=== PATIENT | female | born 1985 | race Caucasian/White ===

== ENCOUNTER 2016-11-12 16:42 | Inpatient (IN) | payer OTHER ==
[~2016-11-12] VITALS: Ht 165.1 cm; Wt 75.0 kg
[2016-11-12 16:45] VITALS: Ht 165.1 cm; Wt 75.0 kg
--- NOTE | 2016-11-12 17:59 | ERA ---
ER Documentation Chief Complaint Date/Time DATE: 11/12/16 TIME: 17:58 Chief Complaint SENT BY PMD FOR LOW HGB 4.0,WEAKNESS HPI 31-year-old female history of chronic anemia with a hemoglobin of 4 since June. The patient has tried B12 shots, last on the seventh of this month. Her e tailer, oncologist sent her to the emergency room. 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 The patient states that she feels her usual self which consists of generalized weakness, dyspnea on exertion. She denies any hematemesis, no melena, no other sources of bleeding. ROS All systems reviewed and are negative except as per history of present illness. Medications Home Meds Reported Medications Ferrous Sulfate (Iron) Unknown Strength Capsule.er, 1 TAB PO DAILY, CAP 11/12/16 Ascorbic Acid* (Vitamin C*) 500 Mg Capsule.sa, 500 MG PO DAILY, CAP 11/12/16 Folic Acid* (Folic Acid*) 1 Mg Tablet, 1 MG PO DAILY, TAB 11/12/16 Prednisone* (Prednisone*) 10 Mg Tab, 10 MG PO DAILY, TAB 11/12/16 Albuterol Sulfate* (Ventolin HFA*) 18 Gm Hfa.aer.ad, 2 PUFF INHALATION Q4H, #1 INHALER 11/12/16 Azithromycin* (Zithromax* Tri-Frank) 500 Mg Tablet, 250 MG PO DAILY for 3 Days, TAB 11/12/16 Allergies Allergies: Coded Allergies: No Known Allergy (Unverified , 11/12/16) PMhx/Soc Medical and Surgical Hx: pt denies Surgical Hx Hx Miscellaneous Medical Probl: Yes (Anemia) Hx Alcohol Use: No Hx Substance Use: No Hx Tobacco Use: No Smoking Status: Never smoker FmHx Family History: No diabetes Physical Exam Vitals Vital Signs Date Time Temp Pulse Resp B/P Pulse Ox O2 Delivery O2 Flow Rate FiO2 11/12/16 21:03 98.7 107 18 115/56 100 Room Air 11/12/16 20:36 98.6 111 16 108/51 98 Room Air 11/12/16 16:45 98.0 125 18 118/68 98 Physical Exam General: Well developed, well nourished, no acute distress, pallor Head: Normocephalic, atraumatic. Eyes: Pupils equally reactive, EOM intact ENT: Moist mucous membranes Neck: Supple, no lymphadenopathy Respiratory: Lungs clear bilaterally, no distress Cardiovascular: Tachycardia, no murmurs, rubs, or gallops Abdominal: Soft, non-tender, non-distended, no peritoneal signs : Deferred MSK: No edema, no unilateral swelling, 5/5 strength Neurologic: Alert and oriented, moving all extremities, normal speech, no focal weakness, no cerebellar signs Skin: No rash, pallor Psych: Normal mood Result Diagram: 11/12/16 1821 11/12/16 182 Results 24 hrs Laboratory Tests Test 11/12/16 18:21 White Blood Count 17.710^3/ul Red Blood Count 1.1610^6/ul Hemoglobin 4.7g/dl Hematocrit 15.2% Mean Corpuscular Volume 131.0fl Mean Corpuscular Hemoglobin 40.5pg Mean Corpuscular Hemoglobin Concent 30.9g/dl Red Cell Distribution Width 28.4% Platelet Count 40495^3/UL Mean Platelet Volume 10.5fl Neutrophils % 60.0% Band Neutrophils % 4.0% Lymphocytes % 7.0% Monocytes % 14.0% Eosinophils % 1.0% Basophils % % Metamyelocytes % 2.0% Myelocytes % 4.0% Promyelocytes % 7.0% Blast Cells % 1.0% Nucleated Red Blood Cells % 354.0/100WBC Neutrophils # 49.310^3/ul Lymphocytes # 5.710^3/ul Monocytes # 11.310^3/ul Eosinophils # 0.810^3/ul Basophils # 10^3/ul Metamyelocytes # 1.6 Myelocytes # 3.2 Promyelocytes # 5.7 Platelet Estimate PLT APPEAR ADEQUATE Large Platelets FEW Dimorphic Red Blood Cells MODERATE Polychromasia MANY Poikilocytosis FEW Basophilic Stippling FEW Anisocytosis MANY Spherocytes FEW Tear Drop Cells FEW Rouleau MODERATE Schistocytes FEW Absolute Reticulocyte Count 0.230X10^6 Percent Reticulocyte Count 19.8% Prothrombin Time 15.0Sec Prothrombin Time Ratio 1.2 INR International Normalized Ratio 1.17 Activated Partial Thromboplast Time 28.4Sec Sodium Level 140mmol/L Potassium Level 4.3mmol/L Chloride Level 107mmol/L Carbon Dioxide Level 24mmol/L Anion Gap 13 Blood Urea Nitrogen 16mg/dl Creatinine 0.90mg/dl Glucose Level 119mg/dl Uric Acid 6.5mg/dl Calcium Level 8.6mg/dl Total Bilirubin 2.0mg/dl Direct Bilirubin 0.00mg/dl Indirect Bilirubin 2.0mg/dl Aspartate Amino Transf (AST/SGOT) 83IU/L Alanine Aminotransferase (ALT/SGPT) 30IU/L Alkaline Phosphatase 86IU/L Lactate Dehydrogenase 4735IU/L Total Protein 9.0g/dl Albumin 4.7g/dl Globulin 4.30g/dl Albumin/Globulin Ratio 1.09 Vitamin B12 Level 863pg/ml Folate 18.0ng/ml Serum HCG, Qualitative NEGATIVE Current Medications Medications (Trade) Dose Ordered Sig/Corey Route PRN Reason Start Time Stop Time Status Last Admin Dose Admin Ondansetron HCl (Zofran Inj) 4 mg BRIDGE ORDER PRN IV NAUSEA AND/OR VOMITING 11/12/16 20:30 4 20:29 Acetaminophen (Tylenol Tab) 650 mg ER BRIDGE PRN PO MILD PAIN/FEVER 11/12/16 20:30 11/13/16 20:29 Procedures/MDM LAB INTERPRETATION: Leukocytosis with immature cells, elevated LDH MEDICAL DECISION MAKING: The patient presents with a stable hemoglobin and significant anemia for since June. The patient's e tailer oncologist would like to admit the patient for bone marrow biopsy. She is concerned for underlying leukemia. ER COURSE: The patient's laboratory testing is suggestive of early leukemia. Initial recommendations for IV iron and Epogen were held based on this information. The patient will be arranged for bone marrow biopsy in the morning. The patient was informed of potential diagnosis. Dr. Pak was notified. The patient does not wish to have a blood transfusion despite her significant anemia. The patient verbalizes understanding, risks, benefits, alternatives were discussed. The patient states remote history of Sabianist and extreme concern for transfusion. I kept the patient and/or family informed of laboratory and diagnostic imaging results throughout the emergency room course. DISPOSITION PLAN: Medical surgical admission given the fact that the patient does not wish to have transfusion CONSULTATION: Accepting care team and consultations: I discussed the current laboratory data, diagnostic imaging and emergency care provided. Admitting team: Dr. Will Admitting team indication: Insurance directed Consulting services: Dr. Pak, hematology oncology Departure Diagnosis: Primary Impression: Symptomatic anemia Additional Impression: Pancytopenia Condition: Stable JULIOCESAR HICKEY MD Nov 12, 2016 17:59
[2016-11-12] MEDS ORDERED: AZIT500T2 PO (18:28)
[2016-11-12] MEDS ORDERED: ALBU18HF INHALATION (18:30)
[2016-11-12] MEDS ORDERED: FOLI-49 PO (18:31)
[2016-11-12] MEDS ORDERED: PRED10TA PO (18:31)
[2016-11-12 18:32] LABS: ADD SCAN DIFF NO
[2016-11-12] MEDS ORDERED: ASCO500C7 PO (18:32)
[2016-11-12] MEDS ORDERED: FERR325C PO (18:34)
[2016-11-12 18:35] LABS: ABNORMAL IP MESSAGE 1; HEMATOCRIT 15.2 % (37.0-47.0); MEAN CORPUSCULAR HEMOGLOBIN 40.5 pg (29.0-33.0); MEAN CORPUSCULAR HGB CONC 30.9 g/dl (32.0-37.0); MEAN PLATELET VOLUME 10.5 fl (7.4-10.4); PLATELET COUNT 132 10^3/UL (140-415); RED BLOOD COUNT 1.16 10^6/ul (4.20-5.40); RED CELL DISTRIBUTION WIDTH 28.4 % (11.5-14.5); RETICULOCYTE COUNT % 19.8 % (0.5-1.5)
[2016-11-12 18:46] LABS: INR 1.17; PARTIAL THROMBOPLASTIN TIME 28.4 Sec (25.0-35.0); PT RATIO 1.2
[2016-11-12 18:47] LABS: ALBUMIN 4.7 g/dl (3.3-4.9); ALBUMIN/GLOBULIN RATIO 1.09; CALCIUM 8.6 mg/dl (8.4-10.2); CREATININE 0.9 mg/dl (0.44-1.00); POTASSIUM 4.3 mmol/L (3.5-5.1); URIC ACID 6.5 mg/dl (3.1-7.9)
[2016-11-12] MEDS ORDERED: ONDANSETRON 4 MG INJ IV PRN (20:30)
[2016-11-12] MEDS ORDERED: ACETAMINOPHEN 325 MG TAB PO PRN ×2 (20:30→23:30)
[2016-11-12 20:32] LABS: EOSINOPHILS # 0.8 10^3/ul (0.0-0.5); LYMPHOCYTES # 5.7 10^3/ul (0.8-2.9); MONOCYTE # 11.3 10^3/ul (0.3-0.9); MYELOCYTES # 3.2; NEUTROPHIL # 49.3 10^3/ul (1.6-7.5)
[2016-11-12 20:33] LABS: ANISOCYTOSIS MANY; POIKILOCYTOSIS FEW
[2016-11-12 20:34] LABS: SPHEROCYTES FEW; TEAR DROP CELLS FEW
[2016-11-12 20:35] LABS: SCHISTOCYTES FEW
[2016-11-12 20:36] LABS: POLYCHROMASIA MANY
[2016-11-12 20:40] LABS: PLATELET ESTIMATE PLT APPEAR ADEQUATE
[2016-11-12 21:03] VITALS: TEMP 98.7
[2016-11-12 21:09] VITALS: BP 111/55; RESP 18
[2016-11-12] MEDS ORDERED: AZITHROMYCIN 500MG/NS (PMX) 250 ML IVPB SCH ×2 (23:30→23:45)
[2016-11-12] MEDS ORDERED: ZOLPIDEM 5 MG TAB PO PRN (23:30)
[2016-11-12] MEDS: DEXTROSE 5%-0.45% NACL 1,000 ML IV SCH (23:32)
[2016-11-13] VITALS (9 sets, daily range): BP systolic 98–114; BP diastolic 54–73; PULSE 100–108; RESP 16–22
[2016-11-13] MEDS ORDERED: ALBUTEROL 18 GM INHALER INH SCH (01:00)
[2016-11-13] MEDS ORDERED: ALBUTEROL 18 GM INHALER INH PRN (01:30)
[2016-11-13] MEDS: FOLIC ACID 1 MG TAB PO SCH (09:00)
[2016-11-13] MEDS ORDERED: FERROUS SULFATE (EC) 325 MG TAB PO SCH (09:00)
[2016-11-13] MEDS: ASCORBIC ACID 500 MG TAB PO SCH (09:00)
[2016-11-13] MEDS ORDERED: SOD FERRIC GLUC COMPLX 125 MG in SOD CHLORIDE 0.9% 100 ML IVPB SCH (09:30)
[2016-11-13] MEDS ORDERED: EPOETIN 10000 UNITS/ML VIAL (ONCOLOGY) SC ONE (09:30)
[2016-11-13] MEDS: predniSOLONE 5 MG TAB PO SCH (09:35)
[2016-11-13] MEDS: AZITHROMYCIN 500MG/NS (PMX) 250 ML IVPB SCH (09:35)
[2016-11-13] MEDS ORDERED: LIDOCAINE 1% (MDV) 20 ML INJ ONE (11:00)
[2016-11-13] MEDS ORDERED: SOD CHLORIDE 0.9% 0 ML ONE (11:10)
[2016-11-13] MEDS ORDERED: MIDAZOLAM 1 MG/ML 2 ML INJ ONE (11:11)
[2016-11-13] MEDS ORDERED: FENTAnyl 50 MCG/ML VIAL ONE (11:11)
[2016-11-13] MEDS ORDERED: SOD CHLORIDE 0.9% 500 ML ONE (11:12)
[2016-11-13 11:25] LABS: HEMOGLOBIN 4.7 g/dl (12.0-16.0)
[2016-11-13 11:26] LABS: WHITE BLOOD COUNT 17.7 10^3/ul (4.8-10.8)
--- NOTE | 2016-11-13 13:00 | RADRPT ---
PROCEDURE: CT guided bone marrow aspiration and left iliac bone biopsy. CLINICAL INDICATION: History of pancytopenia. TECHNIQUE: Informed consent was obtained. The procedure, risks, benefits, complications and alternatives were e xplained to the patient. Risks including bleeding and infection were explained. The patient understo od and was willing to proceed. A procedural pause was performed. The patient's name, date of , and procedure to be performed were verified. One or more of the following dose reduction techni ques were used: Automated exposure control, adjustment of the mA and/or kV according to patient size , use of iterative reconstruction technique. Using local anesthetic, sterile technique and CT guidance, an 11-gauge On Control bone biopsy needle was advanced into the left iliac bone via a posterior approach. Bone marrow aspiration was perform ed yielding dry tap. The bone biopsy needle was then advanced an additional 4 cm using the power dr ill device and tissue was obtained. Adequate tissue was obtained according to the pathologist prese nt during the procedure. The needle was removed. A postprocedural scan was performed. A dressing was applied. The patient tolerated procedure well. COMPARISON: None. FINDINGS: Initial images demonstrate the tip of the needle at the posterior margin of the left iliac bone. Nina bsequent images demonstrate the needle within the bone. Post biopsy images demonstrate no immediate complication. IMPRESSION: 1. Successful CT guided bone marrow biopsy. 2. The bone marrow aspiration yielded a dry tap. RPTAT: QQ .Sam Domingo MD, Date Time Electronically viewed and signed by .Sam Domingo MD, MD on 11/13/2016 13:00 .R/
[2016-11-13] MEDS: SOD FERRIC GLUC COMPLX 125 MG in SOD CHLORIDE 0.9% 100 ML IVPB SCH (13:27)
[2016-11-13] MEDS: DEXTROSE 5%-0.45% NACL 1,000 ML IV SCH (13:31)
--- NOTE | 2016-11-13 14:50 | CONS ---
Date/Time of Note Date/Time of Note DATE: 11/13/16 TIME: 14:22 Assessment/Plan Assessment/Plan Chief Complaint/Hosp Course 31 yo female with severe macrocytic anemia in the setting of increased nucleated RBCs, and blasts in the periphery. Bone Marrow bx in the past did now show hematologic malignancy but suggested Vitamin b12 deficiency. Unfortunately even with 3 months of Vitamin b12 supplementation patient's Hg continues to drop. Furthermore it appears she is developing basts in the periphery. 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 Spoke with Dr. Arnett who has agreed to accept this patient Approximately 40 min were spent at patient;s bedside and in coordination of her care Problems: Consultation Date/Type/Reason Admit Date/Time Nov 12, 2016 at 20:18 Date of Consultation: Nov 13, 2016 Type of Consultation: Hematology Reason for Consultation severe anemia Referring Provider: ARGENIS MCKENNA MD Hx of Present Illness 31yo Taoist female who first presented to my office in Jul 2016 with 3 months of "feeling sick and weak". In Jun 2016 she presented to [facility] where she was found to have a Hg 6. Patient is a Taoist and thus refused blood transfusion and left the hospital with a follow up appointment to see hematology. When patient presented to our office she was found to have a Hg of 5, WBC count of 18 and platelet count of 241. PT had a bone marrow bx done at that time which revealed erythroid hyperplasia but no evidence of leukemia. The marrow was most consistent with severe Vitamin b12 deficiency. Furthermore at the time her Vitamin b12 levels as an out patient were very low. We therefore began to treat the patient with Vitamin B12 supplementation subcutaneously. Unfortunately her hematologic problems have only gotten worse and now her peripheral seam shows questionable blasts raising concern for leukemia. She has thus been admitted for further workup and still refuses blood transfusion. Another bone marrow bx was done this morning that was a dry tap. Constitutional: diaphoresis, other (weak), poor po Eyes: no complaints ENT: no complaints Respiratory: shortness of breath Cardiovascular: no complaints Gastrointestinal: no complaints Genitourinary: no complaints Musculoskeletal: other (weakness) Neurologic: no complaints Past Medical History anemia Past Surgical History Past Surgical Hx: no surgical history Family History Significant Family History: no pertinent family hx Social History h/o methamphetamine use heavy smoker but states she has since quit Alcohol Use: none Smoking Status: Former smoker Drug Use: none Exam/Review of Systems Vital Signs Vitals Vital Signs Date Time Temp Pulse Resp B/P Pulse Ox O2 Delivery O2 Flow Rate FiO2 11/13/16 12:05 105 20 108/68 97 Room Air 11/13/16 12:00 2.0 11/13/16 11:25 98.6 Intake and Output 11/12/16 11/12/16 11/13/16 15:00 23:00 07:00 Intake Total 700 ml Balance 700 ml Exam Constitutional: alert, oriented, other (pale) Psych: nl mood/affect, no complaints Head: normocephalic Eyes: nl conjunctiva ENMT: nl external ears & nose Neck: non-tender, supple Respiratory: clear to auscultation, normal air movement Cardiovascular: nl pulses, regular rate and rhythm Gastrointestinal: soft Musculoskeletal: nl extremities to inspection, nl gait and stance Results Result Diagram: 11/12/16 1821 11/12/16 1821 Results 24 hrs Laboratory Tests Test 11/12/16 18:21 White Blood Count 17.7 H Red Blood Count 1.16 L Hemoglobin 4.7 *L Hematocrit 15.2 L Mean Corpuscular Volume 131.0 H Mean Corpuscular Hemoglobin 40.5 H Mean Corpuscular Hemoglobin Concent 30.9 L Red Cell Distribution Width 28.4 H Platelet Count 132 L Mean Platelet Volume 10.5 H Neutrophils % 60.0 Band Neutrophils % 4.0 Lymphocytes % 7.0 L Monocytes % 14.0 H Eosinophils % 1.0 Basophils % Metamyelocytes % 2.0 H Myelocytes % 4.0 H Promyelocytes % 7.0 H Blast Cells % 1.0 H Nucleated Red Blood Cells % 354.0 H Neutrophils # 49.3 H Lymphocytes # 5.7 H Monocytes # 11.3 H Eosinophils # 0.8 H Basophils # Metamyelocytes # 1.6 Myelocytes # 3.2 Promyelocytes # 5.7 Platelet Estimate PLT APPEAR ADEQUATE Large Platelets FEW Dimorphic Red Blood Cells MODERATE Polychromasia MANY Poikilocytosis FEW Basophilic Stippling FEW Anisocytosis MANY Spherocytes FEW Tear Drop Cells FEW Rouleau MODERATE Schistocytes FEW Absolute Reticulocyte Count 0.230 H Percent Reticulocyte Count 19.8 H Prothrombin Time 15.0 H Prothrombin Time Ratio 1.2 INR International Normalized Ratio 1.17 Activated Partial Thromboplast Time 28.4 Sodium Level 140 Potassium Level 4.3 Chloride Level 107 Carbon Dioxide Level 24 Anion Gap 13 Blood Urea Nitrogen 16 Creatinine 0.90 Glucose Level 119 Uric Acid 6.5 Calcium Level 8.6 Total Bilirubin 2.0 H Direct Bilirubin 0.00 Indirect Bilirubin 2.0 H Aspartate Amino Transf (AST/SGOT) 83 H Alanine Aminotransferase (ALT/SGPT) 30 Alkaline Phosphatase 86 Lactate Dehydrogenase 4735 H Total Protein 9.0 H Albumin 4.7 Globulin 4.30 H Albumin/Globulin Ratio 1.09 Vitamin B12 Level 863 Folate 18.0 Serum HCG, Qualitative NEGATIVE Medications Medications Current Medications Dextrose/Sodium Chloride (D5-1/2ns) 1,000 ml @ 75 mls/hr [id number] IV Last administered on 11/13/16 13:31; Admin Dose 75 MLS/HR; Start 11/12/16 at 23:30 Acetaminophen (Tylenol Tab) 650 mg Q6H PRN PO PAIN AND OR ELEVATED TEMP Last administered on 11/13/16 13:39; Admin Dose 650 MG; Start 11/12/16 at 23:30 Zolpidem Tartrate 5 mg 5 mg HS PRN PO INSOMNIA; Start 11/12/16 at 23:30 Azithromycin (Zithromax 500mg/ NS (Pmx)) 250 ml @ 250 mls/hr Q24H IVPB Last administered on 11/13/16 09:35; Admin Dose 250 MLS/HR; Start 11/13/16 at 09:00 ; Stop 11/17/16 at 09:59 Ascorbic Acid (Vitamin C) 500 mg DAILY PO ; Start 11/13/16 at 09:00 Folic Acid (Folic Acid) 1 mg DAILY PO ; Start 11/13/16 at 09:00 Prednisolone (Prednisolone) 10 mg DAILY PO Last administered on 11/13/16 09:35 ; Admin Dose 10 MG; Start 11/13/16 at 09:00 Ferrous Sulfate 325 mg 325 mg BID PO ; Start 11/18/16 at 09:00 Ferric Sodium Gluconate Complex/ Sodium Chloride (Ferrlecit/NS) 110 ml @ 110 mls/hr Q24H IVPB Last administered on 11/13/16t 13:27; Admin Dose 110 MLS/HR; Start 11/13/16 at 12:00; Stop 11/17/16 at 12:59 PAMELA BENDER M.D. Nov 13, 2016 14:36
[2016-11-13 15:51] LABS: URIC ACID 5.2 mg/dl (3.1-7.9)
--- NOTE | 2016-11-13 16:04 | HP ---
DATE OF ADMISSION: 11/12/2016 CHIEF COMPLAINT: Generalized weakness due to anemia. HISTORY OF PRESENT ILLNESS: The patient is a 31-year-old female. The patient is an otherwise healt hy female who was diagnosed with anemia in 06/2016, noted that her hemoglobin was 6. The patient al so at that time was complaining of generalized weakness. 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 The patient was followed with Dr. Pak as an outpatient. The pat ieflip underwent bone marrow biopsy in the past that showed hematologic malignancy; however, sug gested vitamin B deficiency, and patient was given vitamin B. The patient was admitted this time fo r hemoglobin, and hemoglobin was found to be 4.7 on admission. The patient was admitted for repeat bone marrow biopsy. The patient complains of generalized back pain and generalized weakness. The p atient denies any fever, chills, denies any shortness of breath, denies any chest pain, denies any s welling, denies nausea or vomiting. The patient will be admitted for further evaluation and managem ent. PAST MEDICAL HISTORY: Positive for anemia and polycystic ovarian. PAST SURGICAL HISTORY: Status post and status post cholecystectomy. FAMILY HISTORY: Negative for any cancer. SOCIAL HISTORY: The patient lives at home with her family. The patient denies any alcohol use. Th e patient is a former smoker, smoked about 6 years ago, quit. The patient also is a former methamph etamine user, stated that she quit a couple of years ago. ALLERGIES: NO KNOWN ALLERGIES. HOME MEDICATIONS: 1. Ferrous sulfate. 2. Vitamin C. 3. Folic acid. 4. Prednisone 5. Ventolin. REVIEW OF SYSTEMS: A 12-point review of systems is negative unless what mentioned in the HPI. PHYSICAL EXAMINATION: GENERAL: Well-developed, well-nourished female in no acute distress. VITAL SIGNS: Temperature 98.6, pulse is 105, blood pressure is 108/68, respiratory rate 20, oxygen saturation 97% on room air. HEENT: Head is atraumatic, normocephalic. Pupils equal, round, reactive to light and accommodation . Oral mucosa is pink and moist. NECK: Supple, no cervical lymphadenopathy, no thyromegaly. CHEST: Lungs clear bilaterally. There is no rhonchi, wheezes, or rales noted. CARDIOVASCULAR: Normal S1, S2. No murmurs, gallops, clicks, rubs noted. The patient is slightly t achycardic. ABDOMEN: Round, soft, nondistended, nontender. Bowel sounds present. There is no guarding, no mari ound tenderness. EXTREMITIES: There is no edema, clubbing, cyanosis. Pulses equal bilaterally 2+. SKIN: There is no rash, petechiae noted. NEUROLOGIC: The patient is awake, alert and oriented x4. No focal deficits noted. Motor strength is 5/5 in all extremities. LABORATORY DATA: On admission, CBC: White blood cells 17.7, hemoglobin 4.7, hematocrit 15.2, plate lets 132. Chemistry: Sodium is 140, potassium 4.3, chloride 107, carbon dioxide 24, anion gap 15, BUN 16, creatinine 0.9, glucose 119. AST is 83, ALT 30, alkaline phosphatase 86. PT is 15.0, INR i s 1.17, APTT is 28.4. ASSESSMENT AND PLAN: 1. Symptomatic anemia. 2. Thrombocytopenia and leukocytosis. The patient underwent biopsy today. The patient is followed by Dr. Pak in hematology/oncology consultation. The patient is currently getting IV iron and Epo gen. Case management asked to arrange to transfer to tertiary care facility for further care and ma nagement. Anyway, unfortunately, the patient is a [employer] and cannot get a blood transfus ion. Continue to monitor patient closely while in house. Further recommendations based on clinical course. Plan of care discussed with Dr. Will. Dictated By: [employer] for ARGENIS WILL MD SR/NTS Conf#: [id number] DID#: [id number]
[2016-11-13] MEDS: IBUPROFEN 600 MG TAB PO PRN (20:34)
[2016-11-14] VITALS (8 sets, daily range): BP systolic 98–115; BP diastolic 52–68; PULSE 100–105; RESP 17–20
[2016-11-14 05:12] LABS: ADD SCAN DIFF NO
[2016-11-14 05:18] LABS: ABNORMAL IP MESSAGE 1; HEMATOCRIT 12.6 % (37.0-47.0); MEAN CORPUSCULAR HEMOGLOBIN 40.4 pg (29.0-33.0); MEAN CORPUSCULAR HGB CONC 30.2 g/dl (32.0-37.0); MEAN PLATELET VOLUME 10.9 fl (7.4-10.4); PLATELET COUNT 109 10^3/UL (140-415); RED BLOOD COUNT 0.94 10^6/ul (4.20-5.40); RED CELL DISTRIBUTION WIDTH 28.2 % (11.5-14.5)
[2016-11-14] MEDS: DEXTROSE 5%-0.45% NACL 1,000 ML IV SCH (06:41)
[2016-11-14 06:53] LABS: HEMOGLOBIN 3.8 g/dl (12.0-16.0)
[2016-11-14] MEDS: AZITHROMYCIN 500MG/NS (PMX) 250 ML IVPB SCH (09:22)
[2016-11-14] MEDS: ASCORBIC ACID 500 MG TAB PO SCH (09:23)
[2016-11-14] MEDS: FOLIC ACID 1 MG TAB PO SCH (09:23)
[2016-11-14] MEDS: predniSOLONE 5 MG TAB PO SCH (09:23)
[2016-11-14 09:42] LABS: WHITE BLOOD COUNT 13.2 10^3/ul (4.8-10.8)
--- NOTE | 2016-11-14 11:12 | CONS ---
Date/Time of Note Date/Time of Note DATE: 11/14/16 TIME: 11:08 Assessment/Plan Assessment/Plan Chief Complaint/Hosp Course 31 yo female with severe macrocytic anemia in the setting of increased nucleated RBCs, and blasts in the periphery. Bone Marrow bx in the past did now show hematologic malignancy but suggested Vitamin b12 deficiency. Unfortunately even with 3 months of Vitamin b12 supplementation patient's Hg continues to drop. Furthermore it appears she is developing basts in the periphery. 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 Spoke with Dr. Arnett who has agreed to accept this patient. awaiting clearance from insurance and transfer once bed is available -will stop CBC checks for now as this is causing uneeded phlebotomy. if her vitals or clinical exam worsen will check CBC at that time Approximately 40 min were spent at patient;s bedside and in coordination of her care Problems: Consultation Date/Type/Reason Admit Date/Time Nov 12, 2016 at 20:18 Initial Consult Date 11/13/16 Type of Consultation: Hematology Reason for Consultation myelodysplasia/ anemia Referring Provider: ARGENIS MCKENNA MD 24 HR Interval Summary Free Text/Dictation pt Hg dropped from yesterday. no evidence of bleeding Exam/Review of Systems Vital Signs Vitals Vital Signs Date Time Temp Pulse Resp B/P Pulse Ox O2 Delivery O2 Flow Rate FiO2 11/14/16 08:54 98.1 103 17 115/68 99 11/14/16 08:19 Room Air 11/13/16 12:00 2.0 Intake and Output 11/13/16 11/13/16 11/14/16 15:00 23:00 07:00 Intake Total 550 ml 1000 ml 1400 ml Output Total 850 ml Balance 550 ml 1000 ml 550 ml Exam Constitutional: alert, frail, oriented, other (pale) Head: atraumatic, normocephalic Eyes: nl conjunctiva ENMT: nl external ears & nose, nl lips & teeth Neck: non-tender, supple Respiratory: clear to auscultation, normal air movement Cardiovascular: other (tachycardic) Gastrointestinal: soft Musculoskeletal: nl extremities to inspection Results Result Diagram: 11/14/16 0429 11/12/16 1821 Results 24 hrs Laboratory Tests Test 11/13/16 14:50 11/14/16 04:29 Uric Acid 5.2 Lactate Dehydrogenase 4134 H White Blood Count 13.2 #H Red Blood Count 0.94 L Hemoglobin 3.8 *L Hematocrit 12.6 L Mean Corpuscular Volume 134.0 H Mean Corpuscular Hemoglobin 40.4 H Mean Corpuscular Hemoglobin Concent 30.2 L Red Cell Distribution Width 28.2 H Platelet Count 109 L Mean Platelet Volume 10.9 H Neutrophils % 55.0 Band Neutrophils % 3.0 Lymphocytes % 19.0 Monocytes % 4.0 Eosinophils % 1.0 Basophils % 1.0 Metamyelocytes % 7.0 H Myelocytes % 6.0 H Promyelocytes % 4.0 H Nucleated Red Blood Cells % 274.0 H Neutrophils # 0.0 L Lymphocytes # 0.0 L Monocytes # 0.0 L Eosinophils # 0.0 Basophils # 0.0 Metamyelocytes # 0.0 Myelocytes # 0.0 Promyelocytes # 0.0 Medications Medications Current Medications Acetaminophen (Tylenol Tab) 650 mg Q6H PRN PO PAIN AND OR ELEVATED TEMP Last administered on 11/13/16 13:39; Admin Dose 650 MG; Start 11/12/16 at 23:30 Zolpidem Tartrate 5 mg 5 mg HS PRN PO INSOMNIA; Start 11/12/16 at 23:30 Azithromycin (Zithromax 500mg/ NS (Pmx)) 250 ml @ 250 mls/hr Q24H IVPB Last administered on 11/14/16 09:22; Admin Dose 250 MLS/HR; Start 11/13/16 at 09:00 ; Stop 11/17/16 at 09:59 Ascorbic Acid (Vitamin C) 500 mg DAILY PO Last administered on 11/14/16 09:23 ; Admin Dose 500 MG; Start 11/13/16 at 09:00 Folic Acid (Folic Acid) 1 mg DAILY PO Last administered on 11/14/16 09:23; Admin Dose 1 MG; Start 11/13/16 at 09:00 Prednisolone (Prednisolone) 10 mg DAILY PO Last administered on 11/14/16 09:23 ; Admin Dose 10 MG; Start 11/13/16 at 09:00 Ferrous Sulfate 325 mg 325 mg BID PO ; Start 11/18/16 at 09:00 Ferric Sodium Gluconate Complex/ Sodium Chloride (Ferrlecit/NS) 110 ml @ 110 mls/hr Q24H IVPB Last administered on 11/13/16 13:27; Admin Dose 110 MLS/HR; Start 11/13/16 at 12:00; Stop 11/17/16 at 12:59 Ibuprofen (Motrin) 600 mg Q6H PRN PO PAIN Last administered on 11/13/16 20:34 ; Admin Dose 600 MG; Start 11/13/16 at 20:00 PAMELA BENDER M.D. Nov 14, 2016 11:12
[2016-11-14] MEDS: SOD FERRIC GLUC COMPLX 125 MG in SOD CHLORIDE 0.9% 100 ML IVPB SCH (12:00)
--- NOTE | 2016-11-14 14:49 | PN ---
Date/Time of Note Date/Time of Note DATE: 11/14/16 TIME: 14:43 Assessment/Plan VTE Prophylaxis VTE Prophylaxis Intervention: other Lines/Catheters IV Catheter Type (from [facility]): Peripheral IV Urinary Cath still in place: No Assessment/Plan Assessment/Plan 1. Symptomatic anemia. - per Dr. Pak in hematology/oncology consultation. - IV iron and Epogen. - [facility] and cannot get a blood transfusion - Continue to monitor patient closely while in house. 2. Thrombocytopenia and leukocytosis - SP biopsy . Case management asked to arrange to transfer to tertiary care facility for further care and management. . Further recommendations based on clinical course. Plan of care discussed with Dr. Will. Exam/Review of Systems Vital Signs Vitals Vital Signs Date Time Temp Pulse Resp B/P Pulse Ox O2 Delivery O2 Flow Rate FiO2 11/14/16 13:28 104 11/14/16 13:03 98.7 18 112/52 100 11/14/16 08:19 Room Air 11/13/16 12:00 2.0 Intake and Output 11/13/16 11/13/16 11/14/16 15:00 23:00 07:00 Intake Total 550 ml 1000 ml 1400 ml Output Total 850 ml Balance 550 ml 1000 ml 550 ml Results Result Diagram: 11/14/16 0429 11/12/16 1821 Results 24 hrs Laboratory Tests Test 11/13/16 14:50 11/14/16 04:29 Uric Acid 5.2 Lactate Dehydrogenase 4134 H White Blood Count 13.2 #H Red Blood Count 0.94 L Hemoglobin 3.8 *L Hematocrit 12.6 L Mean Corpuscular Volume 134.0 H Mean Corpuscular Hemoglobin 40.4 H Mean Corpuscular Hemoglobin Concent 30.2 L Red Cell Distribution Width 28.2 H Platelet Count 109 L Mean Platelet Volume 10.9 H Neutrophils % 55.0 Band Neutrophils % 3.0 Lymphocytes % 19.0 Monocytes % 4.0 Eosinophils % 1.0 Basophils % 1.0 Metamyelocytes % 7.0 H Myelocytes % 6.0 H Promyelocytes % 4.0 H Nucleated Red Blood Cells % 274.0 H Neutrophils # 0.0 L Lymphocytes # 0.0 L Monocytes # 0.0 L Eosinophils # 0.0 Basophils # 0.0 Metamyelocytes # 0.0 Myelocytes # 0.0 Promyelocytes # 0.0 Medications Medications Current Medications Acetaminophen (Tylenol Tab) 650 mg Q6H PRN PO PAIN AND OR ELEVATED TEMP Last administered on 11/13/16 13:39; Admin Dose 650 MG; Start 11/12/16 at 23:30 Zolpidem Tartrate 5 mg 5 mg HS PRN PO INSOMNIA; Start 11/12/16 at 23:30 Azithromycin (Zithromax 500mg/ NS (Pmx)) 250 ml @ 250 mls/hr Q24H IVPB Last administered on 11/14/16 09:22; Admin Dose 250 MLS/HR; Start 11/13/16 at 09:00 ; Stop 11/17/16 at 09:59 Ascorbic Acid (Vitamin C) 500 mg DAILY PO Last administered on 11/14/16 09:23 ; Admin Dose 500 MG; Start 11/13/16 at 09:00 Folic Acid (Folic Acid) 1 mg DAILY PO Last administered on 11/14/16 09:23; Admin Dose 1 MG; Start 11/13/16 at 09:00 Prednisolone (Prednisolone) 10 mg DAILY PO Last administered on 11/14/16 09:23 ; Admin Dose 10 MG; Start 11/13/16 at 09:00; Status Future Hold Ferrous Sulfate 325 mg 325 mg BID PO ; Start 11/18/16 at 09:00 Ferric Sodium Gluconate Complex/ Sodium Chloride (Ferrlecit/NS) 110 ml @ 110 mls/hr Q24H IVPB Last administered on 11/14/16 12:00; Admin Dose 110 MLS/HR; Start 11/13/16 at 12:00; Stop 11/17/16 at 12:59 Ibuprofen (Motrin) 600 mg Q6H PRN PO PAIN Last administered on 11/13/16 20:34 ; Admin Dose 600 MG; Start 11/13/16 at 20:00 Prednisone (Prednisone) 60 mg DAILY PO ; Start 11/15/16 at 09:00 JORJE NICHOLAS Nov 14, 2016 14:48
[2016-11-14] MEDS: TRIMETHOPRIM/SULFAMETHOX (DS) TAB PO SCH (15:44)
[2016-11-14] MEDS: predniSONE 20 MG TAB PO SCH (15:44)
[2016-11-14] MEDS ORDERED: TRIMETHOPRIM/SULFAMETHOX (DS) TAB PO ONE (15:45)
[2016-11-14] MEDS: ALBUTEROL 18 GM INHALER INH SCH ×2 (15:45→20:48)
[2016-11-15] VITALS (13 sets, daily range): BP systolic 95–108; BP diastolic 53–60; PULSE 92–120; RESP 18–20
[2016-11-15] MEDS: ALBUTEROL 18 GM INHALER INH SCH ×7 (00:41→21:00)
[2016-11-15 06:48] LABS: ADD SCAN DIFF NO
[2016-11-15 06:54] LABS: ABNORMAL IP MESSAGE 1; HEMATOCRIT 14.3 % (37.0-47.0); MEAN CORPUSCULAR HEMOGLOBIN 40.7 pg (29.0-33.0); MEAN CORPUSCULAR HGB CONC 30.8 g/dl (32.0-37.0); MEAN CORPUSCULAR VOLUME 132.4 fl (82.0-101.0); MEAN PLATELET VOLUME 10.6 fl (7.4-10.4); PLATELET COUNT 126 10^3/UL (140-415); RED BLOOD COUNT 1.08 10^6/ul (4.20-5.40); RED CELL DISTRIBUTION WIDTH 28.1 % (11.5-14.5)
[2016-11-15 07:44] LABS: CALCIUM 9.5 mg/dl (8.4-10.2); CREATININE 0.61 mg/dl (0.44-1.00); POTASSIUM 4.1 mmol/L (3.5-5.1)
[2016-11-15 07:51] LABS: HEMOGLOBIN 4.4 g/dl (12.0-16.0)
[2016-11-15] MEDS: AZITHROMYCIN 500MG/NS (PMX) 250 ML IVPB SCH (08:09)
[2016-11-15] MEDS: ASCORBIC ACID 500 MG TAB PO SCH (08:10)
[2016-11-15] MEDS: predniSONE 20 MG TAB PO SCH (08:10)
[2016-11-15] MEDS: FOLIC ACID 1 MG TAB PO SCH (08:10)
[2016-11-15] MEDS ORDERED: EPOETIN 10000 UNITS/ML VIAL (ONCOLOGY) SC ONE (08:30)
[2016-11-15] MEDS ORDERED: AZITHROMYCIN 250 MG TAB PO SCH (09:00)
[2016-11-15] MEDS ORDERED: FOLIC ACID 1 MG TAB PO SCH (09:00)
[2016-11-15] MEDS ORDERED: predniSONE 10 MG TAB PO SCH (09:00)
[2016-11-15 11:05] LABS: ANISOCYTOSIS 2+; HYPOCHROMASIA 2+
[2016-11-15 11:06] LABS: POLYCHROMASIA FEW
[2016-11-15 11:07] LABS: WHITE BLOOD COUNT 20.3 10^3/ul (4.8-10.8)
[2016-11-15] MEDS: SOD FERRIC GLUC COMPLX 125 MG in SOD CHLORIDE 0.9% 100 ML IVPB SCH (12:21)
--- NOTE | 2016-11-15 14:18 | CONS ---
Date/Time of Note Date/Time of Note DATE: 11/15/16 TIME: 14:12 Assessment/Plan Assessment/Plan Chief Complaint/Hosp Course 31 yo female with severe macrocytic anemia in the setting of increased nucleated RBCs, and blasts in the periphery. Bone Marrow bx in the past did now show hematologic malignancy but suggested Vitamin b12 deficiency. Unfortunately even with 3 months of Vitamin b12 supplementation patient's Hg continues to drop. 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 -cont Prednisone 1 mg/kg q day with Bactrim ppx -cont IV iron -increase Epogen to 20,000 units weekly as patient refused blood transfusion -will check MIRIAN given concern for underlying LUPUS -cont folate 2 mg q day given severe hemolysis -check daily H/H in pediatric tubes. will limit lab checks as much as possible Approximately 40 min were spent at patient;s bedside and in coordination of her care Problems: Consultation Date/Type/Reason Admit Date/Time Nov 12, 2016 at 20:18 Initial Consult Date 11/13/16 Type of Consultation: Hematology Reason for Consultation pt was started on Prednisone 1mg/kg yesterday. Hg claire since yesterday. feels better. IV iron continues. Shortness of breath is stable Referring Provider: ARGENIS MCKENNA MD Exam/Review of Systems Vital Signs Vitals Vital Signs Date Time Temp Pulse Resp B/P Pulse Ox O2 Delivery O2 Flow Rate FiO2 11/15/16 12:16 96 11/15/16 11:24 98.6 20 95/55 97 11/15/16 00:42 Room Air 11/13/16 12:00 2.0 Intake and Output 11/14/16 11/14/16 11/15/16 15:00 23:00 07:00 Intake Total 350 ml 300 ml Balance 350 ml 300 ml Exam Constitutional: alert, oriented Head: atraumatic, normocephalic Eyes: nl conjunctiva ENMT: nl external ears & nose Neck: non-tender, supple Respiratory: clear to auscultation, normal air movement Cardiovascular: regular rate and rhythm Gastrointestinal: soft Musculoskeletal: nl extremities to inspection, nl gait and stance Extremities: normal pulses Results Result Diagram: 11/15/16 0615 11/15/1615 Results 24 hrs Laboratory Tests Test 11/15/16 06:15 White Blood Count 20.3 #H Red Blood Count 1.08 L Hemoglobin 4.4 *L Hematocrit 14.3 L Mean Corpuscular Volume 132.4 H Mean Corpuscular Hemoglobin 40.7 H Mean Corpuscular Hemoglobin Concent 30.8 L Red Cell Distribution Width 28.1 H Platelet Count 126 L Mean Platelet Volume 10.6 H Neutrophils % 53.0 Band Neutrophils % 5.0 Lymphocytes % 19.0 Monocytes % 8.0 Eosinophils % 3.0 Basophils % Metamyelocytes % 6.0 H Myelocytes % 4.0 H Promyelocytes % 2.0 H Nucleated Red Blood Cells % 253.0 H Neutrophils # 0.0 L Lymphocytes # 0.0 L Monocytes # 0.0 L Eosinophils # 0.0 Basophils # Metamyelocytes # 0.0 Myelocytes # 0.0 Promyelocytes # 0.0 Differential Comment MANUAL DIFF Polychromasia FEW Hypochromasia 2+ Anisocytosis 2+ Macrocytosis 3+ Sodium Level 140 Potassium Level 4.1 Chloride Level 109 Carbon Dioxide Level 22 Anion Gap 13 Blood Urea Nitrogen 12 Creatinine 0.61 Glucose Level 100 Calcium Level 9.5 Medications Medications Current Medications Acetaminophen (Tylenol Tab) 650 mg Q6H PRN PO PAIN AND OR ELEVATED TEMP Last administered on 11/13/16 13:39; Admin Dose 650 MG; Start 11/12/16 at 23:30 Zolpidem Tartrate 5 mg 5 mg HS PRN PO INSOMNIA; Start 11/12/16 at 23:30 Azithromycin (Zithromax 500mg/ NS (Pmx)) 250 ml @ 250 mls/hr Q24H IVPB Last administered on 11/15/16 08:09; Admin Dose 250 MLS/HR; Start 11/13/16 at 09:00 ; Stop 11/17/16 at 09:59 Ferrous Sulfate 325 mg 325 mg BID PO ; Start 11/18/16 at 09:00 Ferric Sodium Gluconate Complex/ Sodium Chloride (Ferrlecit/NS) 110 ml @ 110 mls/hr Q24H IVPB Last administered on 11/15/16 12:21; Admin Dose 110 MLS/HR; Start 11/13/16 at 12:00; Stop 11/17/16 at 12:59 Ibuprofen (Motrin) 600 mg Q6H PRN PO PAIN Last administered on 11/13/16 20:34 ; Admin Dose 600 MG; Start 11/13/16 at 20:00 Prednisone (Prednisone) 60 mg DAILY PO Last administered on 11/15/16 08:10; Admin Dose 60 MG; Start 11/14/16 at 16:00 Ascorbic Acid (Vitamin C) 500 mg DAILY PO Last administered on 11/15/16 08:10 ; Admin Dose 500 MG; Start 11/15/16 at 09:00 Folic Acid (Folic Acid) 2 mg DAILY PO Last administered on 11/15/16 08:10; Admin Dose 2 MG; Start 11/15/16 at 09:00 Trimethoprim/ Sulfamethoxazole (Bactrim (Ds)) 1 tab TuThSa@09 PO Last administered on 11/14/16 15:44; Admin Dose 1 TAB; Start 11/14/16 at 15:45 PAMELA BENDER M.D. Nov 15, 2016 14:18
--- NOTE | 2016-11-15 16:02 | PN ---
Date/Time of Note Date/Time of Note DATE: 11/15/16 TIME: 15:51 Assessment/Plan VTE Prophylaxis VTE Prophylaxis Intervention: SCD's Lines/Catheters [facility] [place] Urinary Cath still in place: No Assessment/Plan Chief Complaint/Hosp Course ASSESSMENT AND PLAN: - Autoimmune hemolytic anemia. Status post bone marrow biopsy on 11/13. The patient is followed by Dr. Pak in hematology/oncology consultation. The patient is currently getting IV iron and Epogen, prednisone and Bactrim. The patient is a [employer] and cannot get a blood transfusion. Continue to monitor patient closely while in house. - Thrombocytopenia and leukocytosis. Further recommendations based on clinical course. Plan of care discussed with Dr. Will. Problems: Subjective 24 Hr Interval Summary Free Text/Dictation Patient looks comfortable, denies any chest pain, denies shortness of breath. Exam/Review of Systems Vital Signs Vitals Vital Signs Date Time Temp Pulse Resp B/P Pulse Ox O2 Delivery O2 Flow Rate FiO2 11/15/16 15:32 99.0 98 20 106/58 99 11/15/16 00:42 Room Air 11/13/16 12:00 2.0 Intake and Output 11/14/16 11/14/16 11/15/16 15:00 23:00 07:00 Intake Total 350 ml 300 ml Balance 350 ml 300 ml Exam PHYSICAL EXAMINATION: GENERAL: Well-developed, well-nourished female in no acute distress. HEENT: Head is atraumatic, normocephalic. Pupils equal, round, reactive to light and accommodation. Oral mucosa is pink and moist. NECK: Supple, no cervical lymphadenopathy, no thyromegaly. CHEST: Lungs clear bilaterally. There is no rhonchi, wheezes, or rales noted. CARDIOVASCULAR: Normal S1, S2. No murmurs, gallops, clicks, rubs noted. The patient is slightly tachycardic. ABDOMEN: Round, soft, nondistended, nontender. Bowel sounds present. There is no guarding, no rebound tenderness. EXTREMITIES: There is no edema, clubbing, cyanosis. Pulses equal bilaterally 2 +. SKIN: There is no rash, petechiae noted. NEUROLOGIC: The patient is awake, alert and oriented x4. Results Result Diagram: 11/15/1615 4/21/17 0615 Results 24 hrs Laboratory Tests Test 11/15/16 06:15 White Blood Count 20.3 #H Red Blood Count 1.08 L Hemoglobin 4.4 *L Hematocrit 14.3 L Mean Corpuscular Volume 132.4 H Mean Corpuscular Hemoglobin 40.7 H Mean Corpuscular Hemoglobin Concent 30.8 L Red Cell Distribution Width 28.1 H Platelet Count 126 L Mean Platelet Volume 10.6 H Neutrophils % 53.0 Band Neutrophils % 5.0 Lymphocytes % 19.0 Monocytes % 8.0 Eosinophils % 3.0 Basophils % Metamyelocytes % 6.0 H Myelocytes % 4.0 H Promyelocytes % 2.0 H Nucleated Red Blood Cells % 253.0 H Neutrophils # 0.0 L Lymphocytes # 0.0 L Monocytes # 0.0 L Eosinophils # 0.0 Basophils # Metamyelocytes # 0.0 Myelocytes # 0.0 Promyelocytes # 0.0 Differential Comment MANUAL DIFF Polychromasia FEW Hypochromasia 2+ Anisocytosis 2+ Macrocytosis 3+ Sodium Level 140 Potassium Level 4.1 Chloride Level 109 Carbon Dioxide Level 22 Anion Gap 13 Blood Urea Nitrogen 12 Creatinine 0.61 Glucose Level 100 Calcium Level 9.5 Medications Medications Current Medications Acetaminophen (Tylenol Tab) 650 mg Q6H PRN PO PAIN AND OR ELEVATED TEMP Last administered on 11/13/16 13:39; Admin Dose 650 MG; Start 11/12/16 at 23:30 Zolpidem Tartrate 5 mg 5 mg HS PRN PO INSOMNIA; Start 11/12/16 at 23:30 Azithromycin (Zithromax 500mg/ NS (Pmx)) 250 ml @ 250 mls/hr Q24H IVPB Last administered on 11/15/16 08:09; Admin Dose 250 MLS/HR; Start 11/13/16 at 09:00 ; Stop 11/17/16 at 09:59 Ferrous Sulfate 325 mg 325 mg BID PO ; Start 11/18/16 at 09:00 Ferric Sodium Gluconate Complex/ Sodium Chloride (Ferrlecit/NS) 110 ml @ 110 mls/hr Q24H IVPB Last administered on 11/15/16 12:21; Admin Dose 110 MLS/HR; Start 11/13/16 at 12:00; Stop 11/17/16 at 12:59 Ibuprofen (Motrin) 600 mg Q6H PRN PO PAIN Last administered on 11/13/16 20:34 ; Admin Dose 600 MG; Start 11/13/16 at 20:00 Prednisone (Prednisone) 60 mg DAILY PO Last administered on 11/15/16 08:10; Admin Dose 60 MG; Start 11/14/16 at 16:00 Ascorbic Acid (Vitamin C) 500 mg DAILY PO Last administered on 11/15/16 08:10 ; Admin Dose 500 MG; Start 11/15/16 at 09:00 Folic Acid (Folic Acid) 2 mg DAILY PO Last administered on 11/15/16 08:10; Admin Dose 2 MG; Start 11/15/16 at 09:00 Trimethoprim/ Sulfamethoxazole (Bactrim (Ds)) 1 tab TuThSa@09 PO Last administered on 11/14/16 15:44; Admin Dose 1 TAB; Start 11/14/16 at 15:45 SMITH BUSTAMANTE Nov 15, 2016 16:01
[2016-11-16] VITALS (12 sets, daily range): BP systolic 95–126; BP diastolic 55–89; PULSE 89–103; RESP 19–20
[2016-11-16] MEDS: ALBUTEROL 18 GM INHALER INH SCH ×6 (01:00→20:57)
[2016-11-16 07:35] LABS: ADD SCAN DIFF NO
[2016-11-16 07:40] LABS: ABNORMAL IP MESSAGE 1; HEMATOCRIT 14.1 % (37.0-47.0); MEAN CORPUSCULAR HEMOGLOBIN 41.9 pg (29.0-33.0); MEAN CORPUSCULAR HGB CONC 31.2 g/dl (32.0-37.0); MEAN CORPUSCULAR VOLUME 134.3 fl (82.0-101.0); MEAN PLATELET VOLUME 10.7 fl (7.4-10.4); PLATELET COUNT 108 10^3/UL (140-415); RED BLOOD COUNT 1.05 10^6/ul (4.20-5.40); RED CELL DISTRIBUTION WIDTH 28.2 % (11.5-14.5)
[2016-11-16 07:49] LABS: HEMOGLOBIN 4.4 g/dl (12.0-16.0)
[2016-11-16] MEDS: IBUPROFEN 600 MG TAB PO PRN (07:50)
[2016-11-16] MEDS: TRIMETHOPRIM/SULFAMETHOX (DS) TAB PO SCH (07:50)
[2016-11-16] MEDS: ASCORBIC ACID 500 MG TAB PO SCH (07:50)
[2016-11-16] MEDS: predniSONE 20 MG TAB PO SCH (07:51)
[2016-11-16] MEDS: FOLIC ACID 1 MG TAB PO SCH (07:51)
[2016-11-16 07:55] LABS: POTASSIUM 3.7 mmol/L (3.5-5.1)
[2016-11-16 07:58] LABS: CREATININE 0.69 mg/dl (0.44-1.00)
[2016-11-16 07:59] LABS: CALCIUM 8.9 mg/dl (8.4-10.2)
[2016-11-16] MEDS: AZITHROMYCIN 500MG/NS (PMX) 250 ML IVPB SCH (08:56)
[2016-11-16 10:57] LABS: BASOPHIL # 0.7 10^3/ul (0.0-0.1); LYMPHOCYTES # 19.4 10^3/ul (0.8-2.9); MONOCYTE # 4.5 10^3/ul (0.3-0.9); NEUTROPHIL # 36.5 10^3/ul (1.6-7.5)
[2016-11-16 10:58] LABS: ANISOCYTOSIS 3+; POLYCHROMASIA 2+
[2016-11-16 11:00] LABS: HOWELL-JOLLY BODIES OCCASIONAL
[2016-11-16] MEDS: SOD FERRIC GLUC COMPLX 125 MG in SOD CHLORIDE 0.9% 100 ML IVPB SCH (11:29)
[2016-11-16 14:17] LABS: ANA SCREEN POSITIVE (NEGATIVE)
--- NOTE | 2016-11-16 16:00 | CONS ---
Date/Time of Note Date/Time of Note DATE: 11/16/16 TIME: 15:57 Assessment/Plan Assessment/Plan Chief Complaint/Hosp Course 31 yo female with severe macrocytic anemia in the setting of increased nucleated RBCs, and blasts in the periphery. Bone Marrow bx in the past did now show hematologic malignancy but suggested Vitamin b12 deficiency. Unfortunately even with 3 months of Vitamin b12 supplementation patient's Hg continues to drop. 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 -cont Prednisone 1 mg/kg q day with rise in WBC count, continue Bactrim ppx -cont IV iron -Epogen increased to 20,000 units weekly as patient refused blood transfusion -MIRIAN positive with 1:80 titer. Concern for underlying LUPUS, patient should see rheumatology once Hemoglobin has improved. -cont folate 2 mg q day given severe hemolysis -check daily H/H in pediatric tubes. Will limit lab checks as much as possible. Hemoglobin currently stable at 4.4. -status post BMBx on 11/13/16 COMMENT: Preliminary findings are discussed with Dr. Bhumika Pak on 11/13/2016 and the final diagnosis with Dr. Pak on 11/15/16. Based on the significant degree of dyserythropoiesis both in the bone marrow and peripheral blood, the findings are very suggestive of myelodysplastic syndrome, unclassified. In addition, the severe anemia, coupled with the presence of occasional spherocytes in the peripheral blood, markedly elevated LDH and positive RAZA are consistent with immune hemolytic anemia. Autoimmune hemolytic anemia has been reported in cases of MDS. This case is being forwarded to Danyel Hill M.D., Hematopathologist, [facility] for a second opinion and a supplemental report reflecting Dr. Hill opinion will follow. Additionally, cytogenetics and myeloid next generation sequencing is in progress on the peripheral blood and reports of those results will follow. Problems: Consultation Date/Type/Reason Admit Date/Time Nov 12, 2016 at 20:18 Initial Consult Date 11/13/16 Type of Consultation: Hematology Referring Provider: ARGENIS MCKENNA MD 24 HR Interval Summary Free Text/Dictation Patient feels relatively "ok" and able to ambulate to the bathroom. Exam/Review of Systems Vital Signs Vitals Vital Signs Date Time Temp Pulse Resp B/P Pulse Ox O2 Delivery O2 Flow Rate FiO2 11/16/16 12:15 103 11/16/16 11:40 98.1 19 116/56 96 11/15/16 00:42 Room Air 11/13/16 12:00 2.0 Intake and Output 11/15/16 11/15/16 11/16/16 15:00 23:00 07:00 Intake Total 960 ml 800 ml Balance 960 ml 800 ml Exam Constitutional: alert, oriented Head: atraumatic, normocephalic Eyes: nl conjunctiva ENMT: nl external ears & nose Neck: non-tender, supple Respiratory: clear to auscultation, normal air movement Cardiovascular: regular rate and rhythm Gastrointestinal: soft Musculoskeletal: nl extremities to inspection, nl gait and stance Extremities: normal pulses Results Result Diagram: 11/16/1662411/16/16624 Results 24 hrs Laboratory Tests Test 11/16/16 06:25 White Blood Count 74.5 #H Red Blood Count 1.05 L Hemoglobin 4.4 *L Hematocrit 14.1 L Mean Corpuscular Volume 134.3 H Mean Corpuscular Hemoglobin 41.9 H Mean Corpuscular Hemoglobin Concent 31.2 L Red Cell Distribution Width 28.2 H Platelet Count 108 L Mean Platelet Volume 10.7 H Neutrophils % 49.0 Band Neutrophils % 8.0 H Lymphocytes % 26.0 Monocytes % 6.0 Eosinophils % Basophils % 1.0 Metamyelocytes % 3.0 H Myelocytes % 4.0 H Promyelocytes % 1.0 H Blast Cells % 2.0 H Nucleated Red Blood Cells % 218.0 H Neutrophils # 36.5 H Lymphocytes # 19.4 H Monocytes # 4.5 H Eosinophils # Basophils # 0.7 H Metamyelocytes # 2.2 Myelocytes # 3.0 Promyelocytes # 0.7 Blastocytes # 1.5 Nucleated Red Blood Cells # Polychromasia 2+ Anisocytosis 3+ Kim-[place]y Bodies OCCASIONAL Sodium Level 142 Potassium Level 3.7 Chloride Level 107 Carbon Dioxide Level 25 Anion Gap 14 Blood Urea Nitrogen 22 H Creatinine 0.69 Glucose Level 85 Calcium Level 8.9 Medications Medications Current Medications Acetaminophen (Tylenol Tab) 650 mg Q6H PRN PO PAIN AND OR ELEVATED TEMP Last administered on 11/13/16t 13:39; Admin Dose 650 MG; Start 11/12/16 at 23:30 Zolpidem Tartrate 5 mg 5 mg HS PRN PO INSOMNIA; Start 11/12/16 at 23:30 Azithromycin (Zithromax 500mg/ NS (Pmx)) 250 ml @ 250 mls/hr Q24H IVPB Last administered on 11/16/16 08:56; Admin Dose 250 MLS/HR; Start 11/13/16 at 09:00 ; Stop 11/17/16 at 09:59 Ferrous Sulfate 325 mg 325 mg BID PO ; Start 11/18/16 at 09:00 Ferric Sodium Gluconate Complex/ Sodium Chloride (Ferrlecit/NS) 110 ml @ 110 mls/hr Q24H IVPB Last administered on 11/16/16 11:29; Admin Dose 110 MLS/HR; Start 11/13/16 at 12:00; Stop 11/17/16 at 12:59 Ibuprofen (Motrin) 600 mg Q6H PRN PO PAIN Last administered on 11/16/16 07:50 ; Admin Dose 600 MG; Start 11/13/16 at 20:00 Prednisone (Prednisone) 60 mg DAILY PO Last administered on 11/16/16 07:51; Admin Dose 60 MG; Start 11/14/16 at 16:00 Ascorbic Acid (Vitamin C) 500 mg DAILY PO Last administered on 11/16/16 07:50 ; Admin Dose 500 MG; Start 11/15/16 at 09:00 Folic Acid (Folic Acid) 2 mg DAILY PO Last administered on 11/16/16 07:51; Admin Dose 2 MG; Start 11/15/16 at 09:00 Trimethoprim/ Sulfamethoxazole (Bactrim (Ds)) 1 tab TuThSa@09 PO Last administered on 11/16/16 07:50; Admin Dose 1 TAB; Start 11/14/16 at 15:45 TOEVANGELINA MD Nov 16, 2016 16:00
--- NOTE | 2016-11-16 16:06 | PN ---
Date/Time of Note Date/Time of Note DATE: 11/16/16 TIME: 15:57 Assessment/Plan VTE Prophylaxis VTE Prophylaxis Intervention: other Lines/Catheters [facility]ter Type (from [facility] Peripheral IV Urinary Cath still in place: No Assessment/Plan Assessment/Plan 1. Symptomatic anemia- feels better today - per Dr. Pak in hematology/oncology consultation. - IV iron and Epogen. - Yarsanism and cannot get a blood transfusion - Continue to monitor patient closely while in house. 2. Thrombocytopenia and leukocytosis - SP biopsy . Case management asked to arrange to transfer to tertiary care facility for further care and management. . Further recommendations based on clinical course. Plan of care discussed with Dr. Will. Subjective 24 Hr Interval Summary Free Text/Dictation NAD,feels better, refuses blood transfusion. dw staff. Constitutional: improved Eyes: no complaints Exam/Review of Systems Vital Signs Vitals Vital Signs Date Time Temp Pulse Resp B/P Pulse Ox O2 Delivery O2 Flow Rate FiO2 11/16/16 12:15 103 11/16/16 11:40 98.1 19 116/56 96 11/15/16 00:42 Room Air 11/13/16 12:00 2.0 Intake and Output 11/15/16 11/15/16 11/16/16 15:00 23:00 07:00 Intake Total 960 ml 800 ml Balance 960 ml 800 ml Exam Constitutional: alert, oriented, well developed Psych: nl mood/affect Head: atraumatic Eyes: EOMI, nl conjunctiva ENMT: nl external ears & nose Neck: non-tender Respiratory: clear to auscultation Cardiovascular: nl pulses Gastrointestinal: non-tender, soft Musculoskeletal: nl extremities to inspection Extremities: normal pulses Neurological: nl mental status, nl speech Skin: nl turgor Lymph: nontender Results Result Diagram: 11/16/16 0625 11/16/16 0625 Results 24 hrs Laboratory Tests Test 11/16/16 06:25 White Blood Count 74.5 #H Red Blood Count 1.05 L Hemoglobin 4.4 *L Hematocrit 14.1 L Mean Corpuscular Volume 134.3 H Mean Corpuscular Hemoglobin 41.9 H Mean Corpuscular Hemoglobin Concent 31.2 L Red Cell Distribution Width 28.2 H Platelet Count 108 L Mean Platelet Volume 10.7 H Neutrophils % 49.0 Band Neutrophils % 8.0 H Lymphocytes % 26.0 Monocytes % 6.0 Eosinophils % Basophils % 1.0 Metamyelocytes % 3.0 H Myelocytes % 4.0 H Promyelocytes % 1.0 H Blast Cells % 2.0 H Nucleated Red Blood Cells % 218.0 H Neutrophils # 36.5 H Lymphocytes # 19.4 H Monocytes # 4.5 H Eosinophils # Basophils # 0.7 H Metamyelocytes # 2.2 Myelocytes # 3.0 Promyelocytes # 0.7 Blastocytes # 1.5 Nucleated Red Blood Cells # Polychromasia 2+ Anisocytosis 3+ Kim-[place] Bodies OCCASIONAL Sodium Level 142 Potassium Level 3.7 Chloride Level 107 Carbon Dioxide Level 25 Anion Gap 14 Blood Urea Nitrogen 22 H Creatinine 0.69 Glucose Level 85 Calcium Level 8.9 Medications Medications Current Medications Acetaminophen (Tylenol Tab) 650 mg Q6H PRN PO PAIN AND OR ELEVATED TEMP Last administered on 11/13/16 13:39; Admin Dose 650 MG; Start 11/12/16 at 23:30 Zolpidem Tartrate 5 mg 5 mg HS PRN PO INSOMNIA; Start 11/12/16 at 23:30 Azithromycin (Zithromax 500mg/ NS (Pmx)) 250 ml @ 250 mls/hr Q24H IVPB Last administered on 11/16/16 08:56; Admin Dose 250 MLS/HR; Start 11/13/16 at 09:00 ; Stop 11/17/16 at 09:59 Ferrous Sulfate 325 mg 325 mg BID PO ; Start 11/18/16 at 09:00 Ferric Sodium Gluconate Complex/ Sodium Chloride (Ferrlecit/NS) 110 ml @ 110 mls/hr Q24H IVPB Last administered on 11/16/16 11:29; Admin Dose 110 MLS/HR; Start 11/13/16 at 12:00; Stop 11/17/16 at 12:59 Ibuprofen (Motrin) 600 mg Q6H PRN PO PAIN Last administered on 11/16/16 07:50 ; Admin Dose 600 MG; Start 11/13/16 at 20:00 Prednisone (Prednisone) 60 mg DAILY PO Last administered on 11/16/16 07:51; Admin Dose 60 MG; Start 11/14/16 at 16:00 Ascorbic Acid (Vitamin C) 500 mg DAILY PO Last administered on 11/16/16 07:50 ; Admin Dose 500 MG; Start 11/15/16 at 09:00 Folic Acid (Folic Acid) 2 mg DAILY PO Last administered on 11/16/16 07:51; Admin Dose 2 MG; Start 11/15/16 at 09:00 Trimethoprim/ Sulfamethoxazole (Bactrim (Ds)) 1 tab TuThSa@09 PO Last administered on 11/16/16 07:50; Admin Dose 1 TAB; Start 11/14/16 at 15:45 JORJE NICHOLAS Nov 16, 2016 16:06
[2016-11-17] VITALS (12 sets, daily range): BP systolic 104–135; BP diastolic 51–70; PULSE 90–109; RESP 16–20
[2016-11-17] MEDS: ALBUTEROL 18 GM INHALER INH SCH ×6 (01:00→21:39)
[2016-11-17] MEDS: IBUPROFEN 600 MG TAB PO PRN (07:27)
[2016-11-17 07:53] LABS: ADD SCAN DIFF NO
[2016-11-17 08:01] LABS: ABNORMAL IP MESSAGE 1; MEAN CORPUSCULAR HEMOGLOBIN 41.1 pg (29.0-33.0); MEAN CORPUSCULAR HGB CONC 30.7 g/dl (32.0-37.0); MEAN CORPUSCULAR VOLUME 133.9 fl (82.0-101.0); MEAN PLATELET VOLUME 11.1 fl (7.4-10.4); PLATELET COUNT 112 10^3/UL (140-415); RED BLOOD COUNT 1.12 10^6/ul (4.20-5.40); RED CELL DISTRIBUTION WIDTH 28.3 % (11.5-14.5)
[2016-11-17 08:08] LABS: HEMOGLOBIN 4.6 g/dl (12.0-16.0)
[2016-11-17 08:11] LABS: CREATININE 0.62 mg/dl (0.44-1.00); POTASSIUM 3.7 mmol/L (3.5-5.1)
[2016-11-17] MEDS: AZITHROMYCIN 500MG/NS (PMX) 250 ML IVPB SCH (08:44)
[2016-11-17] MEDS: FOLIC ACID 1 MG TAB PO SCH (08:44)
[2016-11-17] MEDS: predniSONE 20 MG TAB PO SCH (08:45)
[2016-11-17] MEDS: ASCORBIC ACID 500 MG TAB PO SCH (08:45)
[2016-11-17 10:32] LABS: LYMPHOCYTES # 14.1 10^3/ul (0.8-2.9); MONOCYTE # 8.3 10^3/ul (0.3-0.9); NEUTROPHIL # 45.8 10^3/ul (1.6-7.5)
[2016-11-17 10:39] LABS: ANISOCYTOSIS MANY; POIKILOCYTOSIS FEW; POLYCHROMASIA MANY; SPHEROCYTES FEW; STOMATOCYTES FEW
[2016-11-17 10:40] LABS: PLATELET ESTIMATE PLT APPEAR DECREASED; TEAR DROP CELLS FEW
[2016-11-17 10:45] LABS: WHITE BLOOD COUNT 20.3 10^3/ul (4.8-10.8)
[2016-11-17 10:49] LABS: WHITE BLOOD COUNT 23.4 10^3/ul (4.8-10.8)
[2016-11-17] MEDS: SOD FERRIC GLUC COMPLX 125 MG in SOD CHLORIDE 0.9% 100 ML IVPB SCH (12:48)
--- NOTE | 2016-11-17 13:54 | CONS ---
Date/Time of Note Date/Time of Note DATE: 11/17/16 TIME: 13:54 Assessment/Plan Assessment/Plan Chief Complaint/Hosp Course 31 yo female with severe macrocytic anemia in the setting of increased nucleated RBCs, and blasts in the periphery. Bone Marrow bx in the past did now show hematologic malignancy but suggested Vitamin b12 deficiency. Unfortunately even with 3 months of Vitamin b12 supplementation patient's Hg continues to drop. 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 -cont Prednisone 1 mg/kg q day, continue Bactrim ppx. Hgb currently 4.6, up from 4.4 yesterday. -cont IV iron -Epogen increased to 20,000 units weekly as patient refused blood transfusion -MIRIAN positive with 1:80 titer. Concern for underlying LUPUS, patient should see rheumatology once Hemoglobin has improved. -cont folate 2 mg q day given severe hemolysis -check daily H/H in pediatric tubes. Will limit lab checks as much as possible. -status post BMBx on 11/13/16 COMMENT: Preliminary findings are discussed with Dr. Bhumika Pak on 11/13/2016 and the final diagnosis with Dr. Pak on 11/15/16. Based on the significant degree of dyserythropoiesis both in the bone marrow and peripheral blood, the findings are very suggestive of myelodysplastic syndrome, unclassified. In addition, the severe anemia, coupled with the presence of occasional spherocytes in the peripheral blood, markedly elevated LDH and positive RAZA are consistent with immune hemolytic anemia. Autoimmune hemolytic anemia has been reported in cases of MDS. This case is being forwarded to Danyel Hill M.D., Hematopathologist, [facility] for a second opinion and a supplemental report reflecting Dr. Hill opinion will follow. Additionally, cytogenetics and myeloid next generation sequencing is in progress on the peripheral blood and reports of those results will follow. Problems: Consultation Date/Type/Reason Admit Date/Time Nov 12, 2016 at 20:18 Initial Consult Date 11/13/16 Type of Consultation: Hematology Referring Provider: ARGENIS MCKENNA MD 24 HR Interval Summary Free Text/Dictation Patient feeling well, no bleeding. Able to ambulate and get up to chair without dyspnea. Exam/Review of Systems Vital Signs Vitals Vital Signs Date Time Temp Pulse Resp B/P Pulse Ox O2 Delivery O2 Flow Rate FiO2 11/17/16 12:14 104 11/17/16 11:07 98.9 20 135/63 100 Room Air 11/13/16 12:00 2.0 Intake and Output 11/16/16 11/16/16 11/17/16 15:00 23:00 07:00 Intake Total 800 ml 800 ml Balance 800 ml 800 ml Exam Constitutional: alert, oriented Head: atraumatic, normocephalic Eyes: nl conjunctiva ENMT: nl external ears & nose Neck: non-tender, supple Respiratory: clear to auscultation, normal air movement Cardiovascular: regular rate and rhythm Gastrointestinal: soft Musculoskeletal: nl extremities to inspection, nl gait and stance Extremities: normal pulses Results Result Diagram: 11/17/16 0605 11/17/16 0605 Results 24 hrs Laboratory Tests Test 11/17/16 06:05 White Blood Count 20.3 H Red Blood Count 1.12 L Hemoglobin 4.6 *L Hematocrit 15.0 L Mean Corpuscular Volume 133.9 H Mean Corpuscular Hemoglobin 41.1 H Mean Corpuscular Hemoglobin Concent 30.7 L Red Cell Distribution Width 28.3 H Platelet Count 112 L Mean Platelet Volume 11.1 H Neutrophils % 55.0 Band Neutrophils % 3.0 Lymphocytes % 17.0 Reactive Lymphocytes % 1.0 Monocytes % 10.0 Eosinophils % Basophils % Metamyelocytes % 1.0 H Myelocytes % 6.0 H Promyelocytes % 4.0 H Blast Cells % 3.0 H Nucleated Red Blood Cells % 310.0 H Neutrophils # 45.8 H Lymphocytes # 14.1 H Monocytes # 8.3 H Eosinophils # Basophils # Metamyelocytes # 0.8 Myelocytes # 5.0 Promyelocytes # 3.3 Blastocytes # 2.5 Platelet Estimate PLT APPEAR DECREASED Large Platelets FEW Polychromasia MANY Poikilocytosis FEW Anisocytosis MANY Spherocytes FEW Tear Drop Cells FEW Stomatocytes FEW Sodium Level 139 Potassium Level 3.7 Chloride Level 109 Carbon Dioxide Level 26 Anion Gap 8 Blood Urea Nitrogen 17 Creatinine 0.62 Glucose Level 86 Calcium Level 9.0 Medications Medications Current Medications Acetaminophen (Tylenol Tab) 650 mg Q6H PRN PO PAIN AND OR ELEVATED TEMP Last administered on 11/13/16t 13:39; Admin Dose 650 MG; Start 11/12/16 at 23:30 Zolpidem Tartrate (Ambien) 5 mg HS PRN PO INSOMNIA; Start 11/12/16 at 23:30 Ferrous Sulfate (Ferrous Sulfate (Ec)) 325 mg BID PO ; Start 11/18/16 at 09:00 Ibuprofen (Motrin) 600 mg Q6H PRN PO PAIN Last administered on 11/17/16 07:27 ; Admin Dose 600 MG; Start 11/13/16 at 20:00 Prednisone (Prednisone) 60 mg DAILY PO Last administered on 11/17/16 08:45; Admin Dose 60 MG; Start 11/14/16 at 16:00 Ascorbic Acid (Vitamin C) 500 mg DAILY PO Last administered on 11/17/16 08:45 ; Admin Dose 500 MG; Start 11/15/16 at 09:00 Folic Acid (Folic Acid) 2 mg DAILY PO Last administered on 11/17/16 08:44; Admin Dose 2 MG; Start 11/15/16 at 09:00 Trimethoprim/ Sulfamethoxazole (Bactrim (Ds)) 1 tab TuThSa@09 PO Last administered on 11/16/16 07:50; Admin Dose 1 TAB; Start 11/14/16 at 15:45 EVANGELINA ACE MD Nov 17, 2016 13:54
--- NOTE | 2016-11-17 15:59 | PN ---
Date/Time of Note Date/Time of Note DATE: 11/17/16 TIME: 15:57 Assessment/Plan VTE Prophylaxis VTE Prophylaxis Intervention: other Lines/Catheters IV [facility] Type (from [facility]): Peripheral IV Urinary Cath still in place: No Assessment/Plan Assessment/Plan 1. Symptomatic anemia- feels better today - per Dr. Pak in hematology/oncology consultation. - IV iron and Epogen. - Restorationist and cannot get a blood transfusion - Continue to monitor patient closely while in house. 2. Thrombocytopenia and leukocytosis - SP biopsy . Patient is concerned about her hospital stay, financial status we will get the school social worker consult as well Case management asked to arrange to transfer to tertiary care facility for further care and management. . Further recommendations based on clinical course. Plan of care discussed with Dr. Will. Subjective 24 Hr Interval Summary Eyes: no complaints ENT: no complaints Respiratory: no complaints Cardiovascular: no complaints Gastrointestinal: no complaints Genitourinary: no complaints Musculoskeletal: no complaints Skin: no complaints Neurologic: no complaints Endocrine: no complaints Lymphatic: no complaints Exam/Review of Systems Vital Signs Vitals Vital Signs Date Time Temp Pulse Resp B/P Pulse Ox O2 Delivery O2 Flow Rate FiO2 11/17/16 15:27 98.1 79 19 108/68 98 11/17/16 11:07 Room Air 11/13/16 12:00 2.0 Intake and Output 11/16/16 11/16/16 11/17/16 15:00 23:00 07:00 Intake Total 800 ml 800 ml Balance 800 ml 800 ml Exam Constitutional: alert, oriented, well developed Psych: no complaints Eyes: EOMI ENMT: nl external ears & nose Neck: non-tender Respiratory: clear to auscultation Cardiovascular: nl pulses Gastrointestinal: non-tender, soft Musculoskeletal: nl extremities to inspection Extremities: normal pulses Neurological: nl mental status, nl speech Skin: nl turgor Lymph: nontender Results Result Diagram: 11/17/16 0611/17/16 0605 Results 24 hrs Laboratory Tests Test 11/17/16 06:05 White Blood Count 20.3 H Red Blood Count 1.12 L Hemoglobin 4.6 *L Hematocrit 15.0 L Mean Corpuscular Volume 133.9 H Mean Corpuscular Hemoglobin 41.1 H Mean Corpuscular Hemoglobin Concent 30.7 L Red Cell Distribution Width 28.3 H Platelet Count 112 L Mean Platelet Volume 11.1 H Neutrophils % 55.0 Band Neutrophils % 3.0 Lymphocytes % 17.0 Reactive Lymphocytes % 1.0 Monocytes % 10.0 Eosinophils % Basophils % Metamyelocytes % 1.0 H Myelocytes % 6.0 H Promyelocytes % 4.0 H Blast Cells % 3.0 H Nucleated Red Blood Cells % 310.0 H Neutrophils # 45.8 H Lymphocytes # 14.1 H Monocytes # 8.3 H Eosinophils # Basophils # Metamyelocytes # 0.8 Myelocytes # 5.0 Promyelocytes # 3.3 Blastocytes # 2.5 Platelet Estimate PLT APPEAR DECREASED Large Platelets FEW Polychromasia MANY Poikilocytosis FEW Anisocytosis MANY Spherocytes FEW Tear Drop Cells FEW Stomatocytes FEW Sodium Level 139 Potassium Level 3.7 Chloride Level 109 Carbon Dioxide Level 26 Anion Gap 8 Blood Urea Nitrogen 17 Creatinine 0.62 Glucose Level 86 Calcium Level 9.0 Medications Medications Current Medications Acetaminophen (Tylenol Tab) 650 mg Q6H PRN PO PAIN AND OR ELEVATED TEMP Last administered on 11/13/16 13:39; Admin Dose 650 MG; Start 11/12/16 at 23:30 Zolpidem Tartrate (Ambien) 5 mg HS PRN PO INSOMNIA; Start 11/12/16 at 23:30 Ferrous Sulfate (Ferrous Sulfate (Ec)) 325 mg BID PO ; Start 11/18/16 at 09:00 Ibuprofen (Motrin) 600 mg Q6H PRN PO PAIN Last administered on 11/17/16 07:27 ; Admin Dose 600 MG; Start 11/13/16 at 20:00 Prednisone (Prednisone) 60 mg DAILY PO Last administered on 11/17/16 08:45; Admin Dose 60 MG; Start 11/14/16 at 16:00 Ascorbic Acid (Vitamin C) 500 mg DAILY PO Last administered on 11/17/16 08:45 ; Admin Dose 500 MG; Start 11/15/16 at 09:00 Folic Acid (Folic Acid) 2 mg DAILY PO Last administered on 11/17/16 08:44; Admin Dose 2 MG; Start 11/15/16 at 09:00 Trimethoprim/ Sulfamethoxazole (Bactrim (Ds)) 1 tab TuThSa@09 PO Last administered on 11/16/16 07:50; Admin Dose 1 TAB; Start 11/14/16 at 15:45 JORJE NICHOLAS Nov 17, 2016 15:59
[2016-11-18] VITALS (11 sets, daily range): BP systolic 99–117; BP diastolic 53–65; PULSE 88–100; RESP 17–20
[2016-11-18] MEDS: ALBUTEROL 18 GM INHALER INH SCH ×6 (01:32→20:20)
[2016-11-18 07:39] LABS: ADD SCAN DIFF NO
[2016-11-18 07:46] LABS: ABNORMAL IP MESSAGE 1; HEMATOCRIT 15.1 % (37.0-47.0); MEAN CORPUSCULAR HEMOGLOBIN 42.1 pg (29.0-33.0); MEAN CORPUSCULAR HGB CONC 31.8 g/dl (32.0-37.0); MEAN CORPUSCULAR VOLUME 132.5 fl (82.0-101.0); MEAN PLATELET VOLUME 10.9 fl (7.4-10.4); PLATELET COUNT 112 10^3/UL (140-415); RED BLOOD COUNT 1.14 10^6/ul (4.20-5.40)
[2016-11-18 07:55] LABS: POTASSIUM 3.4 mmol/L (3.5-5.1)
[2016-11-18 07:58] LABS: CREATININE 0.59 mg/dl (0.44-1.00); HEMOGLOBIN 4.8 g/dl (12.0-16.0)
[2016-11-18 07:59] LABS: CALCIUM 8.9 mg/dl (8.4-10.2)
[2016-11-18] MEDS: predniSONE 20 MG TAB PO SCH (09:03)
[2016-11-18] MEDS: FERROUS SULFATE (EC) 325 MG TAB PO SCH ×2 (09:03→20:20)
[2016-11-18] MEDS: ASCORBIC ACID 500 MG TAB PO SCH (09:03)
[2016-11-18] MEDS: FOLIC ACID 1 MG TAB PO SCH (09:03)
[2016-11-18 12:52] LABS: BASOPHIL # 1.7 10^3/ul (0.0-0.1); LYMPHOCYTES # 16.9 10^3/ul (0.8-2.9); MONOCYTE # 5.1 10^3/ul (0.3-0.9); MYELOCYTES # 3.4; NEUTROPHIL # 46.5 10^3/ul (1.6-7.5)
[2016-11-18 12:54] LABS: WHITE BLOOD COUNT 24.4 10^3/ul (4.8-10.8)
--- NOTE | 2016-11-18 14:00 | CONS ---
Date/Time of Note Date/Time of Note DATE: 11/18/16 TIME: 13:59 Assessment/Plan Assessment/Plan Chief Complaint/Hosp Course 31 yo female with severe macrocytic anemia in the setting of increased nucleated RBCs, and blasts in the periphery. Bone Marrow bx in the past did now show hematologic malignancy but suggested Vitamin b12 deficiency. Unfortunately even with 3 months of Vitamin b12 supplementation patient's Hg continues to drop. 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 31 yo female with severe macrocytic anemia in the setting of increased nucleated RBCs, and blasts in the periphery. Bone Marrow bx in the past did now show hematologic malignancy but suggested Vitamin b12 deficiency. Unfortunately even with 3 months of Vitamin b12 supplementation patient's Hg continues to drop. 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 -cont Prednisone 1 mg/kg q day, continue Bactrim ppx. Hgb currently 4.8,up form yesterday -cont IV iron -Epogen increased to 20,000 units weekly as patient refused blood transfusion -MIRIAN positive with 1:80 titer. Concern for underlying LUPUS, patient should see rheumatology once Hemoglobin has improved. -cont folate 2 mg q day given severe hemolysis -check daily H/H in pediatric tubes. Will limit lab checks as much as possible. -status post BMBx on 11/13/16. need to follow up Bone marrow review by [facility] hematopathologist COMMENT: Preliminary findings are discussed with Dr. Pamela Bender on 11/13/2016 and the final diagnosis with Dr. Bender on 11/15/16. Based on the significant degree of dyserythropoiesis both in the bone marrow and peripheral blood, the findings are very suggestive of myelodysplastic syndrome, unclassified. In addition, the severe anemia, coupled with the presence of occasional spherocytes in the peripheral blood, markedly elevated LDH and positive RAZA are consistent with immune hemolytic anemia. Autoimmune hemolytic anemia has been reported in cases of MDS. This case is being forwarded to Danyel Hill M.D., Hematopathologist, [facility] for a second opinion and a supplemental report reflecting Dr. Hill opinion will follow. Additionally, cytogenetics and myeloid next generation sequencing is in progress on the peripheral blood and reports of those results will follow. Problems: Consultation Date/Type/Reason Admit Date/Time Nov 12, 2016 at 20:18 Initial Consult Date 11/13/16 Type of Consultation: Hematology Reason for Consultation autoimmune hemolytic anemia Referring Provider: ARGENIS MCKENNA MD 24 HR Interval Summary Free Text/Dictation patient states she feels well. Hg continues to slowly rise Exam/Review of Systems Vital Signs Vitals Vital Signs Date Time Temp Pulse Resp B/P Pulse Ox O2 Delivery O2 Flow Rate FiO2 11/18/16 12:00 94 11/18/16 11:14 98.1 20 117/65 98 11/17/16 11:07 Room Air Intake and Output 11/17/16 11/17/16 11/18/16 15:00 23:00 07:00 Intake Total 960 ml 600 ml Balance 960 ml 600 ml Exam Constitutional: alert, oriented, other (pale) Psych: no complaints Head: atraumatic, normocephalic Eyes: nl conjunctiva ENMT: nl external ears & nose Neck: non-tender, supple Respiratory: clear to auscultation Cardiovascular: regular rate and rhythm Gastrointestinal: soft Genitourinary - Female: nl adnexae Musculoskeletal: nl extremities to inspection Results Result Diagram: 11/18/16 0610 11/18/16 0610 Results 24 hrs Laboratory Tests Test 11/18/16 06:10 White Blood Count 24.4 #H Red Blood Count 1.14 L Hemoglobin 4.8 *L Hematocrit 15.1 L Mean Corpuscular Volume 132.5 H Mean Corpuscular Hemoglobin 42.1 H Mean Corpuscular Hemoglobin Concent 31.8 L Red Cell Distribution Width Platelet Count 112 L Mean Platelet Volume 10.9 H Neutrophils % 55.0 Band Neutrophils % 10.0 H Lymphocytes % 20.0 Monocytes % 6.0 Eosinophils % Basophils % 2.0 Metamyelocytes % 2.0 H Myelocytes % 4.0 H Promyelocytes % 1.0 H Nucleated Red Blood Cells % 246.0 H Neutrophils # 46.5 H Lymphocytes # 16.9 H Monocytes # 5.1 H Eosinophils # Basophils # 1.7 H Metamyelocytes # 1.7 Myelocytes # 3.4 Promyelocytes # 0.8 Sodium Level 141 Potassium Level 3.4 L Chloride Level 105 Carbon Dioxide Level 26 Anion Gap 13 Blood Urea Nitrogen 15 Creatinine 0.59 Glucose Level 82 Calcium Level 8.9 Medications Medications Current Medications Acetaminophen (Tylenol Tab) 650 mg Q6H PRN PO PAIN AND OR ELEVATED TEMP Last administered on 11/13/16 13:39; Admin Dose 650 MG; Start 11/12/16 at 23:30 Zolpidem Tartrate (Ambien) 5 mg HS PRN PO INSOMNIA; Start 11/12/16 at 23:30 Ferrous Sulfate (Ferrous Sulfate (Ec)) 325 mg BID PO Last administered on 09:03; Admin Dose 325 MG; Start 11/18/16 at 09:00 Ibuprofen (Motrin) 600 mg Q6H PRN PO PAIN Last administered on 11/17/16 07:27 ; Admin Dose 600 MG; Start 11/13/16 at 20:00 Prednisone (Prednisone) 60 mg DAILY PO Last administered on 11/18/16 09:03; Admin Dose 60 MG; Start 11/14/16 at 16:00 Ascorbic Acid (Vitamin C) 500 mg DAILY PO Last administered on 11/18/16 09:03 ; Admin Dose 500 MG; Start 11/15/16 at 09:00 Folic Acid (Folic Acid) 2 mg DAILY PO Last administered on 11/18/16 09:03; Admin Dose 2 MG; Start 11/15/16 at 09:00 Trimethoprim/ Sulfamethoxazole (Bactrim (Ds)) 1 tab TuThSa@09 PO Last administered on 11/16/16 07:50; Admin Dose 1 TAB; Start 11/14/16 at 15:45 PAMELA BENDER M.D. Nov 18, 2016 14:00
--- NOTE | 2016-11-18 18:29 | PN ---
Date/Time of Note Date/Time of Note DATE: 11/18/16 TIME: 18:28 Assessment/Plan VTE Prophylaxis VTE Prophylaxis Intervention: SCD's Lines/Catheters [facility] [place] Urinary Cath still in place: No Assessment/Plan Chief Complaint/Hosp Course ASSESSMENT AND PLAN: - Autoimmune hemolytic anemia. Status post bone marrow biopsy on 11/13. The patient is followed by Dr. Pak in hematology/oncology consultation. The patient is currently getting IV iron and Epogen, prednisone and Bactrim. The patient is a [place] and cannot get a blood transfusion. Continue to monitor patient closely while in house. - Thrombocytopenia and leukocytosis. Further recommendations based on clinical course. Plan of care discussed with Dr. Will. Problems: Subjective 24 Hr Interval Summary Free Text/Dictation Patient's complains of generalized weakness, denies dizziness did not denies shortness of breath. Exam/Review of Systems Vital Signs Vitals Vital Signs Date Time Temp Pulse Resp B/P Pulse Ox O2 Delivery O2 Flow Rate FiO2 11/18/16 16:00 96 11/18/16 15:08 98.6 20 104/64 97 11/17/16 11:07 Room Air Intake and Output 11/17/16 11/17/16 11/18/16 15:00 23:00 07:00 Intake Total 960 ml 600 ml Balance 960 ml 600 ml Exam PHYSICAL EXAMINATION: GENERAL: Well-developed, well-nourished female in no acute distress. HEENT: Head is atraumatic, normocephalic. Pupils equal, round, reactive to light and accommodation. Oral mucosa is pink and moist. NECK: Supple, no cervical lymphadenopathy, no thyromegaly. CHEST: Lungs clear bilaterally. There is no rhonchi, wheezes, or rales noted. CARDIOVASCULAR: Normal S1, S2. No murmurs, gallops, clicks, rubs noted. The patient is slightly tachycardic. ABDOMEN: Round, soft, nondistended, nontender. Bowel sounds present. There is no guarding, no rebound tenderness. EXTREMITIES: There is no edema, clubbing, cyanosis. Pulses equal bilaterally 2 +. SKIN: There is no rash, petechiae noted. NEUROLOGIC: The patient is awake, alert and oriented x4. Results Result Diagram: 11/18/16 0610 11/18/16 0610 Results 24 hrs Laboratory Tests Test 11/18/16 06:10 White Blood Count 24.4 #H Red Blood Count 1.14 L Hemoglobin 4.8 *L Hematocrit 15.1 L Mean Corpuscular Volume 132.5 H Mean Corpuscular Hemoglobin 42.1 H Mean Corpuscular Hemoglobin Concent 31.8 L Red Cell Distribution Width Platelet Count 112 L Mean Platelet Volume 10.9 H Neutrophils % 55.0 Band Neutrophils % 10.0 H Lymphocytes % 20.0 Monocytes % 6.0 Eosinophils % Basophils % 2.0 Metamyelocytes % 2.0 H Myelocytes % 4.0 H Promyelocytes % 1.0 H Nucleated Red Blood Cells % 246.0 H Neutrophils # 46.5 H Lymphocytes # 16.9 H Monocytes # 5.1 H Eosinophils # Basophils # 1.7 H Metamyelocytes # 1.7 Myelocytes # 3.4 Promyelocytes # 0.8 Sodium Level 141 Potassium Level 3.4 L Chloride Level 105 Carbon Dioxide Level 26 Anion Gap 13 Blood Urea Nitrogen 15 Creatinine 0.59 Glucose Level 82 Calcium Level 8.9 Medications Medications Current Medications Acetaminophen (Tylenol Tab) 650 mg Q6H PRN PO PAIN AND OR ELEVATED TEMP Last administered on 11/13/16 13:39; Admin Dose 650 MG; Start 11/12/16 at 23:30 Zolpidem Tartrate (Ambien) 5 mg HS PRN PO INSOMNIA; Start 11/12/16 at 23:30 Ferrous Sulfate (Ferrous Sulfate (Ec)) 325 mg BID PO Last administered on 09:03; Admin Dose 325 MG; Start 11/18/16 at 09:00 Ibuprofen (Motrin) 600 mg Q6H PRN PO PAIN Last administered on 11/17/16 07:27 ; Admin Dose 600 MG; Start 11/13/16 at 20:00 Prednisone (Prednisone) 60 mg DAILY PO Last administered on 11/18/16 09:03; Admin Dose 60 MG; Start 11/14/16 at 16:00 Ascorbic Acid (Vitamin C) 500 mg DAILY PO Last administered on 11/18/16 09:03 ; Admin Dose 500 MG; Start 11/15/16 at 09:00 Folic Acid (Folic Acid) 2 mg DAILY PO Last administered on 11/18/16 09:03; Admin Dose 2 MG; Start 11/15/16 at 09:00 Trimethoprim/ Sulfamethoxazole (Bactrim (Ds)) 1 tab TuThSa@09 PO Last administered on 11/16/16t 07:50; Admin Dose 1 TAB; Start 11/14/16 at 15:45 SMITH BUSTAMANTE Nov 18, 2016 18:29
[2016-11-18] MEDS ORDERED: POTASSIUM CHLORIDE 20 MEQ POWDER FOR ORAL SOLN PO ONE (18:30)
[2016-11-19] VITALS (13 sets, daily range): BP systolic 99–115; BP diastolic 55–69; PULSE 85–101; RESP 18–20
[2016-11-19] MEDS: ALBUTEROL 18 GM INHALER INH SCH ×6 (01:00→20:13)
[2016-11-19] MEDS: IBUPROFEN 600 MG TAB PO PRN (05:19)
[2016-11-19 08:12] LABS: ADD SCAN DIFF NO
[2016-11-19 08:34] LABS: ABNORMAL IP MESSAGE 1; HEMATOCRIT 15.9 % (37.0-47.0); MEAN CORPUSCULAR HEMOGLOBIN 42.4 pg (29.0-33.0); MEAN CORPUSCULAR HGB CONC 31.4 g/dl (32.0-37.0); MEAN CORPUSCULAR VOLUME 134.7 fl (82.0-101.0); MEAN PLATELET VOLUME 10.9 fl (7.4-10.4); PLATELET COUNT 112 10^3/UL (140-415); RED BLOOD COUNT 1.18 10^6/ul (4.20-5.40); RED CELL DISTRIBUTION WIDTH 29.2 % (11.5-14.5); WHITE BLOOD COUNT 22.2 10^3/ul (4.8-10.8)
[2016-11-19 08:44] LABS: POTASSIUM 3.8 mmol/L (3.5-5.1)
[2016-11-19 08:47] LABS: CALCIUM 8.9 mg/dl (8.4-10.2); CREATININE 0.6 mg/dl (0.44-1.00)
[2016-11-19] MEDS: predniSONE 20 MG TAB PO SCH (08:51)
[2016-11-19] MEDS: ASCORBIC ACID 500 MG TAB PO SCH (08:51)
[2016-11-19] MEDS: FOLIC ACID 1 MG TAB PO SCH (08:51)
[2016-11-19] MEDS: FERROUS SULFATE (EC) 325 MG TAB PO SCH ×2 (08:51→20:10)
--- NOTE | 2016-11-19 10:02 | CONS ---
Date/Time of Note Date/Time of Note DATE: 11/19/16 TIME: 09:59 Assessment/Plan Assessment/Plan Chief Complaint/Hosp Course 31 yo female now diagnosed with autoimmune hemolytic anemia. Bone Marrow as been reviewed by [facility] hematopathologist who sees no evidence of underlying bone marrow disorder. The LDH and low haptoglobin in addition to the bone marrow with eythropoetic hyperplasia, it is evident patient is hemolyzing like from autoimmune hemolytic anemia. -cont Prednisone 1 mg/kg q day, continue Bactrim ppx. Hgb currently 5.0,up form yesterday -cont IV iron as patient's bone marrow is actively trying to make Hemoglobin -Epogen increased to 20,000 units weekly as patient refused blood transfusion -MIRIAN positive with 1:80 titer. Concern for underlying LUPUS, patient should see rheumatology once Hemoglobin has improved. -cont folate 2 mg q day given severe hemolysis -check daily H/H in pediatric tubes. Will limit lab checks as much as possible. -status post BMBx on 11/13/16. need to follow up Bone marrow review by [facility] hematopathologist Problems: Consultation Date/Type/Reason Admit Date/Time Nov 12, 2016 at 20:18 Initial Consult Date 11/13/16 Type of Consultation: Hematology Reason for Consultation autoimmune hemolytic anemia Referring Provider: ARGENIS MCKENNA MD 24 HR Interval Summary Free Text/Dictation pt feels well. more energy Exam/Review of Systems Vital Signs Vitals Vital Signs Date Time Temp Pulse Resp B/P Pulse Ox O2 Delivery O2 Flow Rate FiO2 11/19/16 08:29 87 11/19/16 07:32 98.4 20 99/64 99 11/17/16 11:07 Room Air Intake and Output 11/18/16 11/18/16 11/19/16 15:00 23:00 07:00 Intake Total 960 ml 200 ml Balance 960 ml 200 ml Exam Constitutional: alert, oriented Psych: nl mood/affect, no complaints Head: normocephalic Eyes: nl conjunctiva ENMT: nl external ears & nose Neck: non-tender, supple Respiratory: clear to auscultation, normal air movement Cardiovascular: nl pulses, regular rate and rhythm Gastrointestinal: soft Musculoskeletal: nl extremities to inspection, nl gait and stance Extremities: normal pulses Results Result Diagram: 4/25/17 0724 4/25/17 0724 Results 24 hrs Laboratory Tests Test 11/19/16 07:24 White Blood Count 22.2 H Red Blood Count 1.18 L Hemoglobin 5.0 *L Hematocrit 15.9 L Mean Corpuscular Volume 134.7 H Mean Corpuscular Hemoglobin 42.4 H Mean Corpuscular Hemoglobin Concent 31.4 L Red Cell Distribution Width 29.2 H Platelet Count 112 L Mean Platelet Volume 10.9 H Neutrophils % Lymphocytes % Monocytes % Eosinophils % Neutrophils # Lymphocytes # Monocytes # Eosinophils # Nucleated Red Blood Cells # Sodium Level 142 Potassium Level 3.8 Chloride Level 104 Carbon Dioxide Level 28 Anion Gap 14 Blood Urea Nitrogen 19 Creatinine 0.60 Glucose Level 73 Calcium Level 8.9 Medications Medications Current Medications Acetaminophen (Tylenol Tab) 650 mg Q6H PRN PO PAIN AND OR ELEVATED TEMP Last administered on 11/13/16 13:39; Admin Dose 650 MG; Start 11/12/16 at 23:30 Zolpidem Tartrate (Ambien) 5 mg HS PRN PO INSOMNIA; Start 11/12/16 at 23:30 Ferrous Sulfate (Ferrous Sulfate (Ec)) 325 mg BID PO Last administered on 08:51; Admin Dose 325 MG; Start 11/18/16 at 09:00 Ibuprofen (Motrin) 600 mg Q6H PRN PO PAIN Last administered on 11/19/16 05:19 ; Admin Dose 600 MG; Start 11/13/16 at 20:00 Prednisone (Prednisone) 60 mg DAILY PO Last administered on 11/19/16 08:51; Admin Dose 60 MG; Start 11/14/16 at 16:00 Ascorbic Acid (Vitamin C) 500 mg DAILY PO Last administered on 11/19/16 08:51 ; Admin Dose 500 MG; Start 11/15/16 at 09:00 Folic Acid (Folic Acid) 2 mg DAILY PO Last administered on 11/19/16 08:51; Admin Dose 2 MG; Start 11/15/16 at 09:00 Trimethoprim/ Sulfamethoxazole (Bactrim (Ds)) 1 tab TuThSa@09 PO Last administered on 11/16/16 07:50; Admin Dose 1 TAB; Start 11/14/16 at 15:45 PAMELA BENDER M.D. Nov 19, 2016 10:02
[2016-11-19] MEDS: SOD FERRIC GLUC COMPLX 125 MG in SOD CHLORIDE 0.9% 100 ML IVPB SCH (12:58)
--- NOTE | 2016-11-19 14:06 | PN ---
Date/Time of Note Date/Time of Note DATE: 11/19/16 TIME: 14:05 Assessment/Plan VTE Prophylaxis VTE Prophylaxis Intervention: SCD's Lines/Catheters IV Catheter Type (from [facility]): Saline Lock Urinary Cath still in place: No Assessment/Plan Chief Complaint/Hosp Course ASSESSMENT AND PLAN: - Autoimmune hemolytic anemia. Status post bone marrow biopsy on 11/13. The patient is followed by Dr. Pak in hematology/oncology consultation. The patient is currently getting IV iron and Epogen, prednisone and Bactrim. The patient is a Gnosticism and cannot get a blood transfusion. Continue to monitor patient closely while in house. Continue to monitor H&H. - Thrombocytopenia and leukocytosis. Further recommendations based on clinical course. Plan of care discussed with Dr. Will. Problems: Subjective 24 Hr Interval Summary Free Text/Dictation Patient looks comfortable, no complaints. Exam/Review of Systems Vital Signs Vitals Vital Signs Date Time Temp Pulse Resp B/P Pulse Ox O2 Delivery O2 Flow Rate FiO2 11/19/16 12:44 92 11/19/16 11:15 98.9 20 106/59 99 11/17/16 11:07 Room Air Intake and Output 11/18/16 11/18/16 11/19/16 15:00 23:00 07:00 Intake Total 960 ml 200 ml Balance 960 ml 200 ml Exam PHYSICAL EXAMINATION: GENERAL: Well-developed, well-nourished female in no acute distress. HEENT: Head is atraumatic, normocephalic. Pupils equal, round, reactive to light and accommodation. Oral mucosa is pink and moist. NECK: Supple, no cervical lymphadenopathy, no thyromegaly. CHEST: Lungs clear bilaterally. There is no rhonchi, wheezes, or rales noted. CARDIOVASCULAR: Normal S1, S2. No murmurs, gallops, clicks, rubs noted. The patient is slightly tachycardic. ABDOMEN: Round, soft, nondistended, nontender. Bowel sounds present. There is no guarding, no rebound tenderness. EXTREMITIES: There is no edema, clubbing, cyanosis. Pulses equal bilaterally 2 +. SKIN: There is no rash, petechiae noted. NEUROLOGIC: The patient is awake, alert and oriented x4. Results Result Diagram: 4/25/17 0724 4/25/17 0724 Results 24 hrs Laboratory Tests Test 11/19/16 07:24 White Blood Count 22.2 H Red Blood Count 1.18 L Hemoglobin 5.0 *L Hematocrit 15.9 L Mean Corpuscular Volume 134.7 H Mean Corpuscular Hemoglobin 42.4 H Mean Corpuscular Hemoglobin Concent 31.4 L Red Cell Distribution Width 29.2 H Platelet Count 112 L Mean Platelet Volume 10.9 H Neutrophils % Lymphocytes % Monocytes % Eosinophils % Neutrophils # Lymphocytes # Monocytes # Eosinophils # Nucleated Red Blood Cells # Sodium Level 142 Potassium Level 3.8 Chloride Level 104 Carbon Dioxide Level 28 Anion Gap 14 Blood Urea Nitrogen 19 Creatinine 0.60 Glucose Level 73 Calcium Level 8.9 Medications Medications Current Medications Acetaminophen (Tylenol Tab) 650 mg Q6H PRN PO PAIN AND OR ELEVATED TEMP Last administered on 11/13/16 13:39; Admin Dose 650 MG; Start 11/12/16 at 23:30 Zolpidem Tartrate (Ambien) 5 mg HS PRN PO INSOMNIA; Start 11/12/16 at 23:30 Ferrous Sulfate (Ferrous Sulfate (Ec)) 325 mg BID PO Last administered on 08:51; Admin Dose 325 MG; Start 11/18/16 at 09:00 Ibuprofen (Motrin) 600 mg Q6H PRN PO PAIN Last administered on 11/19/16 05:19 ; Admin Dose 600 MG; Start 11/13/16 at 20:00 Prednisone (Prednisone) 60 mg DAILY PO Last administered on 11/19/16 08:51; Admin Dose 60 MG; Start 11/14/16 at 16:00 Ascorbic Acid (Vitamin C) 500 mg DAILY PO Last administered on 11/19/16 08:51 ; Admin Dose 500 MG; Start 11/15/16 at 09:00 Folic Acid (Folic Acid) 2 mg DAILY PO Last administered on 11/19/16 08:51; Admin Dose 2 MG; Start 11/15/16 at 09:00 Trimethoprim/ Sulfamethoxazole 1 tab 1 tab TuThSa@09 PO Last administered on 07:50; Admin Dose 1 TAB; Start 11/14/16 at 15:45 Ferric Sodium Gluconate Complex/ Sodium Chloride (Ferrlecit/NS) 110 ml @ 100 mls/hr Q24H IVPB Last administered on 11/19/16 12:58; Admin Dose 100 MLS/HR; Start 11/19/16 at 10:00; Stop 11/21/16 at 11:05 SMITH BUSTAMANTE Nov 19, 2016 14:06
[2016-11-19 14:09] LABS: BASOPHIL # 0.2 10^3/ul (0.0-0.1); EOSINOPHILS # 0.4 10^3/ul (0.0-0.5); MONOCYTE # 1.1 10^3/ul (0.3-0.9); MYELOCYTES # 0.4; NEUTROPHIL # 12.9 10^3/ul (1.6-7.5)
[2016-11-19] MEDS: TRIMETHOPRIM/SULFAMETHOX (DS) TAB PO SCH (14:19)
[2016-11-20] VITALS (12 sets, daily range): BP systolic 103–127; BP diastolic 60–75; PULSE 81–108; RESP 18–20
[2016-11-20] MEDS: ALBUTEROL 18 GM INHALER INH SCH ×6 (01:16→21:28)
[2016-11-20 07:52] LABS: HEMATOCRIT 17.2 % (37.0-47.0)
[2016-11-20 08:25] LABS: HEMOGLOBIN 5.3 g/dl (12.0-16.0)
[2016-11-20] MEDS: FERROUS SULFATE (EC) 325 MG TAB PO SCH ×2 (08:30→21:27)
[2016-11-20] MEDS: ASCORBIC ACID 500 MG TAB PO SCH (08:30)
[2016-11-20] MEDS: FOLIC ACID 1 MG TAB PO SCH (08:30)
[2016-11-20] MEDS: predniSONE 20 MG TAB PO SCH (08:31)
[2016-11-20] MEDS: IBUPROFEN 600 MG TAB PO PRN (08:36)
[2016-11-20] MEDS: SOD FERRIC GLUC COMPLX 125 MG in SOD CHLORIDE 0.9% 100 ML IVPB SCH (09:51)
--- NOTE | 2016-11-20 12:34 | CONS ---
Date/Time of Note Date/Time of Note DATE: 11/20/16 TIME: 12:33 Assessment/Plan Assessment/Plan Chief Complaint/Hosp Course 31 yo female now diagnosed with autoimmune hemolytic anemia. Bone Marrow as been reviewed by [facility] hematopathologist who sees no evidence of underlying bone marrow disorder. The LDH and low haptoglobin in addition to the bone marrow with erythropoietic hyperplasia, it is evident patient is hemolyzing like from autoimmune hemolytic anemia. -cont Prednisone 1 mg/kg q day, continue Bactrim ppx. Hgb currently 5.4,up form yesterday -cont IV iron as patient's bone marrow is actively trying to make Hemoglobin -Epogen increased to 20,000 units weekly as patient refused blood transfusion -MIRIAN positive with 1:80 titer. Concern for underlying LUPUS, patient should see rheumatology once Hemoglobin has improved. -cont folate 2 mg q day given severe hemolysis -check daily H/H in pediatric tubes. Will limit lab checks as much as possible. -status post BMBx on 11/13/16. need to follow up Bone marrow review by [facility] hematopathologist Problems: Consultation Date/Type/Reason Admit Date/Time Nov 12, 2016 at 20:18 Initial Consult Date 11/13/16 Type of Consultation: Hematology Reason for Consultation autoimmune hemolytic anemia Referring Provider: ARGENIS MCKENNA MD 24 HR Interval Summary Free Text/Dictation patient feels tired this morning but sx continue to improve Exam/Review of Systems Vital Signs Vitals Vital Signs Date Time Temp Pulse Resp B/P Pulse Ox O2 Delivery O2 Flow Rate FiO2 11/20/16 12:12 100 11/20/16 11:19 98.1 18 107/63 96 11/17/16 11:07 Room Air Intake and Output 11/19/16 11/19/16 11/20/16 15:00 23:00 07:00 Intake Total 960 ml 120 ml Balance 960 ml 120 ml Exam Constitutional: alert, oriented Psych: no complaints Head: atraumatic, normocephalic Eyes: nl conjunctiva ENMT: nl external ears & nose Neck: non-tender, supple Cardiovascular: regular rate and rhythm Gastrointestinal: soft Musculoskeletal: nl extremities to inspection, nl gait and stance Extremities: normal pulses Results Result Diagram: 11/20/16 0639 11/19/16 0724 Results 24 hrs Laboratory Tests Test 11/20/16 06:39 Hemoglobin 5.3 *L Hematocrit 17.2 L Medications Medications Current Medications Acetaminophen (Tylenol Tab) 650 mg Q6H PRN PO PAIN AND OR ELEVATED TEMP Last administered on 11/13/16 13:39; Admin Dose 650 MG; Start 11/12/16 at 23:30 Zolpidem Tartrate (Ambien) 5 mg HS PRN PO INSOMNIA; Start 11/12/16 at 23:30 Ferrous Sulfate (Ferrous Sulfate (Ec)) 325 mg BID PO Last administered on 08:30; Admin Dose 325 MG; Start 11/18/16 at 09:00 Ibuprofen (Motrin) 600 mg Q6H PRN PO PAIN Last administered on 11/20/16 08:36 ; Admin Dose 600 MG; Start 11/13/16 at 20:00 Prednisone (Prednisone) 60 mg DAILY PO Last administered on 11/20/16 08:31; Admin Dose 60 MG; Start 11/14/16 at 16:00 Ascorbic Acid (Vitamin C) 500 mg DAILY PO Last administered on 11/20/16 08:30 ; Admin Dose 500 MG; Start 11/15/16 at 09:00 Folic Acid (Folic Acid) 2 mg DAILY PO Last administered on 11/20/16 08:30; Admin Dose 2 MG; Start 11/15/16 at 09:00 Trimethoprim/ Sulfamethoxazole 1 tab 1 tab TuThSa@09 PO Last administered on 14:19; Admin Dose 1 TAB; Start 11/14/16 at 15:45 Ferric Sodium Gluconate Complex/ Sodium Chloride (Ferrlecit/NS) 110 ml @ 100 mls/hr Q24H IVPB Last administered on 11/20/16 09:51; Admin Dose 100 MLS/HR; Start 11/19/16 at 10:00; Stop 11/21/16 at 11:05 PAMELA BENDER M.D. Nov 20, 2016 12:34
--- NOTE | 2016-11-20 16:19 | PN ---
Date/Time of Note Date/Time of Note DATE: 11/20/16 TIME: 16:16 Assessment/Plan VTE Prophylaxis VTE Prophylaxis Intervention: SCD's Lines/Catheters IV Catheter Type (from [facility]): Saline Lock Urinary Cath still in place: No Assessment/Plan Chief Complaint/Hosp Course ASSESSMENT AND PLAN: - Autoimmune hemolytic anemia. Status post bone marrow biopsy on 11/13. The patient is followed by Dr. Pak in hematology/oncology consultation. The patient is currently getting IV iron and Epogen, prednisone and Bactrim. The patient is a Denominational and cannot get a blood transfusion. Continue to monitor patient closely while in house. Continue to monitor H&H. - Thrombocytopenia and leukocytosis. Case management asked to arrange for rheumatology consultation authorization. Further recommendations based on clinical course. Plan of care discussed with Dr. Will. Problems: Subjective 24 Hr Interval Summary Free Text/Dictation Patient's complains of generalized weakness, denies any fever denies nausea vomiting, hemoglobin is 5.3 today. Exam/Review of Systems Vital Signs Vitals Vital Signs Date Time Temp Pulse Resp B/P Pulse Ox O2 Delivery O2 Flow Rate FiO2 11/20/16 16:16 108 11/20/16 15:26 98.0 18 105/60 96 11/17/16 11:07 Room Air Intake and Output 11/19/16 11/19/16 11/20/16 15:00 23:00 07:00 Intake Total 960 ml 120 ml Balance 960 ml 120 ml Exam PHYSICAL EXAMINATION: GENERAL: Well-developed, well-nourished female in no acute distress. HEENT: Head is atraumatic, normocephalic. Pupils equal, round, reactive to light and accommodation. Oral mucosa is pink and moist. NECK: Supple, no cervical lymphadenopathy, no thyromegaly. CHEST: Lungs clear bilaterally. There is no rhonchi, wheezes, or rales noted. CARDIOVASCULAR: Normal S1, S2. No murmurs, gallops, clicks, rubs noted. The patient is slightly tachycardic. ABDOMEN: Round, soft, nondistended, nontender. Bowel sounds present. There is no guarding, no rebound tenderness. EXTREMITIES: There is no edema, clubbing, cyanosis. Pulses equal bilaterally 2 +. SKIN: There is no rash, petechiae noted. NEUROLOGIC: The patient is awake, alert and oriented x4. Results Result Diagram: 11/20/16 0639 11/19/16 0724 Results 24 hrs Laboratory Tests Test 11/20/16 06:39 Hemoglobin 5.3 *L Hematocrit 17.2 L Medications Medications Current Medications Acetaminophen (Tylenol Tab) 650 mg Q6H PRN PO PAIN AND OR ELEVATED TEMP Last administered on 11/13/16 13:39; Admin Dose 650 MG; Start 11/12/16 at 23:30 Zolpidem Tartrate (Ambien) 5 mg HS PRN PO INSOMNIA; Start 11/12/16 at 23:30 Ferrous Sulfate (Ferrous Sulfate (Ec)) 325 mg BID PO Last administered on 08:30; Admin Dose 325 MG; Start 11/18/16 at 09:00 Ibuprofen (Motrin) 600 mg Q6H PRN PO PAIN Last administered on 11/20/16 08:36 ; Admin Dose 600 MG; Start 11/13/16 at 20:00 Prednisone (Prednisone) 60 mg DAILY PO Last administered on 11/20/16 08:31; Admin Dose 60 MG; Start 11/14/16 at 16:00 Ascorbic Acid (Vitamin C) 500 mg DAILY PO Last administered on 11/20/16 08:30 ; Admin Dose 500 MG; Start 11/15/16 at 09:00 Folic Acid (Folic Acid) 2 mg DAILY PO Last administered on 11/20/16 08:30; Admin Dose 2 MG; Start 11/15/16 at 09:00 Trimethoprim/ Sulfamethoxazole 1 tab 1 tab TuThSa@09 PO Last administered on 14:19; Admin Dose 1 TAB; Start 11/14/16 at 15:45 Ferric Sodium Gluconate Complex/ Sodium Chloride (Ferrlecit/NS) 110 ml @ 100 mls/hr Q24H IVPB Last administered on 11/20/16 09:51; Admin Dose 100 MLS/HR; Start 11/19/16 at 10:00; Stop 11/21/16 at 11:05 SMITH BUSTAMANTE Nov 20, 2016 16:19
[2016-11-21] VITALS (9 sets, daily range): BP systolic 109–118; BP diastolic 59–71; PULSE 78–99; RESP 15–18
[2016-11-21] MEDS: ALBUTEROL 18 GM INHALER INH SCH ×6 (01:00→20:54)
[2016-11-21] MEDS: TRIMETHOPRIM/SULFAMETHOX (DS) TAB PO SCH (09:02)
[2016-11-21] MEDS: predniSONE 20 MG TAB PO SCH (09:03)
[2016-11-21] MEDS: FOLIC ACID 1 MG TAB PO SCH (09:03)
[2016-11-21] MEDS: ASCORBIC ACID 500 MG TAB PO SCH (09:03)
[2016-11-21] MEDS: FERROUS SULFATE (EC) 325 MG TAB PO SCH ×2 (09:03→20:54)
[2016-11-21] MEDS: IBUPROFEN 600 MG TAB PO PRN (09:09)
[2016-11-21] MEDS: SOD FERRIC GLUC COMPLX 125 MG in SOD CHLORIDE 0.9% 100 ML IVPB SCH (10:02)
--- NOTE | 2016-11-21 13:05 | CONS ---
Date/Time of Note Date/Time of Note DATE: 11/21/16 TIME: 13:03 Assessment/Plan Assessment/Plan Chief Complaint/Hosp Course 31 yo female now diagnosed with autoimmune hemolytic anemia. Bone Marrow as been reviewed by [facility] hematopathologist who sees no evidence of underlying bone marrow disorder. The LDH and low haptoglobin in addition to the bone marrow with erythropoietic hyperplasia, it is evident patient is hemolyzing like from autoimmune hemolytic anemia. -cont Prednisone 1 mg/kg q day, continue Bactrim ppx. Hgb continues to rise. now greater than 5 -cont IV iron as patient's bone marrow is actively trying to make Hemoglobin -Epogen increased to 20,000 units weekly as patient refused blood transfusion -MIRIAN positive with 1:80 titer. Concern for underlying LUPUS, patient should see rheumatology once Hemoglobin has improved. -cont folate 2 mg q day given severe hemolysis -check daily H/H in pediatric tubes. Will limit lab checks as much as possible. -status post BMBx on 11/13/16. need to follow up Bone marrow review by [facility] hematopathologist Problems: Consultation Date/Type/Reason Admit Date/Time Nov 12, 2016 at 20:18 Initial Consult Date 11/13/16 Type of Consultation: Hematology Reason for Consultation autoimmune hemolytic anemia Referring Provider: ARGENIS MCKENNA MD 24 HR Interval Summary Free Text/Dictation no acute overnight events. patient continues to feel well Exam/Review of Systems Vital Signs Vitals Vital Signs Date Time Temp Pulse Resp B/P Pulse Ox O2 Delivery O2 Flow Rate FiO2 11/21/16 12:14 99 11/21/16 08:13 98.0 18 110/71 98 11/17/16 11:07 Room Air Intake and Output 11/20/16 11/20/16 11/21/16 15:00 23:00 07:00 Intake Total 800 ml 250 ml Balance 800 ml 250 ml Exam Constitutional: alert, oriented Psych: no complaints Head: normocephalic Eyes: nl conjunctiva ENMT: nl external ears & nose Neck: non-tender, supple Respiratory: clear to auscultation Cardiovascular: nl pulses, regular rate and rhythm Gastrointestinal: soft Extremities: normal pulses Results Result Diagram: 11/20/16 0639 11/19/16 0724 Medications Medications Current Medications Acetaminophen (Tylenol Tab) 650 mg Q6H PRN PO PAIN AND OR ELEVATED TEMP Last administered on 11/13/16 13:39; Admin Dose 650 MG; Start 11/12/16 at 23:30 Zolpidem Tartrate (Ambien) 5 mg HS PRN PO INSOMNIA; Start 11/12/16 at 23:30 Ferrous Sulfate (Ferrous Sulfate (Ec)) 325 mg BID PO Last administered on 09:03; Admin Dose 325 MG; Start 11/18/16 at 09:00 Ibuprofen (Motrin) 600 mg Q6H PRN PO PAIN Last administered on 11/21/16 09:09 ; Admin Dose 600 MG; Start 11/13/16 at 20:00 Prednisone (Prednisone) 60 mg DAILY PO Last administered on 11/21/16 09:03; Admin Dose 60 MG; Start 11/14/16 at 16:00 Ascorbic Acid (Vitamin C) 500 mg DAILY PO Last administered on 11/21/16 09:03 ; Admin Dose 500 MG; Start 11/15/16 at 09:00 Folic Acid (Folic Acid) 2 mg DAILY PO Last administered on 11/21/16 09:03; Admin Dose 2 MG; Start 11/15/16 at 09:00 Trimethoprim/ Sulfamethoxazole (Bactrim (Ds)) 1 tab TuThSa@09 PO Last administered on 11/21/16 09:02; Admin Dose 1 TAB; Start 11/14/16 at 15:45 PAMELA BENDER M.D. Nov 21, 2016 13:05
--- NOTE | 2016-11-21 14:19 | PN ---
Date/Time of Note Date/Time of Note DATE: 11/21/16 TIME: 14:18 Assessment/Plan VTE Prophylaxis VTE Prophylaxis Intervention: other Lines/Catheters IV C[facility] Type ([facility] Peripheral IV Urinary Cath still in place: No Assessment/Plan Assessment/Plan - Autoimmune hemolytic anemia- patient is Jainism and cannot get a blood transfusion - per hematology - Status post bone marrow biopsy on 11/13. - on IV iron and Epogen, prednisone and Bactrim. - Continue to monitor H&H. - Thrombocytopenia and leukocytosis. - per hematology - leukocytosis possibly sec to steroid. - Case management asked to arrange for rheumatology consultation authorization. Further recommendations based on clinical course. Plan of care discussed with Dr. Will. Subjective 24 Hr Interval Summary Free Text/Dictation feels better, no acute event overnight reported. dw staff. Eyes: no complaints ENT: no complaints Respiratory: no complaints Cardiovascular: no complaints Gastrointestinal: no complaints Genitourinary: no complaints Musculoskeletal: no complaints Skin: no complaints Neurologic: no complaints Endocrine: no complaints Lymphatic: no complaints Psychological: no complaints Immunologic: no complaints Exam/Review of Systems Vital Signs Vitals Vital Signs Date Time Temp Pulse Resp B/P Pulse Ox O2 Delivery O2 Flow Rate FiO2 11/21/16 12:14 99 11/21/16 08:13 98.0 18 110/71 98 11/17/16 11:07 Room Air Intake and Output 11/20/16 11/20/16 11/21/16 15:00 23:00 07:00 Intake Total 800 ml 250 ml Balance 800 ml 250 ml Exam Constitutional: alert, oriented, well developed Psych: nl mood/affect Head: atraumatic Eyes: EOMI, nl lids Neck: non-tender Respiratory: clear to auscultation Cardiovascular: regular rate and rhythm Gastrointestinal: non-tender, soft Musculoskeletal: nl extremities to inspection Extremities: normal pulses Neurological: nl mental status, nl speech Skin: nl turgor Lymph: nontender Results Result Diagram: 11/20/16 0639 11/19/16 0724 Medications Medications Current Medications Acetaminophen (Tylenol Tab) 650 mg Q6H PRN PO PAIN AND OR ELEVATED TEMP Last administered on 11/13/16t 13:39; Admin Dose 650 MG; Start 11/12/16 at 23:30 Zolpidem Tartrate (Ambien) 5 mg HS PRN PO INSOMNIA; Start 11/12/16 at 23:30 Ferrous Sulfate (Ferrous Sulfate (Ec)) 325 mg BID PO Last administered on 09:03; Admin Dose 325 MG; Start 11/18/16 at 09:00 Ibuprofen (Motrin) 600 mg Q6H PRN PO PAIN Last administered on 11/21/16 09:09 ; Admin Dose 600 MG; Start 11/13/16 at 20:00 Prednisone (Prednisone) 60 mg DAILY PO Last administered on 11/21/16 09:03; Admin Dose 60 MG; Start 11/14/16 at 16:00 Ascorbic Acid (Vitamin C) 500 mg DAILY PO Last administered on 11/21/16 09:03 ; Admin Dose 500 MG; Start 11/15/16 at 09:00 Folic Acid (Folic Acid) 2 mg DAILY PO Last administered on 11/21/16 09:03; Admin Dose 2 MG; Start 11/15/16 at 09:00 Trimethoprim/ Sulfamethoxazole (Bactrim (Ds)) 1 tab TuThSa@09 PO Last administered on 11/21/16 09:02; Admin Dose 1 TAB; Start 11/14/16 at 15:45 JORJE NICHOLAS Nov 21, 2016 14:19
[2016-11-22] VITALS (8 sets, daily range): BP systolic 96–138; BP diastolic 55–67; PULSE 77–94; RESP 15–18
[2016-11-22] MEDS: ALBUTEROL 18 GM INHALER INH SCH ×4 (00:58→12:32)
[2016-11-22 07:21] LABS: ADD SCAN DIFF NO
[2016-11-22 07:29] LABS: ABNORMAL IP MESSAGE 1; HEMATOCRIT 18.6 % (37.0-47.0); MEAN CORPUSCULAR HGB CONC 31.2 g/dl (32.0-37.0); MEAN CORPUSCULAR VOLUME 134.8 fl (82.0-101.0); MEAN PLATELET VOLUME 10.6 fl (7.4-10.4); PLATELET COUNT 108 10^3/UL (140-415); RED BLOOD COUNT 1.38 10^6/ul (4.20-5.40); RED CELL DISTRIBUTION WIDTH 28.9 % (11.5-14.5); WHITE BLOOD COUNT 23.3 10^3/ul (4.8-10.8)
[2016-11-22 07:47] LABS: CALCIUM 9.1 mg/dl (8.4-10.2); CREATININE 0.65 mg/dl (0.44-1.00); POTASSIUM 4.3 mmol/L (3.5-5.1)
[2016-11-22 07:55] LABS: HEMOGLOBIN 5.8 g/dl (12.0-16.0)
[2016-11-22] MEDS: predniSONE 20 MG TAB PO SCH (08:21)
[2016-11-22] MEDS: FERROUS SULFATE (EC) 325 MG TAB PO SCH (08:21)
[2016-11-22] MEDS: ASCORBIC ACID 500 MG TAB PO SCH (08:21)
[2016-11-22] MEDS: FOLIC ACID 1 MG TAB PO SCH (08:22)
[2016-11-22 10:50] LABS: EOSINOPHILS # 0.7 10^3/ul (0.0-0.5); LYMPHOCYTES # 4.7 10^3/ul (0.8-2.9); MONOCYTE # 0.7 10^3/ul (0.3-0.9); MYELOCYTES # 1.4; NEUTROPHIL # 11.2 10^3/ul (1.6-7.5)
[2016-11-22] MEDS ORDERED: FOLI-49 PO (12:18)
[2016-11-22] MEDS ORDERED: Trimethoprim/Sulfamethox (Ds) PO (12:18)
[2016-11-22] MEDS ORDERED: PRED50TA PO (12:18)
[2016-11-22] MEDS ORDERED: FER325 PO (12:18)
--- NOTE | 2016-11-22 14:05 | CONS ---
Date/Time of Note Date/Time of Note DATE: 11/22/16 TIME: 13:50 Assessment/Plan Assessment/Plan Chief Complaint/Hosp Course 31 yo female now diagnosed with autoimmune hemolytic anemia. Bone Marrow as been reviewed by [facility] hematopathologist who sees no evidence of underlying bone marrow disorder. The LDH and low haptoglobin in addition to the bone marrow with erythropoietic hyperplasia, it is evident patient is hemolyzing like from autoimmune hemolytic anemia. -cont Prednisone 1 mg/kg q day, continue Bactrim ppx. Hgb continues to rise. now greater than 5 -cont IV iron as patient's bone marrow is actively trying to make Hemoglobin -Epogen increased to 20,000 units weekly as patient refused blood transfusion -MIRIAN positive with 1:80 titer. Concern for underlying LUPUS, patient should see rheumatology once Hemoglobin has improved. -cont folate 2 mg q day given severe hemolysis -check daily H/H in pediatric tubes. Will limit lab checks as much as possible. -status post BMBx on 11/13/16. need to follow up Bone marrow review by [facility] hematopathologist -ok to discharge patient on prednisone 50mg q day x 14 days with Bactrim DS MWF. will follow up patient in clinic in 7-10 days -home health to go to patient's house for weekly CBC Problems: Consultation Date/Type/Reason Admit Date/Time Nov 12, 2016 at 20:18 Initial Consult Date 11/13/16 Type of Consultation: Hematology Reason for Consultation autoimmune hemolytic anemia Referring Provider: ARGENIS MCKENNA MD 24 HR Interval Summary Free Text/Dictation Hg continues to rise. pt feels better Exam/Review of Systems Vital Signs Vitals Vital Signs Date Time Temp Pulse Resp B/P Pulse Ox O2 Delivery O2 Flow Rate FiO2 11/22/16 13:20 94 11/22/16 11:31 98.0 18 98/55 99 Intake and Output 11/21/16 11/21/16 11/22/16 15:00 23:00 07:00 Intake Total 800 ml 200 ml Balance 800 ml 200 ml Exam Constitutional: alert, oriented Psych: no complaints Head: normocephalic Eyes: nl conjunctiva ENMT: nl external ears & nose, nl lips & teeth Neck: non-tender, supple Respiratory: clear to auscultation, normal air movement Cardiovascular: regular rate and rhythm Gastrointestinal: soft Musculoskeletal: nl extremities to inspection Results Result Diagram: 11/22/16 0640 11/22/16 0640 Results 24 hrs Laboratory Tests Test 11/22/16 06:40 White Blood Count 23.3 H Red Blood Count 1.38 L Hemoglobin 5.8 *L Hematocrit 18.6 L Mean Corpuscular Volume 134.8 H Mean Corpuscular Hemoglobin 42.0 H Mean Corpuscular Hemoglobin Concent 31.2 L Red Cell Distribution Width 28.9 H Platelet Count 108 L Mean Platelet Volume 10.6 H Neutrophils % 48.0 Band Neutrophils % 16.0 H Lymphocytes % 20.0 Monocytes % 3.0 Eosinophils % 3.0 Metamyelocytes % 3.0 H Myelocytes % 6.0 H Promyelocytes % 1.0 H Nucleated Red Blood Cells % 210.0 H Neutrophils # 11.2 H Lymphocytes # 4.7 H Monocytes # 0.7 Eosinophils # 0.7 H Metamyelocytes # 0.7 Myelocytes # 1.4 Promyelocytes # 0.2 Nucleated Red Blood Cells # Differential Comment MANUAL DIFF Sodium Level 139 Potassium Level 4.3 Chloride Level 105 Carbon Dioxide Level 28 Anion Gap 10 Blood Urea Nitrogen 14 Creatinine 0.65 Glucose Level 83 Calcium Level 9.1 PAMELA BENDER M.D. Nov 22, 2016 14:05
--- NOTE | 2016-11-24 21:24 | DS ---
DATE OF ADMISSION: 11/12/2016 DATE OF DISCHARGE: 11/22/2016 FINAL DIAGNOSES: Autoimmune hemolytic anemia, thrombocytopenia and leukocytosis. BRIEF HISTORY: The patient is a 31-year-old female who was followed with Dr. Pak in hematology/on cology consultation. Patient complained of generalized weakness and noted to have hemoglobin of 4.7 on admission and patient was admitted for further evaluation and management for the telemetry floor . Patient is Adventism and cannot receive blood transfusion. HOSPITAL COURSE: The patient was evaluated and followed [facility] The patient underwent a bone marrow biopsy on 11/13/2016 and was diagnosed with autoimmune h emolytic anemia. Patient was given prednisone, iron supplement, Epogen and folate. The patient's he moglobin and hematocrit were closely monitored. The patient's hemoglobin is gradually increased to 5.8, hematocrit to 18.6. The patient denies any weakness. The patient's MIRIAN was positive with 1:80 titer and child support case officer was asked to arrange patient to follow up as an outpatient with rheumatologis t for a high concern for underlying lupus. The patient's condition improved and the patient was dis charged home. CONDITION ON DISCHARGE: Hemodynamically stable. ACTIVITY: As patient tolerates. DIET: Regular diet. DISCHARGE MEDICATIONS: The patient was given a prescription for prednisone 50 mg p.o. daily for 14 days and Bactrim-DS 1 tablet 3 times a week by Dr. Pak. The patient was given a prescription for f errous sulfate supplements and folic acid. The patient continued home medication of Ventolin and vi tamin C. DISCHARGE INSTRUCTIONS: The patient was discharged actually with home health services for weekly bl ood draw for CBC and the patient was instructed to follow up with Dr. Pak in 1 week and patient wa s instructed to follow up with property maintenance supervisor per case management arrangement. Interdisciplinary alton n of care was established for this patient. Plan of care was discussed with Dr. Will. CONDITION ON DISCHARGE: Stable. ACTIVITY: As patient tolerates. DIET: Regular diet. Dictated By: SMITH BUSTAMANTE WRIST LINER for ARGENIS WILL MD SR/NTS Conf#: [id number] DID#: [id number]
== END 2016-11-22 13:41 | disposition home or self-care (01) | DRG 809 ==
LOC: E/R 16:42 → MS1 20:18 → TEL 11-14 12:50
PROVIDERS: ADMIT Internal Medicine; ATTEND Internal Medicine
PROC: 07DR3ZX Extraction of Iliac Bone Marrow, Percutaneous Approach, Diagnostic (ICD-10-PCS; principal; 2016-11-13)
DX: D59.1 Other autoimmune hemolytic anemias (principal); D61.818 Other pancytopenia; D69.6 Thrombocytopenia, unspecified; E53.8 Deficiency of other specified B group vitamins; D72.819 Decreased white blood cell count, unspecified; D53.9 Nutritional anemia, unspecified; D50.9 Iron deficiency anemia, unspecified; Z53.21 Procedure and treatment not carried out due to patient leaving prior to being seen by health care provider; Z87.891 Personal history of nicotine dependence
CPT/HCPCS: 36415; 77012; 80048; 80053; 82607; 82746; 83010; 83615; 84560; 84703; 85014; 85018; 85025; 85045; 85610; 85730; 86038; 86850; 86870; 86880; 86900; 86901; 88305; 88311; 88313; 93005; J0885; J0456; J2250; J2916; J3010; J7040; J7042; J7510; J7512

== ENCOUNTER 2017-02-17 18:07 | Emergency (ER) | payer SELFPAY ==
[~2017-02-17] VITALS: Ht 154.9 cm; Wt 94.0 kg
[~2017-02-17 18:07] MED LIST: ALBU18HF INHALATION; ASCO500C7 PO; FER325 PO; FOLI-49 PO; PRED50TA PO; Trimethoprim/Sulfamethox (Ds) PO
[2017-02-17 18:10] VITALS: Ht 154.9 cm; Wt 94.0 kg
== END 2017-02-17 20:26 | disposition left against medical advice (07) ==
LOC: FTE 18:07 → E/R 20:26
DX: Z53.21 Procedure and treatment not carried out due to patient leaving prior to being seen by health care provider (principal)

== ENCOUNTER 2017-02-21 14:08 | Inpatient (IN) | payer OTHER ==
[~2017-02-21] VITALS: Ht 154.9 cm; Wt 84.4 kg
[2017-02-21] MEDS ORDERED: SOD CHLORIDE 0.9% 1,000 ML IV ONE (14:30)
--- NOTE | 2017-02-21 14:59 | ERA ---
ER Documentation Chief Complaint Date/Time DATE: 02/21/17 TIME: 14:55 Chief Complaint WEAKNESS X 1 WEEK (ROXANNA TANNER PA-C) HPI This is a 31-year-old female with history of polycystic ovarian syndrome who presents with a chief complaint of weakness. Patient does not take any medications. Patient has been hospitalized here before for anemia. Patient states that it feels like anemia again. Is also complaining of shortness of breath. Patient denies any other symptoms including dizziness, chest pain, dyspnea, headache, pain, diarrhea, vomiting, or bleeding. Patient states her last menstrual period was around November. Denies sexual activity. Patient has a history of meth use, but has not used in over one year. Patient has no other complaints and describes no other associated manifestations. Nursing notes have been reviewed and are consistent with the history given. (ROXANNA TANNER PA-C) ROS All systems reviewed and are negative except as per history of present illness. (ROXANNA TANNER PA-C) Medications Home Meds Reported Medications Sulfamethoxazole/Trimethoprim* (Bactrim Ds* Tablet) 1 Each Tablet, 1 TAB PO DAILY, TAB ON FRIDAY AND Friday02/21/17 Prednisone* (Prednisone*) 10 Mg Tab, 10 MG PO DAILY, TAB 02/21/17 Discontinued Reported Medications Ascorbic Acid* (Vitamin C*) 500 Mg Capsule.sa, 500 MG PO DAILY, CAP 11/12/16 Albuterol Sulfate* (Ventolin HFA*) 18 Gm Hfa.aer.ad, 2 PUFF INHALATION Q4H, #1 INHALER 11/12/16 Discontinued Scripts [Trimethoprim/Sulfamethox (Ds)] 1 TAB TAB No Conflict Check, 1 TAB PO TuThSa@09 , #30 Prov:SMITH BUSTAMANTE 11/22/16 Prednisone* (Prednisone*) 50 Mg Tablet, 50 MG PO DAILY for 14 Days, TAB Prov:SMITH BUSTAMANTE 11/22/16 Folic Acid* (Folic Acid*) 1 Mg Tablet, 2 MG PO DAILY for 30 Days, TAB Prov:SMITH BUSTAMANTE 11/22/16 Ferrous Sulfate* (Ferrous Sulfate*) 325 Mg Tabec, 325 MG PO BID for 30 Days, TAB Prov:SMITH BUSTAMANTE 11/22/16 Allergies Allergies: Coded Allergies: No Known Allergy (Unverified , 02/21/17) PMhx/Soc History of Surgery: Yes (C/SECTION) Anesthesia Reaction: No Hx Neurological Disorder: No Hx Respiratory Disorders: No Hx Cardiac Disorders: No Hx Psychiatric Problems: No Hx Miscellaneous Medical Probl: Yes (PCOS) Hx Alcohol Use: No Hx Substance Use: No Hx Tobacco Use: No Smoking Status: Never smoker (ROXANNA TANNER PA-C) Physical Exam Vitals Vital Signs Date Time Temp Pulse Resp B/P Pulse Ox O2 Delivery O2 Flow Rate FiO2 02/21/17 20:12 98.7 109 20 108/70 100 Nasal Cannula 2.0 02/21/17 19:00 101 19 110/69 100 Nasal Cannula 2.0 02/21/17 17:57 99 17 107/63 100 Nasal Cannula 2.0 02/21/17 16:27 98.6 91 20 120/77 100 Room Air 02/21/17 14:10 98.0 108 18 119/72 99 (TRISHA VILLAREAL MD) Physical Exam Const: Obese 31-year-old female and no acute distress. Head: Atraumatic Eyes: Mild jaundice of sclera bilaterally. No injection. PERRLA, EOMI bilaterally. ENT: Normal External Ears, Nose and Mouth. Neck: Full range of motion..~ No meningismus. Good air movement with auscultation. Resp: Clear to auscultation bilaterally. No tripoding, drooling or hot potato voice. Equal chest expansion. Cardio: Regular rate and rhythm, no murmurs. Cap refill less than 2 seconds. Radial and posterior tibial pulses 2+ bilaterally. Abd: Soft, non tender, non distended. Normal bowel sounds Skin: Mild paleness in the face. No petechiae or rashes Back: No midline or flank tenderness Ext: No cyanosis, or edema Neur: Awake and alert Psych: Normal Mood and Affect (ROXANNA TANNER PA-C) Result Diagram: 02/21/17 1500 02/21/17 1500 Results 24 hrs Laboratory Tests Test 02/21/17 15:00 02/21/17 15:25 White Blood Count 28.110^3/ul Red Blood Count 1.4610^6/ul Hemoglobin 5.8g/dl Hematocrit 15.7% Mean Corpuscular Volume 107.5fl Mean Corpuscular Hemoglobin 39.7pg Mean Corpuscular Hemoglobin Concent 36.9g/dl Red Cell Distribution Width 24.5% Platelet Count 01741^3/UL Mean Platelet Volume 10.6fl Neutrophils % % Segmented Neutrophils % (Manual) 77% Lymphocytes % % Lymphocytes % (Manual) 13% Monocytes % % Monocytes % (Manual) 10% Eosinophils % % Basophils % % Nucleated Red Blood Cells % 275% Neutrophils # 10^3/ul Absolute Lymphocytes (Manual) 3.610^3/ul Lymphocytes # 10^3/ul Monocytes # 10^3/ul Absolute Monocytes (Manual) 2.810^3/ul Eosinophils # 10^3/ul Basophils # 10^3/ul Nucleated Red Blood Cells # 10^3/ul Thrombocytosis 4% Platelet Morphology Comment @See below Polychromasia 3+ Poikilocytosis 2+ Anisocytosis 3+ Microcytosis 3+ Prothrombin Time 14.2Sec Prothrombin Time Ratio 1.1 INR International Normalized Ratio 1.10 Activated Partial Thromboplast Time 25.5Sec Sodium Level 143mmol/L Potassium Level 3.9mmol/L Chloride Level 103mmol/L Carbon Dioxide Level 26mmol/L Anion Gap 18 Blood Urea Nitrogen 18mg/dl Creatinine 0.69mg/dl Glucose Level 88mg/dl Calcium Level 9.3mg/dl Total Bilirubin 1.8mg/dl Direct Bilirubin 0.00mg/dl Indirect Bilirubin 1.8mg/dl Aspartate Amino Transf (AST/SGOT) 123IU/L Alanine Aminotransferase (ALT/SGPT) 74IU/L Alkaline Phosphatase 70IU/L Total Protein 8.0g/dl Albumin 4.7g/dl Bedside Urine pH (LAB) 5.5 Bedside Urine Protein (LAB) Trace Bedside Urine Glucose (UA) Negative Bedside Urine Ketones (LAB) Negative Bedside Urine Blood 2+ Bedside Urine Nitrite (LAB) Negative Bedside Urine Leukocyte Esterase (L Negative Current Medications Medications (Trade) Dose Ordered Sig/Corey Route PRN Reason Start Time Stop Time Status Last Admin Dose Admin Sodium Chloride 1,000 ml @ 1,000 mls/hr Q1H ONCE IV 02/21/17 14:30 02/21/17 15:29 DC 02/21/17 15:03 Sodium Chloride (NS) 1,000 ml @ 1,000 mls/hr Q1H STAT IV 02/21/17 16:57 02/21/17 17:56 DC 02/21/17 17:30 Ondansetron HCl (Zofran Inj) 4 mg ER BRIDGE PRN IV NAUSEA AND/OR VOMITING 02/21/17 17:30 02/22/17 17:29 Acetaminophen (Tylenol Tab) 650 mg ER BRIDGE PRN PO MILD PAIN/FEVER 02/21/17 17:30 02/22/17 17:29 Methylprednisolone Sodium Succinate (Solu-Medrol) 60 mg Q8 ONCE IV 02/21/17 22:00 02/21/17 22:01 02/21/17 18:16 Methylprednisolone Sodium Succinate (Solu-Medrol) 125 mg STK-MED ONCE .ROUTE 02/21/17 18:10 02/21/17 18:11 DC (TRISHA VILLAREAL MD) Procedures/MDM 31-year-old female with a history of anemia and PCOS presents complaining of shortness of breath and weakness. Patient does not take any medications for PCOS. CBC was ordered. I was called around 1520 with a critical lab; hemoglobin 5.8. Type and crossmatch was being ordered when the nurse approached me and told me that the patient was Jehovah's witness. I went and talked to the patient myself who confirmed this and said she will refuse any blood products. I have enlisted the help of my supervising physician Dr. Villareal who will now be taking the case. (ROXANNA TANNER PA-C) Patient is presenting with worsening fatigue and evidence of severe anemia, likely autoimmune. Her vitals are notable for mild tachycardia, otherwise she is hemodynamically stable. She is mentating normally. Patient adamantly refused any blood transfusion given she is a Jehovah's witness. I discussed with her the risks of her not obtaining a transfusion and she understands. I spoke with the try out person field identification specialist, who recommended Solu-Medrol 60 mg every 8 hours. 1 dose was given here. IV fluids were given. There is no evidence of acute end organ ischemia. Patient will be admitted to telemetry. Accepting Care Team: Current data and ongoing care discussed. Time: Time of admission Primary Provider: Sally Mahoney, field identification specialist for Dr Will Consulting: Lonny Cervantes with hematology Outstanding Data: none (TRISHA VILLAREAL MD) Departure Diagnosis: Primary Impression: Acute weakness Additional Impression: Severe anemia Condition: Serious Additional Instructions: Patient will be transferred to the care of ROXANNA Betancourt PA-C Feb 21, 2017 14:59 TRISHA VILLAREAL MD Feb 21, 2017 20:27
[2017-02-21 15:09] LABS: ABNORMAL IP MESSAGE 1; HEMATOCRIT 15.7 % (37.0-47.0); MEAN CORPUSCULAR HEMOGLOBIN 39.7 pg (29.0-33.0); MEAN CORPUSCULAR HGB CONC 36.9 g/dl (32.0-37.0); MEAN CORPUSCULAR VOLUME 107.5 fl (82.0-101.0); MEAN PLATELET VOLUME 10.6 fl (7.4-10.4); NUCLEATED RED BLOOD CELLS% 150.4 /100WBC (0.0-0.0); PLATELET COUNT 148 10^3/UL (140-415); RED BLOOD COUNT 1.46 10^6/ul (4.20-5.40); RED CELL DISTRIBUTION WIDTH 24.5 % (11.5-14.5); WHITE BLOOD COUNT 28.1 10^3/ul (4.8-10.8)
[2017-02-21 15:19] LABS: URINE BLOOD (Dip) POC 2+ (NEGATIVE)
[2017-02-21 15:21] LABS: INR 1.1; PROTIME 14.2 Sec (12.2-14.2); PT RATIO 1.1
[2017-02-21 15:22] LABS: PARTIAL THROMBOPLASTIN TIME 25.5 Sec (25.0-35.0)
[2017-02-21 15:27] LABS: HEMOGLOBIN 5.8 g/dl (12.0-16.0); POSITIVE DIFF @See below
[2017-02-21 15:40] LABS: CALCIUM 9.3 mg/dl (8.4-10.2); CREATININE 0.69 mg/dl (0.44-1.00); POTASSIUM 3.9 mmol/L (3.5-5.1)
[2017-02-21] MEDS ORDERED: SOD CHLORIDE 0.9% 1,000 ML IV STA (16:57)
[2017-02-21 17:06] LABS: ALBUMIN 4.7 g/dl (3.3-4.9); BILIRUBIN,INDIRECT 1.8 mg/dl (0-1.1); BILIRUBIN,TOTAL 1.8 mg/dl (0.2-1.3)
[2017-02-21] MEDS ORDERED: ACETAMINOPHEN 325 MG TAB PO PRN (17:30)
[2017-02-21] MEDS ORDERED: ONDANSETRON 4 MG INJ IV PRN (17:30)
[2017-02-21] MEDS ORDERED: PRED10TA PO (17:55)
[2017-02-21] MEDS ORDERED: SULF1TAB31 PO (17:57)
[2017-02-21] MEDS ORDERED: METHYLPREDNISOLONE 125 MG INJ ONE (18:10)
[2017-02-21 20:11] LABS: ANISOCYTOSIS 3+ (0-0); ERYTHROBLAST% (NRBC) (M) 275 % (0-0); GIANT THROMBO% (M) 4 % (0-0); MICROCYTOSIS 3+ (0-0); MONOCYTES % (M) 10 % (0-11); POIKILOCYTOSIS 2+ (0-0); POLYCHROMASIA 3+ (0-0)
[2017-02-21 20:12] VITALS: TEMP 98.7
[2017-02-21 21:00] VITALS: BP 114/65; PULSE 104; RESP 20
[2017-02-21 21:34] VITALS: PULSE 109
[2017-02-21 21:53] VITALS: Ht 154.9 cm; Wt 84.4 kg
[2017-02-21] MEDS ORDERED: METHYLPREDNISOLONE 125 MG INJ IV ONE (22:00)
[2017-02-22] VITALS (12 sets, daily range): BP systolic 102–118; BP diastolic 55–62; PULSE 85–119; RESP 15–18
[2017-02-22 06:09] LABS: ABNORMAL IP MESSAGE 1; HEMATOCRIT 14.9 % (37.0-47.0); MEAN CORPUSCULAR HEMOGLOBIN 39.3 pg (29.0-33.0); MEAN CORPUSCULAR HGB CONC 35.6 g/dl (32.0-37.0); MEAN CORPUSCULAR VOLUME 110.4 fl (82.0-101.0); MEAN PLATELET VOLUME 10.5 fl (7.4-10.4); NUCLEATED RED BLOOD CELLS% 136.5 /100WBC (0.0-0.0); PLATELET COUNT 120 10^3/UL (140-415); RED BLOOD COUNT 1.35 10^6/ul (4.20-5.40); RED CELL DISTRIBUTION WIDTH 24.7 % (11.5-14.5); WHITE BLOOD COUNT 25.9 10^3/ul (4.8-10.8)
[2017-02-22 06:16] LABS: HEMOGLOBIN 5.3 g/dl (12.0-16.0); POSITIVE DIFF @See below
[2017-02-22 06:54] LABS: CALCIUM 8.9 mg/dl (8.4-10.2); CREATININE 0.65 mg/dl (0.44-1.00); POTASSIUM 4.3 mmol/L (3.5-5.1)
[2017-02-22 09:12] LABS: ANISOCYTOSIS 3+ (0-0); ERYTHROBLAST% (NRBC) (M) 106 % (0-0); GIANT THROMBO% (M) 3 % (0-0); METAMYELOCYTES %M 1 % (0-0); MONOCYTES % (M) 4 % (0-11); PLATELET ESTIMATE DECREASED; POIKILOCYTOSIS 2+ (0-0); POLYCHROMASIA 3+ (0-0)
--- NOTE | 2017-02-22 10:23 | HP ---
Date/Time of Note Date/Time of Note DATE: 02/22/17 TIME: 10:21 Assessment/Plan VTE Prophylaxis VTE Prophylaxis Intervention: other Lines/Catheters IV Catheter Type (from [facility] Saline Lock Urinary Cath still in place: No Assessment/Plan Chief Complaint/Hosp Course 1) anemia - treatment per hem/Onc - monitor CBC Problems: HPI/ROS Admit Date/Time Admit Date/Time Feb 21, 2017 at 17:22 Hx of Present Illness Patient with a history of symptomatic anemia comes in with the same of feeling weak and tired. PMH/Family/Social Past Surgical History Past Surgical Hx: no surgical history Social History Smoking Status: Former smoker Exam/Review of Systems Vital Signs Vitals Vital Signs Date Time Temp Pulse Resp B/P Pulse Ox O2 Delivery O2 Flow Rate FiO2 02/22/17 08:14 85 02/22/17 07:49 98.0 17 103/62 99 02/22/17 07:45 Nasal Cannula 2.0 Exam Constitutional: well developed Head: atraumatic, normocephalic Neck: supple Respiratory: clear to auscultation Cardiovascular: regular rate and rhythm Gastrointestinal: non-tender, soft Extremities: normal pulses Labs Result Diagram: 02/22/17 0538 02/22/17 0538 LUBA FERRARO Feb 22, 2017 10:23
[2017-02-22] MEDS ORDERED: IMMUNE GLOBULIN (HUMAN) 6 GM INJ IV ONE (14:30)
--- NOTE | 2017-02-22 14:42 | CONS ---
Date/Time of Note Date/Time of Note DATE: 02/22/17 TIME: 14:33 Assessment/Plan Assessment/Plan Problems: (1) Severe anemia Status: Acute Comment: Hemolytic anemia as evidenced by history and high indirect bili -will briefly check ferritin, b12 folate and ldh. -continue solumedrol for now as she has responded to treatment before but since she had cold agglutinin, will send titers and check acute hepatitis panel -treat with a dose of IVIG and discussed with pharmacy. rituxan as treatment option will be decided by Dr saldivar on Friday as it needs clerarance by pharmacy. No blood transfusions and she declined it because she is Jehovah Witness. Consultation Date/Type/Reason Admit Date/Time Feb 21, 2017 at 17:22 Date of Consultation: Feb 22, 2017 Type of Consultation: Hematology for Dr saldivar Reason for Consultation hemolytic anemia in Jehovah witness patient Referring Provider: LUBA FERRARO Hx of Present Illness Patient 31 y/o with chronic hemolytic anemia worked up by Dr Saldivar and treated with response to steroids but whenever the dose of steroids are tapered, she develops symptomatic anemia,. Since she is Jehovah witness, she declines any blood products. Now her hgb is 5-6 and has been started on full dose solumedrol, as her prednisone dose as outpatient was at 10 mg. -Blood bank reports cold agglutinin auto antibody positive and labs show high indirect bilirubin confirming hemolysis. -No active signs of bleeding and denies B symptoms. -Previous workup 12/11 did not show any abnormalities in peripheral blood cytogenetics, BCR ABL and had negative PNH workup. -previous peripheral blood flow showed a small population of blasts in 11/11 and may need follow up. Constitutional: no complaints Eyes: no complaints ENT: no complaints Respiratory: no complaints Cardiovascular: no complaints Gastrointestinal: no complaints Past Surgical History Past Surgical Hx: no surgical history Social History Smoking Status: Former smoker Exam/Review of Systems Vital Signs Vitals Vital Signs Date Time Temp Pulse Resp B/P Pulse Ox O2 Delivery O2 Flow Rate FiO2 02/22/17 12:11 105 02/22/17 11:41 97.8 17 102/57 97 02/22/17 07:45 Nasal Cannula 2.0 Exam conjunctival pallor and slight scleral icterus Constitutional: alert, oriented Psych: no complaints Head: normocephalic Neck: supple Respiratory: normal air movement Cardiovascular: regular rate and rhythm Gastrointestinal: soft Musculoskeletal: nl extremities to inspection Results Result Diagram: 02/22/17 0538 02/22/17 0538 Results 24 hrs Laboratory Tests Test 02/21/17 15:00 02/21/17 15:25 02/22/17 05:38 White Blood Count 28.1 #H 25.9 H Red Blood Count 1.46 L 1.35 L Hemoglobin 5.8 *L 5.3 *L Hematocrit 15.7 L 14.9 L Mean Corpuscular Volume 107.5 #H 110.4 H Mean Corpuscular Hemoglobin 39.7 H 39.3 H Mean Corpuscular Hemoglobin Concent 36.9 35.6 Red Cell Distribution Width 24.5 H 24.7 H Platelet Count 148 # 120 L Mean Platelet Volume 10.6 H 10.5 H Neutrophils % Segmented Neutrophils % (Manual) 77 57 Lymphocytes % Lymphocytes % (Manual) 13 L 27 Monocytes % Monocytes % (Manual) 10 4 Eosinophils % Basophils % Nucleated Red Blood Cells % 275 H 106 H Neutrophils # Absolute Lymphocytes (Manual) 3.6 H 6.9 H Lymphocytes # Monocytes # Absolute Monocytes (Manual) 2.8 H 1.0 H Eosinophils # Basophils # Nucleated Red Blood Cells # Thrombocytosis 4 H 3 H Platelet Morphology Comment @See below Polychromasia 3+ 3+ Poikilocytosis 2+ 2+ Anisocytosis 3+ 3+ Microcytosis 3+ Prothrombin Time 14.2 Prothrombin Time Ratio 1.1 INR International Normalized Ratio 1.10 Activated Partial Thromboplast Time 25.5 Sodium Level 143 145 H Potassium Level 3.9 4.3 Chloride Level 103 107 Carbon Dioxide Level 26 27 Anion Gap 18 H 15 Blood Urea Nitrogen 18 11 Creatinine 0.69 0.65 Glucose Level 88 110 Calcium Level 9.3 8.9 Total Bilirubin 1.8 H Direct Bilirubin 0.00 Indirect Bilirubin 1.8 H Aspartate Amino Transf (AST/SGOT) 123 H Alanine Aminotransferase (ALT/SGPT) 74 H Alkaline Phosphatase 70 Total Protein 8.0 Albumin 4.7 Bedside Urine pH (LAB) 5.5 Bedside Urine Protein (LAB) Trace H Bedside Urine Glucose (UA) Negative Bedside Urine Ketones (LAB) Negative Bedside Urine Blood 2+ H Bedside Urine Nitrite (LAB) Negative Bedside Urine Leukocyte Esterase (L Negative Band Neutrophils % (Manual) 6 H Metamyelocytes % (manual) 1 H Neutrophils # (Manual) 15.2 H Band Neutrophils # 1.5 H Metamyelocytes # 0.2 H Smudge Cells % 6 H Platelet Estimate DECREASED Medications Medications Current Medications Immune Globulin (Carimune Nf) 25 gm ONCE ONCE IV ; Start 02/22/17 at 14:30; Stop 02/22/17 at 14:31; Status UNV Diphenhydramine HCl (Benadryl) 25 mg ONCE ONCE IM ; Start 02/22/17 at 14:30; Stop 02/22/17 at 14:31; Status UNV SHIN HERRON MD Feb 22, 2017 14:42
[2017-02-22] MEDS ORDERED: ACETAMINOPHEN 325 MG TAB PO SCH (15:30)
[2017-02-22] MEDS ORDERED: DIPHENHYDRAMINE 50 MG INJ IM SCH (15:30)
[2017-02-22 16:09] LABS: URINE BLOOD (Dip) POC 2+ (NEGATIVE)
[2017-02-22] MEDS ORDERED: WATER STERILE FOR IV SCH (17:00)
[2017-02-22] MEDS ORDERED: IMMUNE GLOBULIN IV SCH (17:00)
[2017-02-23] VITALS (11 sets, daily range): BP systolic 93–109; BP diastolic 55–58; PULSE 80–120; RESP 15–19
[2017-02-23 07:26] LABS: HAAIG REFLEX REFLEX FILED
[2017-02-23 07:34] LABS: ABNORMAL IP MESSAGE 1; HEMATOCRIT 14.4 % (37.0-47.0); MEAN CORPUSCULAR HEMOGLOBIN 38.8 pg (29.0-33.0); MEAN CORPUSCULAR HGB CONC 34.7 g/dl (32.0-37.0); MEAN CORPUSCULAR VOLUME 111.6 fl (82.0-101.0); MEAN PLATELET VOLUME 10.6 fl (7.4-10.4); NUCLEATED RED BLOOD CELLS% 202.5 /100WBC (0.0-0.0); PLATELET COUNT 103 10^3/UL (140-415); RED BLOOD COUNT 1.29 10^6/ul (4.20-5.40); RED CELL DISTRIBUTION WIDTH 26.4 % (11.5-14.5); WHITE BLOOD COUNT 26.4 10^3/ul (4.8-10.8)
[2017-02-23 07:44] LABS: POSITIVE DIFF @See below
[2017-02-23 08:58] LABS: FOLATE > 20.0 ng/ml (2.8-20.0)
[2017-02-23 09:25] LABS: LACTATE DEHYDROGENASE 6087 IU/L (313-618)
[2017-02-23 10:08] LABS: EOSINOPHILS % (M) 1 % (0-7); METAMYELOCYTES %M 4 % (0-0); MONOCYTES % (M) 2 % (0-11); PROMYELOCYTES % (M) 1 % (0-0)
[2017-02-23 10:09] LABS: ANISOCYTOSIS 3+ (0-0); ERYTHROBLAST% (NRBC) (M) 130 % (0-0); GIANT THROMBO% (M) 7 % (0-0); MICROCYTOSIS 3+ (0-0); PLASMA CELLS #M 0.5 10^3/ul (0.0-0.0); PLASMAC%(M) 2 % (0); PLATELET ESTIMATE NORMAL; POIKILOCYTOSIS 1+ (0-0); POLYCHROMASIA 3+ (0-0); PROMYELOCYTES #M 0 # (0-0)
[2017-02-23 10:56] LABS: HEPATITIS B CORE ANTIBODY NEGATIVE (NEGATIVE)
--- NOTE | 2017-02-23 11:37 | PN ---
Date/Time of Note Date/Time of Note DATE: 02/23/17 TIME: 11:37 Assessment/Plan VTE Prophylaxis VTE Prophylaxis Intervention: other Lines/Catheters IV Catheter Type (from [facility]): Saline Lock Urinary Cath still in place: No Assessment/Plan Chief Complaint/Hosp Course 1) anemia - treatment per hem/Onc - monitor CBC Problems: Subjective 24 Hr Interval Summary Free Text/Dictation Patient is breathing better but still weak Exam/Review of Systems Vital Signs Vitals Vital Signs Date Time Temp Pulse Resp B/P Pulse Ox O2 Delivery O2 Flow Rate FiO2 02/23/17 08:11 88 02/23/17 07:30 Nasal Cannula 2.0 02/23/17 07:22 98.0 17 108/58 96 Intake and Output 02/22/17 02/22/17 02/23/17 15:00 23:00 07:00 Intake Total 750 ml 840 ml 900 ml Balance 750 ml 840 ml 900 ml Exam Constitutional: well developed Head: atraumatic, normocephalic Neck: supple Respiratory: clear to auscultation Cardiovascular: regular rate and rhythm Gastrointestinal: non-tender, soft Extremities: normal pulses Results Result Diagram: 02/23/17 0556 02/22/17 0538 Results 24 hrs Laboratory Tests Test 02/23/17 05:56 02/23/17 05:57 White Blood Count 26.4 H Red Blood Count 1.29 L Hemoglobin 5.0 *L Hematocrit 14.4 L Mean Corpuscular Volume 111.6 H Mean Corpuscular Hemoglobin 38.8 H Mean Corpuscular Hemoglobin Concent 34.7 Red Cell Distribution Width 26.4 H Platelet Count 103 L Mean Platelet Volume 10.6 H Neutrophils % Segmented Neutrophils % (Manual) 45 Band Neutrophils % (Manual) 1 Lymphocytes % Lymphocytes % (Manual) 42 Monocytes % Monocytes % (Manual) 2 Eosinophils % Eosinophils % (Manual) 1 Basophils % Metamyelocytes % (manual) 4 H Promyelocytes % (Manual) 1 H Plasma Cells % (manual) 2 Nucleated Red Blood Cells % 130 H Neutrophils # Neutrophils # (Manual) 11.9 H Band Neutrophils # 0.2 Absolute Lymphocytes (Manual) 11.0 H Lymphocytes # Monocytes # Absolute Monocytes (Manual) 0.5 Eosinophils # Basophils # Metamyelocytes # 1.0 H Promyelocytes # 0 Plasma Cells # (manual) 0.5 H Nucleated Red Blood Cells # Smudge Cells % 1 H Thrombocytosis 7 H Platelet Estimate NORMAL Polychromasia 3+ Poikilocytosis 1+ Anisocytosis 3+ Microcytosis 3+ Macrocytosis 1+ Rouleau 1+ Hepatitis B Surface Antigen NEGATIVE Hepatitis B Core Total Antibody NEGATIVE Hepatitis C Antibody NEGATIVE Ferritin 557.0 H Lactate Dehydrogenase 6087 H Vitamin B12 Level 632 Folate > 20.0 H LUBA FERRARO Feb 23, 2017 11:37
[2017-02-23] MEDS: METHYLPREDNISOLONE 125 MG INJ IV SCH ×2 (13:15→21:08)
--- NOTE | 2017-02-23 13:23 | PN ---
Date/Time of Note Date/Time of Note DATE: 02/23/17 TIME: 13:21 Assessment/Plan VTE Prophylaxis VTE Prophylaxis Intervention: ambulation Lines/Catheters IV [facility] Saline Lock Urinary Cath still in place: No Assessment/Plan Chief Complaint/Hosp Course Patient 31 y/o with chronic hemolytic anemia worked up by Dr Saldivar and treated with response to steroids but whenever the dose of steroids are tapered, she develops symptomatic anemia,. Since she is Jehovah witness, she declines any blood products. Now her hgb is 5-6 and has been started on full dose solumedrol, as her prednisone dose as outpatient was at 10 mg. -Blood bank reports cold agglutinin auto antibody positive and labs show high indirect bilirubin confirming hemolysis. -No active signs of bleeding and denies B symptoms. -Previous workup 12/11 did not show any abnormalities in peripheral blood cytogenetics, BCR ABL and had negative PNH workup. -previous peripheral blood flow showed a small population of blasts in 11/11 and may need follow up. Problems: Assessment/Plan (1) Severe anemia Status: Acute Comment: Hemolytic anemia as evidenced by history and high indirect bili -will briefly check ferritin, b12 folate and ldh. -continue solumedrol for now as she has responded to treatment before but since she had cold agglutinin, will send titers and check acute hepatitis panel -treated with a dose of IVIG and discussed with pharmacy. may need further doses this week rituxan as treatment option will be decided by Dr saldivar on Friday as it needs clerarance by pharmacy. No blood transfusions and she declined it because she is Jehovah Witness. hgb at 5 and monitor Subjective 24 Hr Interval Summary Respiratory: no complaints Cardiovascular: no complaints Exam/Review of Systems Vital Signs Vitals Vital Signs Date Time Temp Pulse Resp B/P Pulse Ox O2 Delivery O2 Flow Rate FiO2 02/23/17 12:17 95 02/23/17 11:49 97.8 18 105/58 98 02/23/17 07:30 Nasal Cannula 2.0 Intake and Output 02/22/17 02/22/17 02/23/17 15:00 23:00 07:00 Intake Total 750 ml 840 ml 900 ml Balance 750 ml 840 ml 900 ml Exam Constitutional: alert, oriented Psych: nl mood/affect Neck: supple Respiratory: normal air movement Cardiovascular: regular rate and rhythm Gastrointestinal: soft Results Result Diagram: 02/23/17 0556 02/22/17 0538 Results 24 hrs Laboratory Tests Test 02/23/17 05:56 02/23/17 05:57 White Blood Count 26.4 H Red Blood Count 1.29 L Hemoglobin 5.0 *L Hematocrit 14.4 L Mean Corpuscular Volume 111.6 H Mean Corpuscular Hemoglobin 38.8 H Mean Corpuscular Hemoglobin Concent 34.7 Red Cell Distribution Width 26.4 H Platelet Count 103 L Mean Platelet Volume 10.6 H Neutrophils % Segmented Neutrophils % (Manual) 45 Band Neutrophils % (Manual) 1 Lymphocytes % Lymphocytes % (Manual) 42 Monocytes % Monocytes % (Manual) 2 Eosinophils % Eosinophils % (Manual) 1 Basophils % Metamyelocytes % (manual) 4 H Promyelocytes % (Manual) 1 H Plasma Cells % (manual) 2 Nucleated Red Blood Cells % 130 H Neutrophils # Neutrophils # (Manual) 11.9 H Band Neutrophils # 0.2 Absolute Lymphocytes (Manual) 11.0 H Lymphocytes # Monocytes # Absolute Monocytes (Manual) 0.5 Eosinophils # Basophils # Metamyelocytes # 1.0 H Promyelocytes # 0 Plasma Cells # (manual) 0.5 H Nucleated Red Blood Cells # Smudge Cells % 1 H Thrombocytosis 7 H Platelet Estimate NORMAL Polychromasia 3+ Poikilocytosis 1+ Anisocytosis 3+ Microcytosis 3+ Macrocytosis 1+ Rouleau 1+ Hepatitis B Surface Antigen NEGATIVE Hepatitis B Core Total Antibody NEGATIVE Hepatitis C Antibody NEGATIVE Ferritin 557.0 H Lactate Dehydrogenase 6087 H Vitamin B12 Level 632 Folate > 20.0 H Medications Medications Current Medications Methylprednisolone Sodium Succinate (Solu-Medrol) 60 mg Q8 IV Last administered on 02/23/17 13:15; Admin Dose 60 MG; Start 02/23/17 at 14:00 Pantoprazole (Protonix Tab) 40 mg DAILY@06 PO ; Start 02/24/17 at 06:00 SHIN HERRON MD Feb 23, 2017 13:23
[2017-02-24] VITALS (11 sets, daily range): BP systolic 103–115; BP diastolic 59–62; PULSE 95–140; RESP 18–20
[2017-02-24] MEDS: PANTOPRAZOLE (EC) 40 MG TAB PO SCH (06:11)
[2017-02-24] MEDS: METHYLPREDNISOLONE 125 MG INJ IV SCH ×3 (06:11→21:20)
[2017-02-24] MEDS: ACETAMINOPHEN 325 MG TAB PO PRN (09:12)
[2017-02-24] MEDS: SOD FERRIC GLUC COMPLX 125 MG in SOD CHLORIDE 0.9% 100 ML IVPB SCH (10:41)
[2017-02-24] MEDS: TRIMETHOPRIM/SULFAMETHOX (SS) TAB PO SCH (10:41)
[2017-02-24 11:58] LABS: IMMUNOGLOBULIN A 342 mg/dl (70-400); IMMUNOGLOBULIN G 1657 mg/dl (700-1600); IMMUNOGLOBULIN M 205 mg/dl (40-230)
--- NOTE | 2017-02-24 14:26 | CONS ---
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 Pt is a [employer] and does not accept blood transfusion. response to steroids but whenever the dose of steroids are tapered, she develops symptomatic anemia,. Since she is Jehovah witness, she declines any blood products. Of note, Previous workup 12/11 did not show any abnormalities in peripheral blood cytogenetics, BCR ABL and had negative PNH workup. Problems: (1) Autoimmune hemolytic anemia, cold antibody type Status: Acute Comment: -pt has col agglutinin disease. she is s/p IVIG and currently on steroids -continue Solumedrol 60mg IV q 8 -will start Rituxan 375mg/m2 today to be given weekly x 4 weeks -will check Cold Agglutinin titer -check cryoglobulin level -check QUIGs Serum ESTHER and SPEP (2) Refusal of blood transfusions as patient is [employer]anism Status: Chronic Comment: -pt will need to start EPO 40,000 unit q week -Ferrlecit x 5 days ordered (3) Back pain Status: Chronic Comment: -Tylenol po q 6 hours prn ordered Qualifiers: Back pain location: low back pain Chronicity: chronic Back pain laterality: right (4) Weakness generalized Status: Chronic Comment: -secondary to her anemia. -monitor sx as Hg rises Consultation Date/Type/Reason Admit Date/Time Feb 21, 2017 at 17:22 Initial Consult Date 02/22/17 Type of Consultation: Hematology Reason for Consultation autoimmune hemolytic anemia Referring Provider: LUBA FERRARO 24 HR Interval Summary Free Text/Dictation pt feels better since admission. was started on IV steroids and given a dose fo IVIG yesterday Exam/Review of Systems Vital Signs Vitals Vital Signs Date Time Temp Pulse Resp B/P Pulse Ox O2 Delivery O2 Flow Rate FiO2 02/24/17 12:11 111 02/24/17 11:34 98.0 18 109/61 98 02/24/17 07:30 Nasal Cannula 2.0 Intake and Output 02/23/17 02/23/17 02/24/17 15:00 23:00 07:00 Intake Total 800 ml 950 ml Balance 800 ml 950 ml Exam Constitutional: alert, oriented Psych: no complaints Head: atraumatic Eyes: nl conjunctiva ENMT: nl external ears & nose Neck: non-tender, supple Respiratory: clear to auscultation, normal air movement Cardiovascular: nl pulses, regular rate and rhythm Gastrointestinal: soft Musculoskeletal: nl extremities to inspection, nl gait and stance Extremities: normal pulses Results Result Diagram: 02/23/17 0556 02/22/17 0538 Results 24 hrs Laboratory Tests Test 02/24/17 08:32 Immunoglobulin A 342 Immunoglobulin G 1657 H Immunoglobulin M 205 Medications Medications Current Medications Methylprednisolone Sodium Succinate (Solu-Medrol) 60 mg Q8 IV Last administered on 02/24/17 06:11; Admin Dose 60 MG; Start 02/23/17 at 14:00 Pantoprazole 40 mg 40 mg DAILY@06 PO Last administered on 02/24/17 06:11; Admin Dose 40 MG; Start 02/24/17 at 06:00 Ferric Sodium Gluconate Complex/ Sodium Chloride (Ferrlecit/NS) 110 ml @ 110 mls/hr Q24H IVPB Last administered on 02/24/17 10:41; Admin Dose 110 MLS/HR; Start 02/24/17 at 10:00; Stop 02/28/17 at 10:59 Epoetin Carroll (Epogen (Oncology)) 40,000 units Mo@17 SC ; Start 02/24/17 at 17:00 Acetaminophen (Tylenol Tab) 325 mg Q6H PRN PO PAIN AND OR ELEVATED TEMP Last administered on 02/24/17 09:12; Admin Dose 325 MG; Start 02/24/17 at 09:00 Trimethoprim/ Sulfamethoxazole (Bactrim (Ss)) 1 tab [id number] PO Last administered on 02/24/17 10:41; Admin Dose 1 TAB; Start 02/24/17 at 09:30 PAMELA BENDER M.D. Feb 24, 2017 14:20
--- NOTE | 2017-02-24 14:41 | PN ---
Date/Time of Note Date/Time of Note DATE: 02/24/17 TIME: 14:41 Assessment/Plan VTE Prophylaxis VTE Prophylaxis Intervention: other Lines/Catheters IV Catheter Type (from [facility]): Saline Lock Urinary Cath still in place: No Assessment/Plan Chief Complaint/Hosp Course 1) anemia - treatment per hem/Onc - monitor CBC Problems: Subjective 24 Hr Interval Summary Free Text/Dictation Patient feel better Exam/Review of Systems Vital Signs Vitals Vital Signs Date Time Temp Pulse Resp B/P Pulse Ox O2 Delivery O2 Flow Rate FiO2 02/24/17 12:11 111 02/24/17 11:34 98.0 18 109/61 98 02/24/17 07:30 Nasal Cannula 2.0 Intake and Output 02/23/17 02/23/17 02/24/17 15:00 23:00 07:00 Intake Total 800 ml 950 ml Balance 800 ml 950 ml Exam Constitutional: well developed Head: atraumatic, normocephalic Neck: supple Respiratory: clear to auscultation Cardiovascular: regular rate and rhythm Gastrointestinal: non-tender, soft Extremities: normal pulses Results Result Diagram: 02/23/17 0556 02/22/17 0538 Results 24 hrs Laboratory Tests Test 02/24/17 08:32 Immunoglobulin A 342 Immunoglobulin G 1657 H Immunoglobulin M 205 Medications Medications Current Medications Methylprednisolone Sodium Succinate (Solu-Medrol) 60 mg Q8 IV Last administered on 02/24/17 06:11; Admin Dose 60 MG; Start 02/23/17 at 14:00 Pantoprazole 40 mg 40 mg DAILY@06 PO Last administered on 02/24/17 06:11; Admin Dose 40 MG; Start 02/24/17 at 06:00 Ferric Sodium Gluconate Complex/ Sodium Chloride (Ferrlecit/NS) 110 ml @ 110 mls/hr Q24H IVPB Last administered on 02/24/17 10:41; Admin Dose 110 MLS/HR; Start 02/24/17 at 10:00; Stop 02/28/17 at 10:59 Epoetin Carroll (Epogen (Oncology)) 40,000 units Mo@17 SC ; Start 02/24/17 at 17:00 Acetaminophen (Tylenol Tab) 325 mg Q6H PRN PO PAIN AND OR ELEVATED TEMP Last administered on 02/24/17 09:12; Admin Dose 325 MG; Start 02/24/17 at 09:00 Trimethoprim/ Sulfamethoxazole (Bactrim (Ss)) 1 tab MONWEDFRI PO Last administered on 02/24/17t 10:41; Admin Dose 1 TAB; Start 02/24/17 at 09:30 LUBA FERRARO Feb 24, 2017 14:41
[2017-02-24] MEDS ORDERED: EPOETIN 10000 UNITS/ML VIAL (ONCOLOGY) SC SCH (17:00)
[2017-02-24] MEDS ORDERED: LIDOCAINE 1% (MPF) 5 ML VIAL SC ONE (18:00)
[2017-02-25] VITALS (12 sets, daily range): BP systolic 102–122; BP diastolic 55–74; PULSE 94–106; RESP 16–20
[2017-02-25] MEDS: ACETAMINOPHEN 325 MG TAB PO PRN ×3 (04:55→21:11)
[2017-02-25] MEDS: PANTOPRAZOLE (EC) 40 MG TAB PO SCH (04:58)
[2017-02-25] MEDS: METHYLPREDNISOLONE 125 MG INJ IV SCH ×3 (04:58→21:06)
[2017-02-25 06:56] LABS: ABNORMAL IP MESSAGE 1; HEMATOCRIT 13.5 % (37.0-47.0); MEAN CORPUSCULAR HEMOGLOBIN 39.8 pg (29.0-33.0); MEAN CORPUSCULAR HGB CONC 34.8 g/dl (32.0-37.0); MEAN CORPUSCULAR VOLUME 114.4 fl (82.0-101.0); MEAN PLATELET VOLUME 10.5 fl (7.4-10.4); NUCLEATED RED BLOOD CELLS% 134.3 /100WBC (0.0-0.0); PLATELET COUNT 97 10^3/UL (140-415); RED BLOOD COUNT 1.18 10^6/ul (4.20-5.40); RED CELL DISTRIBUTION WIDTH 27.2 % (11.5-14.5); WHITE BLOOD COUNT 45.3 10^3/ul (4.8-10.8)
[2017-02-25 07:02] LABS: POSITIVE DIFF @See below
[2017-02-25 07:06] LABS: HEMOGLOBIN 4.7 g/dl (12.0-16.0)
[2017-02-25 07:31] LABS: CALCIUM 9.4 mg/dl (8.4-10.2); CREATININE 0.69 mg/dl (0.44-1.00); POTASSIUM 4.8 mmol/L (3.5-5.1)
[2017-02-25] MEDS: SOD FERRIC GLUC COMPLX 125 MG in SOD CHLORIDE 0.9% 100 ML IVPB SCH (09:56)
[2017-02-25 10:39] LABS: ERYTHROBLAST% (NRBC) (M) 176 % (0-0); LYMPHOCYTES # 8.2 10^3/ul (0.8-2.9); METAMYELOCYTES %M 2 % (0-0); MONOCYTE # 4.1 10^3/ul (0.3-0.9); NEUTROPHIL # 29.9 10^3/ul (1.6-7.5); REACTIVE LYMPHOCYTES% (M) 1 % (0-0)
--- NOTE | 2017-02-25 12:11 | PN ---
Date/Time of Note Date/Time of Note DATE: 02/25/17 TIME: 12:11 Assessment/Plan VTE Prophylaxis VTE Prophylaxis Intervention: other Lines/Catheters IV Catheter Type (from [email or web address] Saline Lock Urinary Cath still in place: No Assessment/Plan Chief Complaint/Hosp Course 1) anemia - treatment per hem/Onc - monitor CBC Problems: Subjective 24 Hr Interval Summary Free Text/Dictation Patient denies any complaints but hemoglobin is continuing to decrease Exam/Review of Systems Vital Signs Vitals Vital Signs Date Time Temp Pulse Resp B/P Pulse Ox O2 Delivery O2 Flow Rate FiO2 02/25/17 11:22 98.3 102 19 109/58 99 02/24/17 19:59 Nasal Cannula 2.0 Intake and Output 02/24/17 02/24/17 02/25/17 15:00 23:00 07:00 Intake Total 510 ml 300 ml Balance 510 ml 300 ml Exam Constitutional: well developed Head: atraumatic, normocephalic Neck: supple Respiratory: clear to auscultation Cardiovascular: regular rate and rhythm Gastrointestinal: non-tender, soft Extremities: normal pulses Results Result Diagram: 02/25/17 0642 02/25/17 0642 Results 24 hrs Laboratory Tests Test 02/24/17 14:43 02/25/17 06:42 Cold Agglutinin Titer 1:4 White Blood Count 45.3 #H Red Blood Count 1.18 L Hemoglobin 4.7 *L Hematocrit 13.5 L Mean Corpuscular Volume 114.4 H Mean Corpuscular Hemoglobin 39.8 H Mean Corpuscular Hemoglobin Concent 34.8 Red Cell Distribution Width 27.2 H Platelet Count 97 L Mean Platelet Volume 10.5 H Neutrophils % 66.0 Lymphocytes % 18.0 Reactive Lymphocytes % (Manual) 1 H Monocytes % 9.0 Eosinophils % Basophils % Metamyelocytes % (manual) 2 H Nucleated Red Blood Cells % 176 H Neutrophils # 29.9 H Band Neutrophils # 29.9 H Lymphocytes # 8.2 H Reactive Lymphocytes # Pending Monocytes # 4.1 H Eosinophils # Basophils # Metamyelocytes # Pending Nucleated Red Blood Cells # Sodium Level 143 Potassium Level 4.8 Chloride Level 100 Carbon Dioxide Level 26 Anion Gap 22 H Blood Urea Nitrogen 21 H Creatinine 0.69 Glucose Level 123 Calcium Level 9.4 Medications Medications Current Medications Methylprednisolone Sodium Succinate (Solu-Medrol) 60 mg Q8 IV Last administered on 02/25/17 04:58; Admin Dose 60 MG; Start 02/23/17 at 14:00 Pantoprazole 40 mg 40 mg DAILY@06 PO Last administered on 02/25/17 04:58; Admin Dose 40 MG; Start 02/24/17 at 06:00 Ferric Sodium Gluconate Complex/ Sodium Chloride (Ferrlecit/NS) 110 ml @ 110 mls/hr Q24H IVPB Last administered on 02/25/17 09:56; Admin Dose 110 MLS/HR; Start 02/24/17 at 10:00; Stop 02/28/17 at 10:59 Epoetin Carroll (Epogen (Oncology)) 40,000 units Mo@17 SC Last administered on 18:57; Admin Dose 40,000 UNITS; Start 02/24/17 at 17:00 Acetaminophen (Tylenol Tab) 325 mg Q6H PRN PO PAIN AND OR ELEVATED TEMP Last administered on 02/25/17 04:55; Admin Dose 325 MG; Start 02/24/17 at 09:00 Trimethoprim/ Sulfamethoxazole (Bactrim (Ss)) 1 tab MONWEDFRI PO Last administered on 02/24/17 10:41; Admin Dose 1 TAB; Start 02/24/17 at 09:30 LUBA FERRARO Feb 25, 2017 12:11
--- NOTE | 2017-02-25 18:15 | CONS ---
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 Pt is a [employer] and does not accept blood transfusion. response to steroids but whenever the dose of steroids are tapered, she develops symptomatic anemia,. Since she is Jehovah witness, she declines any blood products. Of note, Previous workup 12/11 did not show any abnormalities in peripheral blood cytogenetics, BCR ABL and had negative PNH workup. Problems: Additional Assessment/Plan Problems: (1) Autoimmune hemolytic anemia, cold antibody type Status: Acute Comment: -pt has col agglutinin disease. she is s/p IVIG and currently on steroids -continue Solumedrol 60mg IV q 8 -will start Rituxan 375mg/m2 today to be given weekly x 4 weeks. this should be given today -Cold Agglutinin titer at 1:4 -f/u cryoglobulin level -f/u Serum ESTHER and SPEP (2) Refusal of blood transfusions as patient is [employer] Status: Chronic Comment: -pt will need to start EPO 40,000 unit q week -Ferrlecit x 5 days ordered (3) Back pain Status: Chronic Comment: -Tylenol po q 6 hours prn ordered Qualifiers: Back pain location: low back pain Chronicity: chronic Back pain laterality: right (4) Weakness generalized Status: Chronic Comment: -secondary to her anemia. -monitor sx as Hg rises Consultation Date/Type/Reason Admit Date/Time Feb 21, 2017 at 17:22 Initial Consult Date 02/22/17 Type of Consultation: Hematology Reason for Consultation hemolytic anemia Referring Provider: LUBA FERRARO 24 HR Interval Summary Free Text/Dictation pt was started on Iv iron and procrit. continues on IV steroids. Hg did drop slightly from yesterday Exam/Review of Systems Vital Signs Vitals Vital Signs Date Time Temp Pulse Resp B/P Pulse Ox O2 Delivery O2 Flow Rate FiO2 02/25/17 16:54 102 02/25/17 15:20 98.0 18 122/74 97 02/24/17 19:59 Nasal Cannula 2.0 Intake and Output 02/24/17 02/24/17 02/25/17 15:00 23:00 07:00 Intake Total 510 ml 300 ml Balance 510 ml 300 ml Exam Constitutional: oriented Psych: no complaints Head: atraumatic, normocephalic Eyes: nl conjunctiva ENMT: nl external ears & nose Neck: non-tender, supple Respiratory: clear to auscultation Cardiovascular: nl pulses, regular rate and rhythm Gastrointestinal: soft Musculoskeletal: nl extremities to inspection, nl gait and stance Extremities: normal pulses Results Result Diagram: 02/25/17 0642 02/25/17 0642 Results 24 hrs Laboratory Tests Test 02/25/17 06:42 White Blood Count 45.3 #H Red Blood Count 1.18 L Hemoglobin 4.7 *L Hematocrit 13.5 L Mean Corpuscular Volume 114.4 H Mean Corpuscular Hemoglobin 39.8 H Mean Corpuscular Hemoglobin Concent 34.8 Red Cell Distribution Width 27.2 H Platelet Count 97 L Mean Platelet Volume 10.5 H Neutrophils % 66.0 Lymphocytes % 18.0 Reactive Lymphocytes % (Manual) 1 H Monocytes % 9.0 Eosinophils % Basophils % Metamyelocytes % (manual) 2 H Nucleated Red Blood Cells % 176 H Neutrophils # 29.9 H Band Neutrophils # 29.9 H Lymphocytes # 8.2 H Reactive Lymphocytes # 0.4 H Monocytes # 4.1 H Eosinophils # Basophils # Metamyelocytes # 0.9 H Nucleated Red Blood Cells # Sodium Level 143 Potassium Level 4.8 Chloride Level 100 Carbon Dioxide Level 26 Anion Gap 22 H Blood Urea Nitrogen 21 H Creatinine 0.69 Glucose Level 123 Calcium Level 9.4 Medications Medications Current Medications Methylprednisolone Sodium Succinate (Solu-Medrol) 60 mg Q8 IV Last administered on 02/25/17 13:44; Admin Dose 60 MG; Start 02/23/17 at 14:00 Pantoprazole 40 mg 40 mg DAILY@06 PO Last administered on 02/25/17 04:58; Admin Dose 40 MG; Start 02/24/17 at 06:00 Ferric Sodium Gluconate Complex/ Sodium Chloride (Ferrlecit/NS) 110 ml @ 110 mls/hr Q24H IVPB Last administered on 02/25/17 09:56; Admin Dose 110 MLS/HR; Start 02/24/17 at 10:00; Stop 02/28/17 at 10:59 Epoetin Carroll (Epogen (Oncology)) 40,000 units Mo@17 SC Last administered on 18:57; Admin Dose 40,000 UNITS; Start 02/24/17 at 17:00 Acetaminophen (Tylenol Tab) 325 mg Q6H PRN PO PAIN AND OR ELEVATED TEMP Last administered on 02/25/17 13:47; Admin Dose 325 MG; Start 02/24/17 at 09:00 Trimethoprim/ Sulfamethoxazole (Bactrim (Ss)) 1 tab MONWEDFRI PO Last administered on 02/24/17 10:41; Admin Dose 1 TAB; Start 02/24/17 at 09:30 PAMELA BENDER M.D. Feb 25, 2017 18:15
--- NOTE | 2017-02-25 18:16 | RADRPT ---
PROCEDURE: Ultrasound guidance for placement of needle in left upper extremity vein. CLINICAL INDICATION: Venous access. TECHNIQUE: Limited sonography of the left upper extremity was performed. Ultrasound images were recorded and s tored in the patient's medical record. COMPARISON: None. FINDINGS: The ultrasound images demonstrate a patent left upper extremity vein. The PICC line was inserted by the PICC line nurse. IMPRESSION: 1. Ultrasound guidance for a needle placement in a left upper extremity vein. 2. The left upper extremity vein is patent. RPTAT: QQ .Sam Domingo MD, MD Date Time Electronically viewed and signed by .Sam Domingo MD, on 02/25/2017 18:15 .R/
--- NOTE | 2017-02-25 18:16 | RADRPT ---
PROCEDURE: XR Chest. CLINICAL INDICATION: Check PICC line position. TECHNIQUE: Single frontal view. COMPARISON: No prior study is available for comparison. FINDINGS: There is a left arm PICC line with the tip in the lower right atrium. The lungs are clear. The heart size is normal. There is no pleural effusion. There is no pneumothorax. IMPRESSION: 1. Left arm PICC line tip in lower right atrium. This should be pulled back 10 cm. The PICC line nurse is aware. 2. Otherwise normal chest radiograph. RPTAT: QQ .Sam Domingo MD, MD Date Time Electronically viewed and signed by .Sam Domingo MD, on 02/25/2017 18:16 .R/
--- NOTE | 2017-02-25 18:17 | RADRPT ---
PROCEDURE: XR Chest. CLINICAL INDICATION: Check PICC line position. TECHNIQUE: Single frontal view. COMPARISON: Prior study done earlier the same day. FINDINGS: There is a left arm PICC line with the tip in the lower superior vena cava. The lungs are clear. The heart size is normal. There is no pleural effusion. There is no pneumothorax. IMPRESSION: 1. Left arm PICC line tip in satisfactory position. 2. Otherwise normal chest radiograph. RPTAT: QQ .Sam Domingo MD, Date Time Electronically viewed and signed by .Sam Domingo MD, on 02/25/2017 18:16 .R/
[2017-02-25] MEDS ORDERED: SOD CHLORIDE 0.9% 100 ML ONE (20:08)
[2017-02-25 22:08] LABS: ALBUMIN 4.4 g/dL (3.8-4.8)
[2017-02-26] VITALS (19 sets, daily range): BP systolic 102–122; BP diastolic 55–66; PULSE 88–111; RESP 16–20
[2017-02-26] MEDS: ACETAMINOPHEN 325 MG TAB PO PRN ×2 (04:50→14:25)
[2017-02-26] MEDS: METHYLPREDNISOLONE 125 MG INJ IV SCH ×3 (04:50→22:31)
[2017-02-26] MEDS: PANTOPRAZOLE (EC) 40 MG TAB PO SCH (05:00)
[2017-02-26] MEDS: SOD FERRIC GLUC COMPLX 125 MG in SOD CHLORIDE 0.9% 100 ML IVPB SCH (09:44)
--- NOTE | 2017-02-26 09:52 | PN ---
Date/Time of Note Date/Time of Note DATE: 02/26/17 TIME: 09:52 Assessment/Plan VTE Prophylaxis VTE Prophylaxis Intervention: other Lines/Catheters IV Catheter Type (from [facility]): PICC Line Central line still needed: Yes Urinary Cath still in place: No Assessment/Plan Chief Complaint/Hosp Course 1) anemia - treatment per hem/Onc - monitor CBC Problems: Subjective 24 Hr Interval Summary Free Text/Dictation Patient denies any complaints, is upbeat Exam/Review of Systems Vital Signs Vitals Vital Signs Date Time Temp Pulse Resp B/P Pulse Ox O2 Delivery O2 Flow Rate FiO2 02/26/17 09:10 91 02/26/17 06:53 98.2 18 113/63 94 02/24/17 19:59 Nasal Cannula 2.0 Intake and Output 02/25/17 02/25/17 02/26/17 15:00 23:00 07:00 Intake Total 110 ml 440 ml Balance 110 ml 440 ml Exam Constitutional: well developed Head: atraumatic, normocephalic Neck: supple Respiratory: clear to auscultation Cardiovascular: regular rate and rhythm Gastrointestinal: non-tender, soft Extremities: normal pulses Results Result Diagram: 02/25/17 0642 02/25/17 0642 Medications Medications Current Medications Methylprednisolone Sodium Succinate (Solu-Medrol) 60 mg Q8 IV Last administered on 02/26/17 04:50; Admin Dose 60 MG; Start 02/23/17 at 14:00 Pantoprazole 40 mg 40 mg DAILY@06 PO Last administered on 02/26/17 05:00; Admin Dose 40 MG; Start 02/24/17 at 06:00 Ferric Sodium Gluconate Complex/ Sodium Chloride (Ferrlecit/NS) 110 ml @ 110 mls/hr Q24H IVPB Last administered on 02/26/17 09:44; Admin Dose 110 MLS/HR; Start 02/24/17 at 10:00; Stop 02/28/17 at 10:59 Epoetin Carroll (Epogen (Oncology)) 40,000 units Mo@17 SC Last administered on 18:57; Admin Dose 40,000 UNITS; Start 02/24/17 at 17:00 Acetaminophen (Tylenol Tab) 325 mg Q6H PRN PO PAIN AND OR ELEVATED TEMP Last administered on 02/26/17 04:50; Admin Dose 325 MG; Start 02/24/17 at 09:00 Trimethoprim/ Sulfamethoxazole (Bactrim (Ss)) 1 tab MONWEDFRI PO Last administered on 02/24/17 10:41; Admin Dose 1 TAB; Start 02/24/17 at 09:30 IV Flush (NS 10 ml) 10 ml PRN PRN IV IV PROTOCOL; Start 02/25/17 at 19:00 LUBA FERRARO Feb 26, 2017 09:52
[2017-02-26] MEDS: TRIMETHOPRIM/SULFAMETHOX (SS) TAB PO SCH (10:49)
[2017-02-26 12:29] LABS: ABNORMAL IP MESSAGE 1; HEMATOCRIT 13.3 % (37.0-47.0); MEAN CORPUSCULAR HEMOGLOBIN 40.2 pg (29.0-33.0); MEAN CORPUSCULAR HGB CONC 35.3 g/dl (32.0-37.0); MEAN CORPUSCULAR VOLUME 113.7 fl (82.0-101.0); MEAN PLATELET VOLUME 11.2 fl (7.4-10.4); NUCLEATED RED BLOOD CELLS% 152.3 /100WBC (0.0-0.0); PLATELET COUNT 115 10^3/UL (140-415); RED BLOOD COUNT 1.17 10^6/ul (4.20-5.40); RED CELL DISTRIBUTION WIDTH 27.1 % (11.5-14.5)
[2017-02-26 12:36] LABS: HEMOGLOBIN 4.7 g/dl (12.0-16.0)
[2017-02-26 14:32] LABS: ANISOCYTOSIS 3+ (0-0); ERYTHROBLAST% (NRBC) (M) 155 % (0-0); HYPOCHROMASIA 1+ (0-0); METAMYELOCYTES %M 6 % (0-0); MICROCYTOSIS 2+ (0-0); MONOCYTE # 1.8 10^3/ul (0.3-0.9); NEUTROPHIL # 31.7 10^3/ul (1.6-7.5); POLYCHROMASIA 3+ (0-0)
[2017-02-26] MEDS ORDERED: DIPHENHYDRAMINE 50 MG INJ IV PRN (17:30)
[2017-02-26] MEDS ORDERED: MEPERIDINE 25 MG INJ IV PRN (17:30)
[2017-02-26] MEDS ORDERED: DIPHENHYDRAMINE 50 MG INJ IV SCH (20:00)
[2017-02-26] MEDS ORDERED: ACETAMINOPHEN 325 MG TAB PO SCH (20:00)
[2017-02-26] MEDS ORDERED: RITUXIMAB IV SCH ×2 (21:00)
[2017-02-26] MEDS ORDERED: METHYLPREDNISOLONE 125 MG INJ IV PRN (21:00)
[2017-02-26] MEDS ORDERED: SOD CHLORIDE 0.9% IV SCH ×2 (21:00)
[2017-02-26] MEDS: SOD CHLORIDE 0.9% 1,000 ML IV SCH (21:12)
--- NOTE | 2017-02-26 22:09 | CONS ---
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 Pt is a [place] and does not accept blood transfusion. response to steroids but whenever the dose of steroids are tapered, she develops symptomatic anemia,. Since she is Jehov[employer] witness, she declines any blood products. Of note, Previous workup 12/11 did not show any abnormalities in peripheral blood cytogenetics, BCR ABL and had negative PNH workup. Problems: Additional Assessment/Plan Problems: (1) Autoimmune hemolytic anemia, cold antibody type Status: Acute Comment: -pt has col agglutinin disease. she is s/p IVIG and currently on steroids -continue Solumedrol 60mg IV q 8 -will start Rituxan 375mg/m2 today to be given weekly x 4 weeks. this should be given today -Cold Agglutinin titer at 1:4 -f/u cryoglobulin level -SPEP and Serum ESTHER did not show evidence of monoclonal protein (2) Refusal of blood transfusions as patient is [employer] orth[employer] Status: Chronic Comment: -pt will need to start EPO 40,000 unit q week -Ferrlecit x 5 days have continued (3) Back pain Status: Chronic Comment: -Tylenol po q 6 hours prn ordered Qualifiers: Back pain location: low back pain Chronicity: chronic Back pain laterality: right (4) Weakness generalized Status: Chronic Comment: -secondary to her anemia. -monitor sx as Hg rises. Problems: Consultation Date/Type/Reason Admit Date/Time Feb 21, 2017 at 17:22 Initial Consult Date 02/22/17 Type of Consultation: Hematology Reason for Consultation hemolytic anemia Referring Provider: LUBA FERRARO 24 HR Interval Summary Free Text/Dictation pt still feels very fatigued Exam/Review of Systems Vital Signs Vitals Vital Signs Date Time Temp Pulse Resp B/P Pulse Ox O2 Delivery O2 Flow Rate FiO2 02/26/17 21:54 97 18 107/56 97 Room Air 02/26/17 21:40 97.7 02/24/17 19:59 2.0 Intake and Output 02/25/17 02/25/1717 15:00 23:00 07:00 Intake Total 110 ml 440 ml Balance 110 ml 440 ml Exam Constitutional: alert, oriented Psych: no complaints Head: atraumatic, normocephalic Eyes: nl conjunctiva ENMT: nl external ears & nose Neck: non-tender, supple Respiratory: clear to auscultation, normal air movement Cardiovascular: regular rate and rhythm Gastrointestinal: soft Musculoskeletal: nl extremities to inspection Results Result Diagram: 02/26/17 1207 02/25/17 0642 Results 24 hrs Laboratory Tests Test 02/26/17 12:07 White Blood Count 44.0 H Red Blood Count 1.17 L Hemoglobin 4.7 *L Hematocrit 13.3 L Mean Corpuscular Volume 113.7 H Mean Corpuscular Hemoglobin 40.2 H Mean Corpuscular Hemoglobin Concent 35.3 Red Cell Distribution Width 27.1 H Platelet Count 115 L Mean Platelet Volume 11.2 H Neutrophils % 72.0 Lymphocytes % 9.0 L Monocytes % 4.0 Eosinophils % Basophils % Metamyelocytes % (manual) 6 H Myelocytes % (Manual) 3.0 H Nucleated Red Blood Cells % 155 H Neutrophils # 31.7 H Band Neutrophils # 31.7 H Lymphocytes # 4.0 H Monocytes # 1.8 H Eosinophils # Basophils # Metamyelocytes # 2.6 H Myelocytes # 1.3 H Nucleated Red Blood Cells # Polychromasia 3+ Hypochromasia 1+ Anisocytosis 3+ Microcytosis 2+ Macrocytosis 3+ Medications Medications Current Medications Methylprednisolone Sodium Succinate (Solu-Medrol) 60 mg Q8 IV Last administered on 02/26/17 13:37; Admin Dose 60 MG; Start 02/23/17 at 14:00 Pantoprazole 40 mg 40 mg DAILY@06 PO Last administered on 02/26/17 05:00; Admin Dose 40 MG; Start 02/24/17 at 06:00 Ferric Sodium Gluconate Complex/ Sodium Chloride (Ferrlecit/NS) 110 ml @ 110 mls/hr Q24H IVPB Last administered on 02/26/17 09:44; Admin Dose 110 MLS/HR; Start 02/24/17 at 10:00; Stop 02/28/17 at 10:59 Epoetin Carroll (Epogen (Oncology)) 40,000 units Mo@17 SC Last administered on 18:57; Admin Dose 40,000 UNITS; Start 02/24/17 at 17:00 Acetaminophen (Tylenol Tab) 325 mg Q6H PRN PO PAIN AND OR ELEVATED TEMP Last administered on 02/26/17 14:25; Admin Dose 325 MG; Start 02/24/17 at 09:00 Trimethoprim/ Sulfamethoxazole (Bactrim (Ss)) 1 tab MONWEDFRI PO Last administered on 02/26/17 10:49; Admin Dose 1 TAB; Start 02/24/17 at 09:30 IV Flush 10 ml 10 ml PRN PRN IV IV PROTOCOL; Start 02/25/17 at 19:00 Sodium Chloride (NS) 1,000 ml @ 75 mls/hr [id number] IV Last administered on 21:12; Admin Dose 75 MLS/HR; Start 02/26/17 at 21:00; Stop 02/27/17 at 23:59 Methylprednisolone Sodium Succinate (Solu-Medrol) 60 mg Q2H PRN IV INFUSION REACTION; Start 02/26/17 at 21:00; Stop 02/27/17 at 23:59 Meperidine HCl (Demerol) 25 mg Q2H PRN IV INFUSION REACTION; Start 02/26/17 at 17:30; Stop 02/27/17 at 23:59 Diphenhydramine HCl (Benadryl) 50 mg Q2H PRN IV INFUSION REACTION; Start at 17:30; Stop 02/27/17 at 23:59 Diphenhydramine HCl (Benadryl) 25 mg ONCE IV Last administered on 02/26/17 20: 21; Admin Dose 25 MG; Start 02/26/17 at 20:00; Stop 02/27/17 at 01:00 Acetaminophen 650 mg 650 mg ONCE PO Last administered on 02/26/17 20:21; Admin Dose 650 MG; Start 02/26/17 at 20:00; Stop 02/27/17 at 00:00 Rituximab/ Rituximab/Sodium Chloride (Rituxan/Rituxan/ NS) 345 ml @ 0 mls/hr ONCE IV Last administered on 02/26/17 21:37; Admin Dose 0 MLS/HR; Start at 21:00; Stop 02/27/17 at 20:59 PAMELA BENDER M.D. Feb 26, 2017 22:09
[2017-02-27] VITALS (17 sets, daily range): BP systolic 95–127; BP diastolic 53–71; PULSE 92–121; RESP 17–20
[2017-02-27] MEDS: ACETAMINOPHEN 325 MG TAB PO PRN ×2 (02:02→21:13)
[2017-02-27] MEDS: PANTOPRAZOLE (EC) 40 MG TAB PO SCH (05:16)
[2017-02-27] MEDS: METHYLPREDNISOLONE 125 MG INJ IV SCH ×3 (05:17→21:14)
[2017-02-27 06:47] LABS: ABNORMAL IP MESSAGE 1; HEMATOCRIT 12.2 % (37.0-47.0); MEAN CORPUSCULAR HGB CONC 34.4 g/dl (32.0-37.0); MEAN CORPUSCULAR VOLUME 116.2 fl (82.0-101.0); MEAN PLATELET VOLUME 10.9 fl (7.4-10.4); NUCLEATED RED BLOOD CELLS% 135.4 /100WBC (0.0-0.0); PLATELET COUNT 94 10^3/UL (140-415); RED BLOOD COUNT 1.05 10^6/ul (4.20-5.40); RED CELL DISTRIBUTION WIDTH 27.8 % (11.5-14.5)
[2017-02-27 06:59] LABS: HEMOGLOBIN 4.2 g/dl (12.0-16.0)
[2017-02-27 07:00] LABS: POSITIVE DIFF @See below
[2017-02-27 07:20] LABS: CALCIUM 8.5 mg/dl (8.4-10.2); CREATININE 0.72 mg/dl (0.44-1.00); POTASSIUM 4.5 mmol/L (3.5-5.1)
--- NOTE | 2017-02-27 10:05 | CONS ---
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 Pt is a [employer] and does not accept blood transfusion. response to steroids but whenever the dose of steroids are tapered, she develops symptomatic anemia,. Since she is Jehovah witness, she declines any blood products. Of note, Previous workup 12/11 did not show any abnormalities in peripheral blood cytogenetics, BCR ABL and had negative PNH workup. Pt was given Rituxan yesterday but her Hg continues to drop. Given the complexity of her case, I would like to transfer her to [facility] for higher level of care Problems: (1) Autoimmune hemolytic anemia, cold antibody type Status: Acute Comment: -pt has col agglutinin disease. she is s/p IVIG and currently on steroids -continue Solumedrol 60mg IV q 8 -s/p Rituxan 375mg/m2 today to be given weekly x 4 weeks. this should be given today -Cold Agglutinin titer at 1:4 -f/u cryoglobulin level -f/u complement level -f/u retic count -start Cellcept 1000mg BID to help with hemolysis -SPEP and Serum ESTHER did not show evidence of monoclonal protein -continue folate and MVI (2) Refusal of blood transfusions as patient is [place] Status: Chronic Comment: -will need to increase EPO to 60,000 unit q week -Ferrlecit x 5 days have continued (3) Back pain Status: Chronic Comment: -Tylenol po q 6 hours prn ordered Qualifiers: Back pain location: low back pain Chronicity: chronic Back pain laterality: right (4) Weakness generalized Status: Chronic Comment: -secondary to her anemia. -monitor sx as Hg rises. Problems: Consultation Date/Type/Reason Admit Date/Time Feb 21, 2017 at 17:22 Initial Consult Date 02/22/17 Type of Consultation: Hematology Reason for Consultation cold immune mediated auto immuno hemolytic anemia Referring Provider: LUBA FERRARO 24 HR Interval Summary Free Text/Dictation pt feels very weak, received Rituxan yesterday. Exam/Review of Systems Vital Signs Vitals Vital Signs Date Time Temp Pulse Resp B/P Pulse Ox O2 Delivery O2 Flow Rate FiO2 02/27/17 08:59 92 02/27/17 07:10 98.1 18 105/58 96 02/27/17 01:59 Room Air 02/27/17 00:00 2.0 Intake and Output 02/26/17 02/26/17 02/27/17 15:00 23:00 07:00 Intake Total 110 ml 700 ml 1575 ml Balance 110 ml 700 ml 1575 ml Exam Constitutional: alert, oriented Psych: no complaints Head: normocephalic Eyes: nl conjunctiva ENMT: nl external ears & nose Neck: non-tender, supple Respiratory: clear to auscultation Cardiovascular: nl pulses, regular rate and rhythm Gastrointestinal: soft Musculoskeletal: nl extremities to inspection Results Result Diagram: 02/27/17 0619 02/27/17 0619 Results 24 hrs Laboratory Tests Test 02/26/17 12:07 02/27/17 06:19 White Blood Count 44.0 H 41.0 H Red Blood Count 1.17 L 1.05 L Hemoglobin 4.7 *L 4.2 *L Hematocrit 13.3 L 12.2 L Mean Corpuscular Volume 113.7 H 116.2 H Mean Corpuscular Hemoglobin 40.2 H 40.0 H Mean Corpuscular Hemoglobin Concent 35.3 34.4 Red Cell Distribution Width 27.1 H 27.8 H Platelet Count 115 L 94 L Mean Platelet Volume 11.2 H 10.9 H Neutrophils % 72.0 Lymphocytes % 9.0 L Monocytes % 4.0 Eosinophils % Basophils % Metamyelocytes % (manual) 6 H Myelocytes % (Manual) 3.0 H Nucleated Red Blood Cells % 155 H 135.4 H Neutrophils # 31.7 H Band Neutrophils # 31.7 H Lymphocytes # 4.0 H Monocytes # 1.8 H Eosinophils # Basophils # Metamyelocytes # 2.6 H Myelocytes # 1.3 H Nucleated Red Blood Cells # Polychromasia 3+ Hypochromasia 1+ Anisocytosis 3+ Microcytosis 2+ Macrocytosis 3+ Sodium Level 142 Potassium Level 4.5 Chloride Level 101 Carbon Dioxide Level 28 Anion Gap 18 H Blood Urea Nitrogen 25 H Creatinine 0.72 Glucose Level 108 Calcium Level 8.5 Medications Medications Current Medications Methylprednisolone Sodium Succinate (Solu-Medrol) 60 mg Q8 IV Last administered on 02/27/17 05:17; Admin Dose 60 MG; Start 02/23/17 at 14:00 Pantoprazole 40 mg 40 mg DAILY@06 PO Last administered on 02/27/17 05:16; Admin Dose 40 MG; Start 02/24/17 at 06:00 Ferric Sodium Gluconate Complex/ Sodium Chloride (Ferrlecit/NS) 110 ml @ 110 mls/hr Q24H IVPB Last administered on 02/26/17 09:44; Admin Dose 110 MLS/HR; Start 02/24/17 at 10:00; Stop 02/28/17 at 10:59 Epoetin Carroll (Epogen (Oncology)) 40,000 units Mo@17 SC Last administered on 18:57; Admin Dose 40,000 UNITS; Start 02/24/17 at 17:00 Acetaminophen (Tylenol Tab) 325 mg Q6H PRN PO PAIN AND OR ELEVATED TEMP Last administered on 02/27/17 02:02; Admin Dose 325 MG; Start 02/24/17 at 09:00 Trimethoprim/ Sulfamethoxazole (Bactrim (Ss)) 1 tab MONWEDFRI PO Last administered on 02/26/17 10:49; Admin Dose 1 TAB; Start 02/24/17 at 09:30 IV Flush 10 ml 10 ml PRN PRN IV IV PROTOCOL; Start 02/25/17 at 19:00 Sodium Chloride (NS) 1,000 ml @ 75 mls/hr [id number] IV Last administered on 21:12; Admin Dose 75 MLS/HR; Start 02/26/17 at 21:00; Stop 02/27/17 at 23:59 Methylprednisolone Sodium Succinate (Solu-Medrol) 60 mg Q2H PRN IV INFUSION REACTION; Start 02/26/17 at 21:00; Stop 02/27/17 at 23:59 Meperidine HCl (Demerol) 25 mg Q2H PRN IV INFUSION REACTION; Start 02/26/17 at 17:30; Stop 02/27/17 at 23:59 Diphenhydramine HCl 50 mg 50 mg Q2H PRN IV INFUSION REACTION Last administered on 02/26/17 23:15; Admin Dose 50 MG; Start 02/26/17 at 17:30; Stop 02/27/17 at 23: 59 Rituximab/ Rituximab/Sodium Chloride (Rituxan/Rituxan/ NS) 345 ml @ 0 mls/hr ONCE IV Last administered on 02/26/17t 21:37; Admin Dose 0 MLS/HR; Start at 21:00; Stop 02/27/17 at 20:59 PAMELA BENDER M.D. Feb 27, 2017 10:05
[2017-02-27 10:50] LABS: RETICULOCYTE COUNT % 12.3 % (0.5-1.5)
[2017-02-27] MEDS: SOD CHLORIDE 0.9% 1,000 ML IV SCH ×2 (11:30→23:40)
--- NOTE | 2017-02-27 11:44 | PN ---
Date/Time of Note Date/Time of Note DATE: 02/27/17 TIME: 11:44 Assessment/Plan VTE Prophylaxis VTE Prophylaxis Intervention: other Lines/Catheters IV Catheter Type (from Nrs): PICC Line Central line still needed: Yes Urinary Cath still in place: No Assessment/Plan Chief Complaint/Hosp Course 1) anemia - treatment per hem/Onc - monitor CBC Problems: Subjective 24 Hr Interval Summary Free Text/Dictation Patient denies any complaints Exam/Review of Systems Vital Signs Vitals Vital Signs Date Time Temp Pulse Resp B/P Pulse Ox O2 Delivery O2 Flow Rate FiO2 02/27/17 11:25 98.9 104 17 104/58 98 02/27/17 01:59 Room Air 02/27/17 00:00 2.0 Intake and Output 02/26/17 02/26/17 02/27/17 15:00 23:00 07:00 Intake Total 110 ml 700 ml 1575 ml Balance 110 ml 700 ml 1575 ml Exam Constitutional: well developed Head: atraumatic, normocephalic Neck: supple Respiratory: clear to auscultation Cardiovascular: regular rate and rhythm Gastrointestinal: non-tender, soft Extremities: normal pulses Results Result Diagram: 02/27/1719 02/27/17 0619 Results 24 hrs Laboratory Tests Test 02/26/17 12:07 02/27/17 06:19 White Blood Count 44.0 H 41.0 H Red Blood Count 1.17 L 1.05 L Hemoglobin 4.7 *L 4.2 *L Hematocrit 13.3 L 12.2 L Mean Corpuscular Volume 113.7 H 116.2 H Mean Corpuscular Hemoglobin 40.2 H 40.0 H Mean Corpuscular Hemoglobin Concent 35.3 34.4 Red Cell Distribution Width 27.1 H 27.8 H Platelet Count 115 L 94 L Mean Platelet Volume 11.2 H 10.9 H Neutrophils % 72.0 Lymphocytes % 9.0 L Monocytes % 4.0 Eosinophils % Basophils % Metamyelocytes % (manual) 6 H Myelocytes % (Manual) 3.0 H Nucleated Red Blood Cells % 155 H 135.4 H Neutrophils # 31.7 H Band Neutrophils # 31.7 H Lymphocytes # 4.0 H Monocytes # 1.8 H Eosinophils # Basophils # Metamyelocytes # 2.6 H Myelocytes # 1.3 H Nucleated Red Blood Cells # Polychromasia 3+ Hypochromasia 1+ Anisocytosis 3+ Microcytosis 2+ Macrocytosis 3+ Absolute Reticulocyte Count 0.127 H Percent Reticulocyte Count 12.3 H Sodium Level 142 Potassium Level 4.5 Chloride Level 101 Carbon Dioxide Level 28 Anion Gap 18 H Blood Urea Nitrogen 25 H Creatinine 0.72 Glucose Level 108 Calcium Level 8.5 Medications Medications Current Medications Methylprednisolone Sodium Succinate (Solu-Medrol) 60 mg Q8 IV Last administered on 02/27/17 05:17; Admin Dose 60 MG; Start 02/23/17 at 14:00 Pantoprazole 40 mg 40 mg DAILY@06 PO Last administered on 02/27/17 05:16; Admin Dose 40 MG; Start 02/24/17 at 06:00 Ferric Sodium Gluconate Complex/ Sodium Chloride (Ferrlecit/NS) 110 ml @ 110 mls/hr Q24H IVPB Last administered on 02/26/17 09:44; Admin Dose 110 MLS/HR; Start 02/24/17 at 10:00; Stop 02/28/17 at 10:59 Acetaminophen (Tylenol Tab) 325 mg Q6H PRN PO PAIN AND OR ELEVATED TEMP Last administered on 02/27/17 02:02; Admin Dose 325 MG; Start 02/24/17 at 09:00 Trimethoprim/ Sulfamethoxazole (Bactrim (Ss)) 1 tab MONWEDFRI PO Last administered on 02/26/17 10:49; Admin Dose 1 TAB; Start 02/24/17 at 09:30 IV Flush 10 ml 10 ml PRN PRN IV IV PROTOCOL; Start 02/25/17 at 19:00 Sodium Chloride (NS) 1,000 ml @ 75 mls/hr [id number] IV Last administered on 21:12; Admin Dose 75 MLS/HR; Start 02/26/17 at 21:00; Stop 02/27/17 at 23:59 Methylprednisolone Sodium Succinate (Solu-Medrol) 60 mg Q2H PRN IV INFUSION REACTION; Start 02/26/17 at 21:00; Stop 02/27/17 at 23:59 Meperidine HCl (Demerol) 25 mg Q2H PRN IV INFUSION REACTION; Start 02/26/17 at 17:30; Stop 02/27/17 at 23:59 Diphenhydramine HCl 50 mg 50 mg Q2H PRN IV INFUSION REACTION Last administered on 02/26/17 23:15; Admin Dose 50 MG; Start 02/26/17 at 17:30; Stop 02/27/17 at 23: 59 Rituximab/ Rituximab/Sodium Chloride (Rituxan/Rituxan/ NS) 345 ml @ 0 mls/hr ONCE IV Last administered on 02/26/17 21:37; Admin Dose 0 MLS/HR; Start at 21:00; Stop 02/27/17 at 20:59 Epoetin Carroll (Epogen (Oncology)) 60,000 units Th@17 SC ; Start 02/27/17 at 12:00 Mycophenolate Mofetil (Cellcept) 1,000 mg BID PO ; Start 02/27/17 at 21:00 Folic Acid (Folic Acid) 1 mg DAILY PO ; Start 02/28/17 at 09:00 Multivitamins Therapeutic (Theragran) 1 tab DAILY PO ; Start 02/28/17 at 09:00 LUBA FERRARO Feb 27, 2017 11:44
[2017-02-27] MEDS: SOD FERRIC GLUC COMPLX 125 MG in SOD CHLORIDE 0.9% 100 ML IVPB SCH (12:01)
[2017-02-27 14:03] LABS: ERYTHROBLAST% (NRBC) (M) 230 % (0-0); LYMPHOCYTES # 1.2 10^3/ul (0.8-2.9); METAMYELOCYTES %M 2 % (0-0); MONOCYTE # 4.1 10^3/ul (0.3-0.9); NEUTROPHIL # 30.8 10^3/ul (1.6-7.5); REACTIVE LYMPHOCYTES% (M) 1 % (0-0)
[2017-02-27 14:14] LABS: COMPLEMENT C3 81 mg/dl (88-165); COMPLEMENT C4 22 mg/dl (14-44)
[2017-02-27] MEDS: EPOETIN 10000 UNITS/ML VIAL (ONCOLOGY) SC SCH (17:10)
[2017-02-27] MEDS: MYCOPHENOLATE 250 MG CAP PO SCH (21:13)
[2017-02-28] VITALS (12 sets, daily range): BP systolic 99–118; BP diastolic 56–65; PULSE 86–108; RESP 16–20
[2017-02-28] MEDS: PANTOPRAZOLE (EC) 40 MG TAB PO SCH (05:44)
[2017-02-28] MEDS: ACETAMINOPHEN 325 MG TAB PO PRN ×2 (05:44→10:24)
[2017-02-28] MEDS: METHYLPREDNISOLONE 125 MG INJ IV SCH ×3 (05:44→21:20)
--- NOTE | 2017-02-28 09:25 | CONS ---
Date/Time of Note Date/Time of Note DATE: 02/28/17 TIME: 09:22 Assessment/Plan Assessment/Plan Chief Complaint/Hosp Course 31 y/o with cold agglutinan chronic hemolytic anemia with response to steroids in the past but unable to maintain her Hg once the steroid was tapered. 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 Pt is a [employer] and does not accept blood transfusion. response to steroids but whenever the dose of steroids are tapered, she develops symptomatic anemia,. Since she is Jehovah witness, she declines any blood products. Of note, Previous workup 12/11 did not show any abnormalities in peripheral blood cytogenetics, BCR ABL and had negative PNH workup. Pt was given Rituxan yesterday but her Hg continues to drop. Given the complexity of her case, I would like to transfer her to [facility] for higher level of care Problems: (1) Autoimmune hemolytic anemia, cold antibody type Status: Acute Comment: -pt has col agglutinin disease. she is s/p IVIG and currently on steroids -continue Solumedrol 60mg IV q 8 -s/p Rituxan 375mg/m2 today to be given weekly x 4 weeks. this should be given today -Cold Agglutinin titer at 1:4 -f/u cryoglobulin level -complement shows decrease of C3 -f/u retic count -continue Cellcept 1000mg BID to help with hemolysis -SPEP and Serum ESTHER did not show evidence of monoclonal protein -continue folate and MVI (2) Refusal of blood transfusions as patient is [employer] Status: Chronic Comment: -will need to increase EPO to 60,000 unit q week. this was given last night -Ferrlecit x 5 days have continued (3) Back pain Status: Chronic Comment: -Tylenol po q 6 hours prn ordered Qualifiers: Back pain location: low back pain Chronicity: chronic Back pain laterality: right (4) Weakness generalized Status: Chronic Comment: -secondary to her anemia. -monitor sx as Hg rises. Problems: Consultation Date/Type/Reason Admit Date/Time Feb 21, 2017 at 17:22 Initial Consult Date 02/22/17 Type of Consultation: Hematology Reason for Consultation auto immune hemolytic anemia Referring Provider: LUBA FERRARO 24 HR Interval Summary Free Text/Dictation pt was started on cellcept yesterday. still feels very weak Exam/Review of Systems Vital Signs Vitals Vital Signs Date Time Temp Pulse Resp B/P Pulse Ox O2 Delivery O2 Flow Rate FiO2 02/28/17 08:36 87 02/28/17 07:08 98.5 19 105/64 96 02/27/17 01:59 Room Air 02/27/17 00:00 2.0 Intake and Output 02/27/17 02/27/17 02/28/17 15:00 23:00 07:00 Intake Total 110 ml 950 ml 375 ml Balance 110 ml 950 ml 375 ml Exam Constitutional: alert, oriented Psych: no complaints Head: normocephalic Eyes: nl conjunctiva ENMT: nl external ears & nose Neck: non-tender, supple Respiratory: clear to auscultation, normal air movement Cardiovascular: regular rate and rhythm Gastrointestinal: soft Musculoskeletal: nl extremities to inspection Extremities: normal pulses Results Result Diagram: 02/27/1761802/27/17 06 Medications Medications Current Medications Methylprednisolone Sodium Succinate (Solu-Medrol) 60 mg Q8 IV Last administered on 02/28/17 05:44; Admin Dose 60 MG; Start 02/23/17 at 14:00 Pantoprazole 40 mg 40 mg DAILY@06 PO Last administered on 02/28/17 05:44; Admin Dose 40 MG; Start 02/24/17 at 06:00 Ferric Sodium Gluconate Complex/ Sodium Chloride (Ferrlecit/NS) 110 ml @ 110 mls/hr Q24H IVPB Last administered on 02/27/17 12:01; Admin Dose 110 MLS/HR; Start 02/24/17 at 10:00; Stop 02/28/17 at 10:59 Acetaminophen (Tylenol Tab) 325 mg Q6H PRN PO PAIN AND OR ELEVATED TEMP Last administered on 02/28/17 05:44; Admin Dose 325 MG; Start 02/24/17 at 09:00 Trimethoprim/ Sulfamethoxazole (Bactrim (Ss)) 1 tab MONWEDFRI PO Last administered on 02/26/17 10:49; Admin Dose 1 TAB; Start 02/24/17 at 09:30 IV Flush (NS 10 ml) 10 ml PRN PRN IV IV PROTOCOL; Start 02/25/17 at 19:00 Epoetin Carroll (Epogen (Oncology)) 60,000 units Th@17 SC Last administered on 02/27 17:10; Admin Dose 60,000 UNITS; Start 02/27/17 at 12:00 Mycophenolate Mofetil (Cellcept) 1,000 mg BID PO Last administered on 02/27/17 21:13; Admin Dose 1,000 MG; Start 02/27/17 at 21:00 Folic Acid (Folic Acid) 1 mg DAILY PO ; Start 02/28/17 at 09:00 Multivitamins Therapeutic (Theragran) 1 tab DAILY PO ; Start 02/28/17 at 09:00 PAMELA BENDER M.D. Feb 28, 2017 09:25
[2017-02-28] MEDS: MULTIVITAMINS THERAPEUTIC TAB PO SCH (10:08)
[2017-02-28] MEDS: FOLIC ACID 1 MG TAB PO SCH (10:08)
[2017-02-28] MEDS: MYCOPHENOLATE 250 MG CAP PO SCH ×2 (10:13→21:19)
[2017-02-28] MEDS: TRIMETHOPRIM/SULFAMETHOX (SS) TAB PO SCH (13:01)
[2017-02-28] MEDS: SOD FERRIC GLUC COMPLX 125 MG in SOD CHLORIDE 0.9% 100 ML IVPB SCH (13:01)
--- NOTE | 2017-02-28 13:31 | PN ---
Date/Time of Note Date/Time of Note DATE: 02/28/17 TIME: 13:30 Assessment/Plan VTE Prophylaxis VTE Prophylaxis Intervention: other Lines/Catheters IV [facility] Type (from [facility]): PICC Line Central line still needed: Yes Urinary Cath still in place: No Assessment/Plan Chief Complaint/Hosp Course 1) anemia - treatment per hem/Onc - monitor CBC Problems: Subjective 24 Hr Interval Summary Free Text/Dictation Patient has no complaints Exam/Review of Systems Vital Signs Vitals Vital Signs Date Time Temp Pulse Resp B/P Pulse Ox O2 Delivery O2 Flow Rate FiO2 02/28/17 12:34 104 02/28/17 11:15 98.8 17 105/56 97 02/27/17 01:59 Room Air 02/27/17 00:00 2.0 Intake and Output 02/27/17 02/27/17 02/28/17 15:00 23:00 07:00 Intake Total 110 ml 950 ml 375 ml Balance 110 ml 950 ml 375 ml Exam Constitutional: well developed Head: atraumatic, normocephalic Neck: supple Respiratory: clear to auscultation Cardiovascular: regular rate and rhythm Gastrointestinal: non-tender, soft Extremities: normal pulses Results Result Diagram: 02/27/1719 02/27/17 0619 Medications Medications Current Medications Methylprednisolone Sodium Succinate (Solu-Medrol) 60 mg Q8 IV Last administered on 02/28/17 05:44; Admin Dose 60 MG; Start 02/23/17 at 14:00 Pantoprazole (Protonix Tab) 40 mg DAILY@06 PO Last administered on 02/28/17 05: 44; Admin Dose 40 MG; Start 02/24/17 at 06:00 Acetaminophen (Tylenol Tab) 325 mg Q6H PRN PO PAIN AND OR ELEVATED TEMP Last administered on 02/28/17 10:24; Admin Dose 325 MG; Start 02/24/17 at 09:00 Trimethoprim/ Sulfamethoxazole (Bactrim (Ss)) 1 tab MONWEDFRI PO Last administered on 02/28/17 13:01; Admin Dose 1 TAB; Start 02/24/17 at 09:30 IV Flush (NS 10 ml) 10 ml PRN PRN IV IV PROTOCOL; Start 02/25/17 at 19:00 Epoetin Carroll (Epogen (Oncology)) 60,000 units Th@17 SC Last administered on 02/27 17:10; Admin Dose 60,000 UNITS; Start 02/27/17 at 12:00 Mycophenolate Mofetil (Cellcept) 1,000 mg BID PO Last administered on 02/28/17 10:13; Admin Dose 1,000 MG; Start 02/27/17 at 21:00 Folic Acid (Folic Acid) 1 mg DAILY PO Last administered on 02/28/17 10:08; Admin Dose 1 MG; Start 02/28/17 at 09:00 Multivitamins Therapeutic (Theragran) 1 tab DAILY PO Last administered on 10:08; Admin Dose 1 TAB; Start 02/28/17 at 09:00 LUBA FERRARO Feb 28, 2017 13:31
[2017-02-28] MEDS ORDERED: ZOLPIDEM 5 MG TAB PO PRN (21:30)
[2017-03-01] VITALS (12 sets, daily range): BP systolic 106–114; BP diastolic 56–63; PULSE 93–112; RESP 16–18
[2017-03-01] MEDS: PANTOPRAZOLE (EC) 40 MG TAB PO SCH (05:32)
[2017-03-01] MEDS: ACETAMINOPHEN 325 MG TAB PO PRN ×2 (05:36→22:24)
[2017-03-01] MEDS: METHYLPREDNISOLONE 125 MG INJ IV SCH ×3 (05:36→22:23)
[2017-03-01 06:43] LABS: ABNORMAL IP MESSAGE 1; HEMATOCRIT 12.4 % (37.0-47.0); MEAN CORPUSCULAR HEMOGLOBIN 41.7 pg (29.0-33.0); MEAN CORPUSCULAR HGB CONC 34.7 g/dl (32.0-37.0); MEAN CORPUSCULAR VOLUME 120.4 fl (82.0-101.0); MEAN PLATELET VOLUME 11.3 fl (7.4-10.4); PLATELET COUNT 77 10^3/UL (140-415); RED BLOOD COUNT 1.03 10^6/ul (4.20-5.40); RED CELL DISTRIBUTION WIDTH 28.8 % (11.5-14.5); WHITE BLOOD COUNT 34.4 10^3/ul (4.8-10.8)
[2017-03-01 06:55] LABS: POSITIVE DIFF @See below
[2017-03-01 06:57] LABS: HEMOGLOBIN 4.3 g/dl (12.0-16.0)
[2017-03-01] MEDS: MULTIVITAMINS THERAPEUTIC TAB PO SCH (08:11)
[2017-03-01] MEDS: FOLIC ACID 1 MG TAB PO SCH (08:11)
[2017-03-01] MEDS: MYCOPHENOLATE 250 MG CAP PO SCH ×2 (08:11→20:45)
[2017-03-01 08:22] LABS: ERYTHROBLAST% (NRBC) (M) 237 % (0-0); LYMPHOCYTES # 3.1 10^3/ul (0.8-2.9); METAMYELOCYTES %M 2 % (0-0); MONOCYTES % (M) 3 % (0-11); NEUTROPHIL # 21.7 10^3/ul (1.6-7.5); PROMYELOCYTES #M 1 # (0-0); PROMYELOCYTES % (M) 3 % (0-0)
--- NOTE | 2017-03-01 11:45 | PN ---
Date/Time of Note Date/Time of Note DATE: 03/01/17 TIME: 11:44 Assessment/Plan VTE Prophylaxis VTE Prophylaxis Intervention: other Lines/Catheters IV Catheter Type (from Nrs): PICC Line Central line still needed: Yes Urinary Cath still in place: No Assessment/Plan Chief Complaint/Hosp Course 1) anemia - treatment per hem/Onc - monitor CBC Problems: Subjective 24 Hr Interval Summary Free Text/Dictation Patient feels weak Exam/Review of Systems Vital Signs Vitals Vital Signs Date Time Temp Pulse Resp B/P Pulse Ox O2 Delivery O2 Flow Rate FiO2 03/01/17 08:21 93 03/01/17 07:34 97.8 18 106/62 99 02/27/17 01:59 Room Air 02/27/17 00:00 2.0 Intake and Output 02/28/17 02/28/17 03/01/17 15:00 23:00 07:00 Intake Total 110 ml 900 ml 300 ml Balance 110 ml 900 ml 300 ml Exam Constitutional: well developed Head: atraumatic, normocephalic Neck: supple Respiratory: clear to auscultation Cardiovascular: regular rate and rhythm Gastrointestinal: non-tender, soft Results Result Diagram: 03/01/17 0520 02/27/17 0619 Results 24 hrs Laboratory Tests Test 03/01/17 05:20 White Blood Count 34.4 H Red Blood Count 1.03 L Hemoglobin 4.3 *L Hematocrit 12.4 L Mean Corpuscular Volume 120.4 H Mean Corpuscular Hemoglobin 41.7 H Mean Corpuscular Hemoglobin Concent 34.7 Red Cell Distribution Width 28.8 H Platelet Count 77 L Mean Platelet Volume 11.3 H Neutrophils % Segmented Neutrophils % (Manual) 63 Band Neutrophils % (Manual) 15 H Lymphocytes % Lymphocytes % (Manual) 9 L Monocytes % Monocytes % (Manual) 3 Eosinophils % Basophils % Metamyelocytes % (manual) 2 H Myelocytes % (Manual) 5.0 H Promyelocytes % (Manual) 3 H Nucleated Red Blood Cells % 237 H Neutrophils # 21.7 H Neutrophils # (Manual) 23.4 H Band Neutrophils # 5.1 H Absolute Lymphocytes (Manual) 3.0 H Lymphocytes # 3.1 H Monocytes # 1.0 H Absolute Monocytes (Manual) 1.0 H Eosinophils # Basophils # Metamyelocytes # 0.6 H Myelocytes # 1.7 H Promyelocytes # 1 H Nucleated Red Blood Cells # Medications Medications Current Medications Methylprednisolone Sodium Succinate (Solu-Medrol) 60 mg Q8 IV Last administered on 03/01/17 05:36; Admin Dose 60 MG; Start 02/23/17 at 14:00 Pantoprazole (Protonix Tab) 40 mg DAILY@06 PO Last administered on 03/01/17 05: 32; Admin Dose 40 MG; Start 02/24/17 at 06:00 Acetaminophen (Tylenol Tab) 325 mg Q6H PRN PO PAIN AND OR ELEVATED TEMP Last administered on 03/01/17 05:36; Admin Dose 325 MG; Start 02/24/17 at 09:00 Trimethoprim/ Sulfamethoxazole (Bactrim (Ss)) 1 tab MONWEDFRI PO Last administered on 02/28/17 13:01; Admin Dose 1 TAB; Start 02/24/17 at 09:30 IV Flush (NS 10 ml) 10 ml PRN PRN IV IV PROTOCOL; Start 02/25/17 at 19:00 Epoetin Carroll (Epogen (Oncology)) 60,000 units Th@17 SC Last administered on 02/27 17:10; Admin Dose 60,000 UNITS; Start 02/27/17 at 12:00 Mycophenolate Mofetil (Cellcept) 1,000 mg BID PO Last administered on 03/01/17 08:11; Admin Dose 1,000 MG; Start 02/27/17 at 21:00 Folic Acid (Folic Acid) 1 mg DAILY PO Last administered on 03/01/17 08:11; Admin Dose 1 MG; Start 02/28/17 at 09:00 Multivitamins Therapeutic (Theragran) 1 tab DAILY PO Last administered on 08:11; Admin Dose 1 TAB; Start 02/28/17 at 09:00 Zolpidem Tartrate (Ambien) 5 mg HS PRN PO INSOMNIA Last administered on 22:08; Admin Dose 5 MG; Start 02/28/17 at 21:30 LUBA FERRARO Mar 01, 2017 11:45
[2017-03-01 15:00] LABS: % CRYOCRIT NONE DETECTED (NONE DETECTED)
[2017-03-02] VITALS (11 sets, daily range): BP systolic 104–123; BP diastolic 57–71; PULSE 86–113; RESP 16–18
[2017-03-02] MEDS: METHYLPREDNISOLONE 125 MG INJ IV SCH ×3 (05:21→21:27)
[2017-03-02] MEDS: PANTOPRAZOLE (EC) 40 MG TAB PO SCH (05:21)
[2017-03-02] MEDS: FOLIC ACID 1 MG TAB PO SCH (08:35)
[2017-03-02] MEDS: MULTIVITAMINS THERAPEUTIC TAB PO SCH (08:35)
[2017-03-02] MEDS: MYCOPHENOLATE 250 MG CAP PO SCH ×2 (08:38→21:27)
[2017-03-02] MEDS: ACETAMINOPHEN 325 MG TAB PO PRN (11:27)
--- NOTE | 2017-03-02 11:45 | PN ---
Date/Time of Note Date/Time of Note DATE: 03/02/17 TIME: 11:44 Assessment/Plan VTE Prophylaxis VTE Prophylaxis Intervention: other Lines/Catheters IV Catheter Type (from Nrs): PICC Line Central line still needed: Yes Assessment/Plan Chief Complaint/Hosp Course 1) anemia - treatment per hem/Onc - monitor CBC Problems: Subjective 24 Hr Interval Summary Free Text/Dictation Feels weak but otherwise doing well Exam/Review of Systems Vital Signs Vitals Vital Signs Date Time Temp Pulse Resp B/P Pulse Ox O2 Delivery O2 Flow Rate FiO2 03/02/17 11:38 98.2 97 18 107/58 97 02/27/17 01:59 Room Air 02/27/17 00:00 2.0 Intake and Output 03/01/17 03/01/17 03/02/17 15:00 23:00 07:00 Intake Total 720 ml 200 ml Balance 720 ml 200 ml Exam Constitutional: well developed Head: atraumatic, normocephalic Neck: supple Respiratory: clear to auscultation Cardiovascular: regular rate and rhythm Gastrointestinal: non-tender, soft Extremities: normal pulses Results Result Diagram: 03/01/17 0520 02/27/17 0619 Medications Medications Current Medications Methylprednisolone Sodium Succinate (Solu-Medrol) 60 mg Q8 IV Last administered on 03/02/17 05:21; Admin Dose 60 MG; Start 02/23/17 at 14:00 Pantoprazole (Protonix Tab) 40 mg DAILY@06 PO Last administered on 03/02/17 05: 21; Admin Dose 40 MG; Start 02/24/17 at 06:00 Acetaminophen (Tylenol Tab) 325 mg Q6H PRN PO PAIN AND OR ELEVATED TEMP Last administered on 03/02/17 11:27; Admin Dose 325 MG; Start 02/24/17 at 09:00 Trimethoprim/ Sulfamethoxazole (Bactrim (Ss)) 1 tab MONWEDFRI PO Last administered on 02/28/17 13:01; Admin Dose 1 TAB; Start 02/24/17 at 09:30 IV Flush (NS 10 ml) 10 ml PRN PRN IV IV PROTOCOL; Start 02/25/17 at 19:00 Epoetin Carroll (Epogen (Oncology)) 60,000 units Th@17 SC Last administered on 02/27 17:10; Admin Dose 60,000 UNITS; Start 02/27/17 at 12:00 Mycophenolate Mofetil (Cellcept) 1,000 mg BID PO Last administered on 03/02/17 08:38; Admin Dose 1,000 MG; Start 02/27/17 at 21:00 Folic Acid (Folic Acid) 1 mg DAILY PO Last administered on 03/02/17 08:35; Admin Dose 1 MG; Start 02/28/17 at 09:00 Multivitamins Therapeutic (Theragran) 1 tab DAILY PO Last administered on 08:35; Admin Dose 1 TAB; Start 02/28/17 at 09:00 Zolpidem Tartrate (Ambien) 5 mg HS PRN PO INSOMNIA Last administered on 22:08; Admin Dose 5 MG; Start 02/28/17 at 21:30 LBUA FERRARO Mar 02, 2017 11:45
[2017-03-02] MEDS ORDERED: HYDROCORTISONE 2.5% 20 GM CR TOP PRN (20:30)
[2017-03-03] VITALS (12 sets, daily range): BP systolic 104–115; BP diastolic 56–72; PULSE 88–112; RESP 17–20
[2017-03-03] MEDS: METHYLPREDNISOLONE 125 MG INJ IV SCH ×3 (06:24→21:14)
[2017-03-03] MEDS: PANTOPRAZOLE (EC) 40 MG TAB PO SCH (06:24)
[2017-03-03] MEDS: MYCOPHENOLATE 250 MG CAP PO SCH ×2 (08:59→21:13)
[2017-03-03] MEDS: FOLIC ACID 1 MG TAB PO SCH (08:59)
[2017-03-03] MEDS: MULTIVITAMINS THERAPEUTIC TAB PO SCH (08:59)
--- NOTE | 2017-03-03 09:10 | CONS ---
Date/Time of Note Date/Time of Note DATE: 03/03/17 TIME: 09:07 Assessment/Plan Assessment/Plan Chief Complaint/Hosp Course 31 y/o with cold agglutinan chronic hemolytic anemia with response to steroids in the past but unable to maintain her Hg once the steroid was tapered. 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 response to steroids but whenever the dose of steroids are tapered, she develops symptomatic anemia,. Since she is Jehovah witness, she declines any blood products. Of note, Previous workup 12/11 did not show any abnormalities in peripheral blood cytogenetics, BCR ABL and had negative PNH workup. Pt was given Rituxan yesterday but her Hg continues to drop. Given the complexity of her case, I would like to transfer her to [facility] for higher level of care Problems: (1) Autoimmune hemolytic anemia, cold antibody type Status: Acute Comment: -pt has col agglutinin disease. she is s/p IVIG and currently on steroids -continue Solumedrol 60mg IV q 8 -s/p Rituxan 375mg/m2 today to be given weekly x 4 weeks. next dose to be given friday. will write order -Cold Agglutinin titer at 1:4 -f/u cryoglobulin level -complement shows decrease of C3 -f/u retic count -continue Cellcept 1000mg BID to help with hemolysis -SPEP and Serum ESTHER did not show evidence of monoclonal protein -continue folate and MVI (2) Refusal of blood transfusions as patient is Yazidi Status: Chronic Comment: -will need to increase EPO to 60,000 unit q week. this was given last night -Ferrlecit x 5 days have continued (3) Back pain Status: Chronic Comment: -Tylenol po q 6 hours prn ordered Qualifiers: Back pain location: low back pain Chronicity: chronic Back pain laterality: right (4) Weakness generalized Status: Chronic Comment: -secondary to her anemia. -monitor sx as Hg rises. Problems: (1) Shingles rash Status: Acute Comment: rash in left buttock -will start Acyclovir 400mg TID Qualifiers: Herpes zoster complications: without complications Qualified Code: B02.9 - Herpes zoster without complication Consultation Date/Type/Reason Admit Date/Time Feb 21, 2017 at 17:22 Initial Consult Date 02/22/17 Type of Consultation: Hematology Reason for Consultation autoimmune hemolytic anemia Referring Provider: LUBA FERRARO 24 HR Interval Summary Free Text/Dictation pt still feel weak. she developed a small pruritic rash on her left buttock over the weekend. she is in isolation for potential HSV infection Exam/Review of Systems Vital Signs Vitals Vital Signs Date Time Temp Pulse Resp B/P Pulse Ox O2 Delivery O2 Flow Rate FiO2 03/03/17 08:20 88 03/03/17 07:26 98.9 18 104/56 94 Intake and Output 03/02/17 03/02/17 03/03/17 15:00 23:00 07:00 Intake Total 1000 ml 450 ml Balance 1000 ml 450 ml Exam Constitutional: alert, oriented Psych: no complaints Head: atraumatic, normocephalic Eyes: nl conjunctiva ENMT: nl external ears & nose Neck: non-tender, supple Respiratory: clear to auscultation, normal air movement Cardiovascular: regular rate and rhythm Gastrointestinal: soft Musculoskeletal: nl extremities to inspection, nl gait and stance Extremities: normal pulses Results Result Diagram: 03/01/17 0520 02/27/17 0619 Medications Medications Current Medications Methylprednisolone Sodium Succinate (Solu-Medrol) 60 mg Q8 IV Last administered on 03/03/17 06:24; Admin Dose 60 MG; Start 02/23/17 at 14:00 Pantoprazole (Protonix Tab) 40 mg DAILY@06 PO Last administered on 03/03/17 06: 24; Admin Dose 40 MG; Start 02/24/17 at 06:00 Acetaminophen (Tylenol Tab) 325 mg Q6H PRN PO PAIN AND OR ELEVATED TEMP Last administered on 03/02/17 11:27; Admin Dose 325 MG; Start 02/24/17 at 09:00 Trimethoprim/ Sulfamethoxazole (Bactrim (Ss)) 1 tab MONWEDFRI PO Last administered on 02/28/17 13:01; Admin Dose 1 TAB; Start 02/24/17 at 09:30 IV Flush (NS 10 ml) 10 ml PRN PRN IV IV PROTOCOL; Start 02/25/17 at 19:00 Epoetin Carroll (Epogen (Oncology)) 60,000 units Th@17 SC Last administered on 02/27 17:10; Admin Dose 60,000 UNITS; Start 02/27/17 at 12:00 Mycophenolate Mofetil (Cellcept) 1,000 mg BID PO Last administered on 03/03/17 08:59; Admin Dose 1,000 MG; Start 02/27/17 at 21:00 Folic Acid (Folic Acid) 1 mg DAILY PO Last administered on 03/03/17 08:59; Admin Dose 1 MG; Start 02/28/17 at 09:00 Multivitamins Therapeutic (Theragran) 1 tab DAILY PO Last administered on 08:59; Admin Dose 1 TAB; Start 02/28/17 at 09:00 Zolpidem Tartrate 5 mg 5 mg HS PRN PO INSOMNIA Last administered on 02/28/17 22 :08; Admin Dose 5 MG; Start 02/28/17 at 21:30 Ferric Sodium Gluconate Complex/ Sodium Chloride (Ferrlecit/NS) 110 ml @ 110 mls/hr Q24H IVPB ; Start 03/03/17 at 10:30; Stop 03/07/17 at 11:29 Acyclovir (Zovirax) 400 mg TID PO ; Start 03/03/17 at 09:00 PAMELA BENDER M.D. Mar 03, 2017 09:09
[2017-03-03 10:32] LABS: ABNORMAL IP MESSAGE 1; MEAN CORPUSCULAR HEMOGLOBIN 42.6 pg (29.0-33.0); MEAN CORPUSCULAR HGB CONC 34.9 g/dl (32.0-37.0); MEAN CORPUSCULAR VOLUME 122.1 fl (82.0-101.0); MEAN PLATELET VOLUME 11.6 fl (7.4-10.4); NUCLEATED RED BLOOD CELLS% 265.7 /100WBC (0.0-0.0); RED BLOOD COUNT 1.22 10^6/ul (4.20-5.40); RED CELL DISTRIBUTION WIDTH 31.1 % (11.5-14.5); WHITE BLOOD COUNT 35.4 10^3/ul (4.8-10.8)
[2017-03-03] MEDS: SOD FERRIC GLUC COMPLX 125 MG in SOD CHLORIDE 0.9% 100 ML IVPB SCH (10:36)
[2017-03-03 10:44] LABS: HEMATOCRIT 14.9 % (37.0-47.0); HEMOGLOBIN 5.2 g/dl (12.0-16.0); PLATELET COUNT 95 10^3/UL (140-415); POSITIVE DIFF @See below
[2017-03-03 11:53] LABS: ANISOCYTOSIS 3+ (0-0); ERYTHROBLAST% (NRBC) (M) 259 % (0-0); METAMYELOCYTES %M 6 % (0-0); MICROCYTOSIS 3+ (0-0); MONOCYTES % (M) 3 % (0-11); OVALOCYTES 1+ (0-0); PLATELET ESTIMATE DECREASED; POLYCHROMASIA 3+ (0-0)
[2017-03-03] MEDS: TRIMETHOPRIM/SULFAMETHOX (SS) TAB PO SCH (12:23)
[2017-03-03] MEDS: ACYCLOVIR 400 MG TAB PO SCH ×3 (12:23→21:14)
--- NOTE | 2017-03-03 14:20 | PN ---
Date/Time of Note Date/Time of Note DATE: 03/03/17 TIME: 14:14 Assessment/Plan VTE Prophylaxis VTE Prophylaxis Intervention: SCD's Lines/Catheters [facility] C[facility] Type [facility] PICC Line Central line still needed: Yes Urinary Cath still in place: No Assessment/Plan Chief Complaint/Hosp Course Patient's complains of generalized weakness weakness however stated she feels better today. Hemoglobin is increased to 5.2. Problems: Assessment/Plan - Autoimmune hemolytic anemia. The patient is a Gnosticist and cannot get a blood transfusion. Dr. Pak is following in hematology consultation. - Possible shingles, continue acyclovir, isolation. Further recommendations based on clinical course. Plan of care discussed with Dr. Will. Exam/Review of Systems Vital Signs Vitals Vital Signs Date Time Temp Pulse Resp B/P Pulse Ox O2 Delivery O2 Flow Rate FiO2 03/03/17 12:34 108 03/03/17 11:21 98.4 20 108/57 97 Intake and Output 03/02/17 03/02/17 03/03/17 15:00 23:00 07:00 Intake Total 1000 ml 450 ml Balance 1000 ml 450 ml Exam Constitutional: alert, oriented Head: normocephalic Eyes: nl conjunctiva Neck: supple Respiratory: normal air movement Cardiovascular: nl pulses Gastrointestinal: non-tender, soft Musculoskeletal: nl extremities to inspection Extremities: normal pulses Neurological: nl mental status Results Result Diagram: 03/03/17 0934 02/27/17 0619 Results 24 hrs Laboratory Tests Test 03/03/17 09:34 White Blood Count 35.4 H Red Blood Count 1.22 L Hemoglobin 5.2 #*L Hematocrit 14.9 #L Mean Corpuscular Volume 122.1 H Mean Corpuscular Hemoglobin 42.6 H Mean Corpuscular Hemoglobin Concent 34.9 Red Cell Distribution Width 31.1 H Platelet Count 95 #L Mean Platelet Volume 11.6 H Neutrophils % Segmented Neutrophils % (Manual) 74 Band Neutrophils % (Manual) 6 H Lymphocytes % Lymphocytes % (Manual) 6 L Monocytes % Monocytes % (Manual) 3 Eosinophils % Basophils % Metamyelocytes % (manual) 6 H Nucleated Red Blood Cells % 259 H Neutrophils # Neutrophils # (Manual) 26.9 H Band Neutrophils # 2.1 H Absolute Lymphocytes (Manual) 2.1 Lymphocytes # Monocytes # Absolute Monocytes (Manual) 1.0 H Eosinophils # Basophils # Metamyelocytes # 2.1 H Nucleated Red Blood Cells # Smudge Cells % 9 H Platelet Estimate DECREASED Polychromasia 3+ Anisocytosis 3+ Microcytosis 3+ Macrocytosis 2+ Ovalocytes 1+ Medications Medications Current Medications Methylprednisolone Sodium Succinate (Solu-Medrol) 60 mg Q8 IV Last administered on 03/03/17 12:23; Admin Dose 60 MG; Start 02/23/17 at 14:00 Pantoprazole (Protonix Tab) 40 mg DAILY@06 PO Last administered on 03/03/17 06: 24; Admin Dose 40 MG; Start 02/24/17 at 06:00 Acetaminophen (Tylenol Tab) 325 mg Q6H PRN PO PAIN AND OR ELEVATED TEMP Last administered on 03/02/17 11:27; Admin Dose 325 MG; Start 02/24/17 at 09:00 Trimethoprim/ Sulfamethoxazole (Bactrim (Ss)) 1 tab MONWEDFRI PO Last administered on 03/03/17 12:23; Admin Dose 1 TAB; Start 02/24/17 at 09:30 IV Flush (NS 10 ml) 10 ml PRN PRN IV IV PROTOCOL; Start 02/25/17 at 19:00 Epoetin Carroll (Epogen (Oncology)) 60,000 units Th@17 SC Last administered on 02/27 17:10; Admin Dose 60,000 UNITS; Start 02/27/17 at 12:00 Mycophenolate Mofetil (Cellcept) 1,000 mg BID PO Last administered on 03/03/17 08:59; Admin Dose 1,000 MG; Start 02/27/17 at 21:00 Folic Acid (Folic Acid) 1 mg DAILY PO Last administered on 03/03/17 08:59; Admin Dose 1 MG; Start 02/28/17 at 09:00 Multivitamins Therapeutic (Theragran) 1 tab DAILY PO Last administered on 08:59; Admin Dose 1 TAB; Start 02/28/17 at 09:00 Zolpidem Tartrate 5 mg 5 mg HS PRN PO INSOMNIA Last administered on 02/28/17 22 :08; Admin Dose 5 MG; Start 02/28/17 at 21:30 Ferric Sodium Gluconate Complex/ Sodium Chloride (Ferrlecit/NS) 110 ml @ 110 mls/hr Q24H IVPB Last administered on 03/03/17 10:36; Admin Dose 110 MLS/HR; Start 03/03/17 at 10:30; Stop 03/07/17 at 11:29 Acyclovir (Zovirax) 400 mg TID PO Last administered on 03/03/17 12:23; Admin Dose 400 MG; Start 03/03/17 at 09:00 SMITH BUSTAMANTE Mar 03, 2017 14:20
[2017-03-03] MEDS: ACETAMINOPHEN 325 MG TAB PO PRN (21:16)
[2017-03-03] MEDS ORDERED: AL HYDROX/MG HYDROX/SIMETH 30 ML CUP PO PRN (22:00)
[2017-03-04] VITALS (12 sets, daily range): BP systolic 98–109; BP diastolic 57–72; PULSE 87–115; RESP 17–18
[2017-03-04] MEDS: METHYLPREDNISOLONE 125 MG INJ IV SCH ×3 (05:43→21:51)
[2017-03-04] MEDS: PANTOPRAZOLE (EC) 40 MG TAB PO SCH (05:43)
[2017-03-04 07:16] LABS: ABNORMAL IP MESSAGE 1; HEMATOCRIT 14.9 % (37.0-47.0); MEAN CORPUSCULAR HEMOGLOBIN 43.6 pg (29.0-33.0); MEAN CORPUSCULAR HGB CONC 34.2 g/dl (32.0-37.0); MEAN CORPUSCULAR VOLUME 127.4 fl (82.0-101.0); MEAN PLATELET VOLUME 11.6 fl (7.4-10.4); NUCLEATED RED BLOOD CELLS% 305.7 /100WBC (0.0-0.0); PLATELET COUNT 87 10^3/UL (140-415); RED BLOOD COUNT 1.17 10^6/ul (4.20-5.40); RED CELL DISTRIBUTION WIDTH 31.9 % (11.5-14.5); WHITE BLOOD COUNT 29.2 10^3/ul (4.8-10.8)
[2017-03-04 07:25] LABS: POSITIVE DIFF @See below
[2017-03-04 07:30] LABS: HEMOGLOBIN 5.1 g/dl (12.0-16.0)
[2017-03-04 07:32] LABS: CALCIUM 8.6 mg/dl (8.4-10.2); CREATININE 0.54 mg/dl (0.44-1.00); POTASSIUM 4.4 mmol/L (3.5-5.1)
[2017-03-04] MEDS: ACYCLOVIR 400 MG TAB PO SCH ×3 (09:08→21:51)
[2017-03-04] MEDS: MULTIVITAMINS THERAPEUTIC TAB PO SCH (09:08)
[2017-03-04] MEDS: FOLIC ACID 1 MG TAB PO SCH (09:08)
[2017-03-04] MEDS: MYCOPHENOLATE 250 MG CAP PO SCH ×2 (09:09→21:51)
[2017-03-04 10:18] LABS: ANISOCYTOSIS 3+ (0-0); BASOPHILS % (M) 1 % (0-2); ERYTHROBLAST% (NRBC) (M) 288 % (0-0); GIANT THROMBO% (M) 2 % (0-0); MICROCYTOSIS 3+ (0-0); POIKILOCYTOSIS 3+ (0-0); POLYCHROMASIA 3+ (0-0)
[2017-03-04] MEDS: SOD FERRIC GLUC COMPLX 125 MG in SOD CHLORIDE 0.9% 100 ML IVPB SCH (10:50)
[2017-03-04] MEDS: ONDANSETRON 4 MG INJ IV PRN (10:51)
[2017-03-04] MEDS ORDERED: DIPHENHYDRAMINE 50 MG INJ IV ONE (11:00)
[2017-03-04] MEDS: SOD CHLORIDE 0.9% 1,000 ML IV SCH (11:00)
--- NOTE | 2017-03-04 13:36 | CONS ---
Date/Time of Note Date/Time of Note DATE: 03/04/17 TIME: 13:34 Assessment/Plan Assessment/Plan Chief Complaint/Hosp Course 31 y/o with cold agglutinan chronic hemolytic anemia with response to steroids in the past but unable to maintain her Hg once the steroid was tapered. 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 Pt is a Zoroastrianism and does not accept blood transfusion. response to steroids but whenever the dose of steroids are tapered, she develops symptomatic anemia,. Since she is Jehovah witness, she declines any blood products. Of note, Previous workup 12/11 did not show any abnormalities in peripheral blood cytogenetics, BCR ABL and had negative PNH workup. Pt was given Rituxan last Friday. Hg slowly rising Problems: (1) Autoimmune hemolytic anemia, cold antibody type Status: Acute Comment: -pt has col agglutinin disease. she is s/p IVIG and currently on steroids -continue Solumedrol 60mg IV q 8 -s/p Rituxan 375mg/m2 today to be given weekly x 4 weeks. next dose to be given Friday. will write order -Cold Agglutinin titer at 1:4 -f/u cryoglobulin level -complement shows decrease of C3 -f/u retic count -continue Cellcept 1000mg BID to help with hemolysis -SPEP and Serum ESTHER did not show evidence of monoclonal protein -continue folate and MVI (2) Refusal of blood transfusions as patient is Restorationism Status: Chronic Comment: -will need to increase EPO to 60,000 unit q week. this was given last night -Ferrlecit x 5 days have continued (3) Back pain Status: Chronic Comment: -Tylenol po q 6 hours prn ordered Qualifiers: Back pain location: low back pain Chronicity: chronic Back pain laterality: right (4) Weakness generalized Status: Chronic Comment: -secondary to her anemia. -monitor sx as Hg rises. Problems: Consultation Date/Type/Reason Admit Date/Time Feb 21, 2017 at 17:22 Initial Consult Date 02/22/17 Type of Consultation: Hematology Reason for Consultation hemolytic anemia Referring Provider: LUBA FERRARO 24 HR Interval Summary Free Text/Dictation pt feels slightly better. Hg up Exam/Review of Systems Vital Signs Vitals Vital Signs Date Time Temp Pulse Resp B/P Pulse Ox O2 Delivery O2 Flow Rate FiO2 03/04/17 12:27 111 03/04/17 12:24 98.1 18 107/58 97 Intake and Output 03/03/17 03/03/17 03/04/17 15:00 23:00 07:00 Intake Total 950 ml 550 ml Balance 950 ml 550 ml Exam Constitutional: alert, oriented, other (fatigue) Psych: no complaints Head: normocephalic Eyes: nl conjunctiva ENMT: nl external ears & nose Neck: non-tender, supple Respiratory: clear to auscultation, normal air movement Cardiovascular: regular rate and rhythm Gastrointestinal: soft Musculoskeletal: nl extremities to inspection, nl gait and stance Extremities: normal pulses Results Result Diagram: 03/04/17 0629 03/04/17 0630 Results 24 hrs Laboratory Tests Test 03/04/17 06:29 03/04/17 06:30 White Blood Count 29.2 H Red Blood Count 1.17 L Hemoglobin 5.1 *L Hematocrit 14.9 L Mean Corpuscular Volume 127.4 H Mean Corpuscular Hemoglobin 43.6 H Mean Corpuscular Hemoglobin Concent 34.2 Red Cell Distribution Width 31.9 H Platelet Count 87 L Mean Platelet Volume 11.6 H Neutrophils % Segmented Neutrophils % (Manual) 53 Band Neutrophils % (Manual) 11 H Lymphocytes % Lymphocytes % (Manual) 35 Monocytes % Eosinophils % Basophils % Basophils % (Manual) 1 Nucleated Red Blood Cells % 288 H Neutrophils # Neutrophils # (Manual) 16.4 H Band Neutrophils # 3.2 H Absolute Lymphocytes (Manual) 10.2 H Lymphocytes # Monocytes # Eosinophils # Basophils # Basophils # (Manual) 0.2 H Nucleated Red Blood Cells # Smudge Cells % 1 H Thrombocytosis 2 H Polychromasia 3+ Poikilocytosis 3+ Anisocytosis 3+ Microcytosis 3+ Sodium Level 140 Potassium Level 4.4 Chloride Level 95 L Carbon Dioxide Level 32 H Anion Gap 17 H Blood Urea Nitrogen 22 H Creatinine 0.54 Glucose Level 89 Calcium Level 8.6 Medications Medications Current Medications Methylprednisolone Sodium Succinate (Solu-Medrol) 60 mg Q8 IV Last administered on 03/04/17 05:43; Admin Dose 60 MG; Start 02/23/17 at 14:00 Pantoprazole (Protonix Tab) 40 mg DAILY@06 PO Last administered on 03/04/17 05: 43; Admin Dose 40 MG; Start 02/24/17 at 06:00 Acetaminophen (Tylenol Tab) 325 mg Q6H PRN PO PAIN AND OR ELEVATED TEMP Last administered on 03/03/17 21:16; Admin Dose 325 MG; Start 02/24/17 at 09:00 Trimethoprim/ Sulfamethoxazole (Bactrim (Ss)) 1 tab MONWEDFRI PO Last administered on 03/03/17 12:23; Admin Dose 1 TAB; Start 02/24/17 at 09:30 IV Flush (NS 10 ml) 10 ml PRN PRN IV IV PROTOCOL; Start 02/25/17 at 19:00 Epoetin Carroll (Epogen (Oncology)) 60,000 units Th@17 SC Last administered on 02/27 17:10; Admin Dose 60,000 UNITS; Start 02/27/17 at 12:00 Mycophenolate Mofetil (Cellcept) 1,000 mg BID PO Last administered on 03/04/17 09:09; Admin Dose 1,000 MG; Start 02/27/17 at 21:00 Folic Acid (Folic Acid) 1 mg DAILY PO Last administered on 03/04/17 09:08; Admin Dose 1 MG; Start 02/28/17 at 09:00 Multivitamins Therapeutic (Theragran) 1 tab DAILY PO Last administered on 09:08; Admin Dose 1 TAB; Start 02/28/17 at 09:00 Zolpidem Tartrate 5 mg 5 mg HS PRN PO INSOMNIA Last administered on 02/28/17 22 :08; Admin Dose 5 MG; Start 02/28/17 at 21:30 Ferric Sodium Gluconate Complex/ Sodium Chloride (Ferrlecit/NS) 110 ml @ 110 mls/hr Q24H IVPB Last administered on 03/04/17 10:50; Admin Dose 110 MLS/HR; Start 03/03/17 at 10:30; Stop 03/07/17 at 11:29 Acyclovir (Zovirax) 400 mg TID PO Last administered on 03/04/17 09:08; Admin Dose 400 MG; Start 03/03/17 at 09:00 Al Hydrox/Mg Hydrox/Simethicone (Mag-Al Plus) 30 ml Q4H PRN PO GASTROINTESTINAL UPSET; Start 8/7/17 at 22:00 Ondansetron HCl 4 mg 4 mg Q6H PRN IV NAUSEA AND/OR VOMITING Last administered on 03/04/17t 10:51; Admin Dose 4 MG; Start 03/03/17 at 22:00 Sodium Chloride 1,000 ml @ 75 mls/hr [id number] IV ; Start 03/04/17 at 11:00 Rituximab/ Rituximab/Sodium Chloride (Rituxan/Rituxan/ NS) 250 ml @ 0 mls/hr ONCE ONCE IV ; Start 03/05/17 at 11:30; Stop 03/05/17 at 11:31 Methylprednisolone Sodium Succinate (Solu-Medrol) 60 mg Q2H PRN IV REACTIONS; Start 03/05/17 at 12:00; Stop 03/05/17 at 23:45 Meperidine HCl (Demerol) 50 mg Q2H PRN IV REACTION; Start 03/05/17 at 12:00; Stop 03/05/17 at 23:45 Diphenhydramine HCl (Benadryl) 50 mg Q2H PRN IV ALLERGIC REACTION; Start at 12:00; Stop 03/05/17 at 23:45 PAMELA BENDER M.D. Mar 04, 2017 13:36
--- NOTE | 2017-03-04 15:27 | PN ---
Date/Time of Note Date/Time of Note DATE: 03/04/17 TIME: 15:25 Assessment/Plan VTE Prophylaxis VTE Prophylaxis Intervention: SCD's Lines/Catheters [facility] ([facility] PICC Line Central line still needed: Yes Urinary Cath still in place: No Assessment/Plan Chief Complaint/Hosp Course Patient denies any pain denies any shortness of breath denies any chest pain, continues to have episodes of tachycardia. Assessment/Plan - Autoimmune hemolytic anemia. The patient is a Episcop[employer] and cannot get a blood transfusion. Dr. Pak is following in hematology consultation. - Possible shingles, continue acyclovir, isolation. Further recommendations based on clinical course. Plan of care discussed with Dr. Will. Problems: Exam/Review of Systems Vital Signs Vitals Vital Signs Date Time Temp Pulse Resp B/P Pulse Ox O2 Delivery O2 Flow Rate FiO2 03/04/17 12:27 111 03/04/17 12:24 98.1 18 107/58 97 Intake and Output 03/03/17 03/03/17 03/04/17 15:00 23:00 07:00 Intake Total 950 ml 550 ml Balance 950 ml 550 ml Exam Constitutional: alert, oriented Neck: supple Respiratory: normal air movement Cardiovascular: nl pulses Gastrointestinal: non-tender, soft Extremities: normal pulses Neurological: nl mental status Skin: other (Left buttocks rash) Results Result Diagram: 03/04/17 0629 03/04/17 0630 Results 24 hrs Laboratory Tests Test 03/04/17 06:29 03/04/17 06:30 White Blood Count 29.2 H Red Blood Count 1.17 L Hemoglobin 5.1 *L Hematocrit 14.9 L Mean Corpuscular Volume 127.4 H Mean Corpuscular Hemoglobin 43.6 H Mean Corpuscular Hemoglobin Concent 34.2 Red Cell Distribution Width 31.9 H Platelet Count 87 L Mean Platelet Volume 11.6 H Neutrophils % Segmented Neutrophils % (Manual) 53 Band Neutrophils % (Manual) 11 H Lymphocytes % Lymphocytes % (Manual) 35 Monocytes % Eosinophils % Basophils % Basophils % (Manual) 1 Nucleated Red Blood Cells % 288 H Neutrophils # Neutrophils # (Manual) 16.4 H Band Neutrophils # 3.2 H Absolute Lymphocytes (Manual) 10.2 H Lymphocytes # Monocytes # Eosinophils # Basophils # Basophils # (Manual) 0.2 H Nucleated Red Blood Cells # Smudge Cells % 1 H Thrombocytosis 2 H Polychromasia 3+ Poikilocytosis 3+ Anisocytosis 3+ Microcytosis 3+ Sodium Level 140 Potassium Level 4.4 Chloride Level 95 L Carbon Dioxide Level 32 H Anion Gap 17 H Blood Urea Nitrogen 22 H Creatinine 0.54 Glucose Level 89 Calcium Level 8.6 Medications Medications Current Medications Methylprednisolone Sodium Succinate (Solu-Medrol) 60 mg Q8 IV Last administered on 03/04/17 13:39; Admin Dose 60 MG; Start 02/23/17 at 14:00 Pantoprazole (Protonix Tab) 40 mg DAILY@06 PO Last administered on 03/04/17 05: 43; Admin Dose 40 MG; Start 02/24/17 at 06:00 Acetaminophen (Tylenol Tab) 325 mg Q6H PRN PO PAIN AND OR ELEVATED TEMP Last administered on 03/03/17 21:16; Admin Dose 325 MG; Start 02/24/17 at 09:00 Trimethoprim/ Sulfamethoxazole (Bactrim (Ss)) 1 tab MONWEDFRI PO Last administered on 03/03/17 12:23; Admin Dose 1 TAB; Start 02/24/17 at 09:30 IV Flush (NS 10 ml) 10 ml PRN PRN IV IV PROTOCOL; Start 02/25/17 at 19:00 Epoetin Carroll (Epogen (Oncology)) 60,000 units Th@17 SC Last administered on 02/27 17:10; Admin Dose 60,000 UNITS; Start 02/27/17 at 12:00 Mycophenolate Mofetil (Cellcept) 1,000 mg BID PO Last administered on 03/04/17 09:09; Admin Dose 1,000 MG; Start 02/27/17 at 21:00 Folic Acid (Folic Acid) 1 mg DAILY PO Last administered on 03/04/17 09:08; Admin Dose 1 MG; Start 02/28/17 at 09:00 Multivitamins Therapeutic (Theragran) 1 tab DAILY PO Last administered on 09:08; Admin Dose 1 TAB; Start 02/28/17 at 09:00 Zolpidem Tartrate 5 mg 5 mg HS PRN PO INSOMNIA Last administered on 02/28/17 22 :08; Admin Dose 5 MG; Start 02/28/17 at 21:30 Ferric Sodium Gluconate Complex/ Sodium Chloride (Ferrlecit/NS) 110 ml @ 110 mls/hr Q24H IVPB Last administered on 03/04/17 10:50; Admin Dose 110 MLS/HR; Start 03/03/17 at 10:30; Stop 03/07/17 at 11:29 Acyclovir (Zovirax) 400 mg TID PO Last administered on 03/04/17 13:41; Admin Dose 400 MG; Start 03/03/17 at 09:00 Al Hydrox/Mg Hydrox/Simethicone (Mag-Al Plus) 30 ml Q4H PRN PO GASTROINTESTINAL UPSET; Start 03/03/17 at 22:00 Ondansetron HCl 4 mg 4 mg Q6H PRN IV NAUSEA AND/OR VOMITING Last administered on 03/04/17 10:51; Admin Dose 4 MG; Start 03/03/17 at 22:00 Sodium Chloride 1,000 ml @ 75 mls/hr [id number] IV ; Start 03/04/17 at 11:00 Rituximab/ Rituximab/Sodium Chloride (Rituxan/Rituxan/ NS) 250 ml @ 0 mls/hr ONCE ONCE IV ; Start 03/05/17 at 11:30; Stop 03/05/17 at 11:31 Methylprednisolone Sodium Succinate (Solu-Medrol) 60 mg Q2H PRN IV REACTIONS; Start 03/05/17 at 12:00; Stop 03/05/17 at 23:45 Meperidine HCl (Demerol) 50 mg Q2H PRN IV REACTION; Start 03/05/17 at 12:00; Stop 03/05/17 at 23:45 Diphenhydramine HCl (Benadryl) 50 mg Q2H PRN IV ALLERGIC REACTION; Start at 12:00; Stop 03/05/17 at 23:45 SMITH BUSTAMANTE Mar 04, 2017 15:27 Methylprednisolone Sodium Succinate (Solu-Medrol) 60 mg Q2H PRN IV REACTIONS; Start 03/05/17 at 12:00; Stop 03/05/17 at 23:45 Meperidine HCl (Demerol) 50 mg Q2H PRN IV REACTION; Start 03/05/17 at 12:00; Stop 03/05/17 at 23:45 Diphenhydramine HCl (Benadryl) 50 mg Q2H PRN IV ALLERGIC REACTION; Start at 12:00; Stop 03/05/17 at 23:45 SMITH BUSTAMANTE Mar 04, 2017 15:27
[2017-03-05] VITALS (23 sets, daily range): BP systolic 88–117; BP diastolic 45–67; PULSE 81–98; RESP 16–19
[2017-03-05] MEDS: SOD CHLORIDE 0.9% 1,000 ML IV SCH ×2 (00:20→13:40)
[2017-03-05] MEDS: METHYLPREDNISOLONE 125 MG INJ IV SCH ×3 (05:47→21:19)
[2017-03-05] MEDS: PANTOPRAZOLE (EC) 40 MG TAB PO SCH (05:47)
[2017-03-05] MEDS: MULTIVITAMINS THERAPEUTIC TAB PO SCH (08:56)
[2017-03-05] MEDS: MYCOPHENOLATE 250 MG CAP PO SCH ×2 (08:56→21:14)
[2017-03-05] MEDS: ACYCLOVIR 400 MG TAB PO SCH ×3 (08:56→21:20)
[2017-03-05] MEDS: FOLIC ACID 1 MG TAB PO SCH (08:57)
[2017-03-05] MEDS: ONDANSETRON 4 MG INJ IV PRN (10:43)
[2017-03-05] MEDS: SOD FERRIC GLUC COMPLX 125 MG in SOD CHLORIDE 0.9% 100 ML IVPB SCH (10:43)
[2017-03-05] MEDS ORDERED: ACETAMINOPHEN 325 MG TAB PO ONE (11:15)
[2017-03-05] MEDS ORDERED: RITUXIMAB IV ONE (11:30)
[2017-03-05] MEDS ORDERED: SOD CHLORIDE 0.9% IV ONE (11:30)
[2017-03-05] MEDS ORDERED: DIPHENHYDRAMINE 50 MG INJ IV PRN (12:00)
[2017-03-05] MEDS ORDERED: MEPERIDINE 50 MG INJ IV PRN (12:00)
[2017-03-05] MEDS ORDERED: METHYLPREDNISOLONE 125 MG INJ IV PRN (12:00)
[2017-03-05] MEDS: TRIMETHOPRIM/SULFAMETHOX (SS) TAB PO SCH (12:30)
--- NOTE | 2017-03-05 13:33 | PN ---
Date/Time of Note Date/Time of Note DATE: 03/05/17 TIME: 13:31 Assessment/Plan VTE Prophylaxis VTE Prophylaxis Intervention: SCD's Lines/Catheters IV [facility]ter Type (from [facility]): PICC Line Central line still needed: Yes Urinary Cath still in place: No Assessment/Plan Chief Complaint/Hosp Course Patient is receiving rituximab today, remains hemodynamically stable, continues to have generalized weakness. Assessment/Plan - Autoimmune hemolytic anemia. The patient is a [employer] and cannot get a blood transfusion. Dr. Pak is following in hematology consultation. - Possible shingles, continue acyclovir, isolation. Further recommendations based on clinical course. Plan of care discussed with Dr. Will. Problems: Exam/Review of Systems Vital Signs Vitals Vital Signs Date Time Temp Pulse Resp B/P Pulse Ox O2 Delivery O2 Flow Rate FiO2 03/05/17 12:45 98.2 90 16 103/57 99 Room Air Intake and Output 03/04/17 03/04/17 03/05/17 14:59 22:59 06:59 Intake Total 1710 ml 750 ml Balance 1710 ml 750 ml Exam Constitutional: alert Neck: supple Respiratory: normal air movement Cardiovascular: nl pulses Gastrointestinal: non-tender, soft Extremities: normal pulses Neurological: nl mental status Skin: other (Left buttocks rash) Results Result Diagram: 03/04/1762803/04/17 0630 Medications Medications Current Medications Methylprednisolone Sodium Succinate (Solu-Medrol) 60 mg Q8 IV Last administered on 03/05/17 05:47; Admin Dose 60 MG; Start 02/23/17 at 14:00 Pantoprazole (Protonix Tab) 40 mg DAILY@06 PO Last administered on 03/05/17 05: 47; Admin Dose 40 MG; Start 02/24/17 at 06:00 Acetaminophen (Tylenol Tab) 325 mg Q6H PRN PO PAIN AND OR ELEVATED TEMP Last administered on 03/03/17 21:16; Admin Dose 325 MG; Start 02/24/17 at 09:00 Trimethoprim/ Sulfamethoxazole (Bactrim (Ss)) 1 tab MONWEDFRI PO Last administered on 03/05/17 12:30; Admin Dose 1 TAB; Start 02/24/17 at 09:30 IV Flush (NS 10 ml) 10 ml PRN PRN IV IV PROTOCOL; Start 02/25/17 at 19:00 Epoetin Carroll (Epogen (Oncology)) 60,000 units Th@17 SC Last administered on 02/27 17:10; Admin Dose 60,000 UNITS; Start 02/27/17 at 12:00 Mycophenolate Mofetil (Cellcept) 1,000 mg BID PO Last administered on 03/05/17 08:56; Admin Dose 1,000 MG; Start 02/27/17 at 21:00 Folic Acid (Folic Acid) 1 mg DAILY PO Last administered on 03/05/17 08:57; Admin Dose 1 MG; Start 02/28/17 at 09:00 Multivitamins Therapeutic (Theragran) 1 tab DAILY PO Last administered on 08:56; Admin Dose 1 TAB; Start 02/28/17 at 09:00 Zolpidem Tartrate 5 mg 5 mg HS PRN PO INSOMNIA Last administered on 02/28/17 22 :08; Admin Dose 5 MG; Start 02/28/17 at 21:30 Ferric Sodium Gluconate Complex/ Sodium Chloride (Ferrlecit/NS) 110 ml @ 110 mls/hr Q24H IVPB Last administered on 03/05/17 10:43; Admin Dose 110 MLS/HR; Start 03/03/17 at 10:30; Stop 03/07/17 at 11:29 Acyclovir (Zovirax) 400 mg TID PO Last administered on 03/05/17 12:30; Admin Dose 400 MG; Start 03/03/17 at 09:00 Al Hydrox/Mg Hydrox/Simethicone (Mag-Al Plus) 30 ml Q4H PRN PO GASTROINTESTINAL UPSET; Start 03/03/17 at 22:00 Ondansetron HCl 4 mg 4 mg Q6H PRN IV NAUSEA AND/OR VOMITING Last administered on 03/05/17 10:43; Admin Dose 4 MG; Start 03/03/17 at 22:00 Sodium Chloride (NS) 1,000 ml @ 75 mls/hr [id number] IV ; Start 03/04/17 at 11:00 Methylprednisolone Sodium Succinate (Solu-Medrol) 60 mg Q2H PRN IV REACTIONS; Start 03/05/17 at 12:00; Stop 03/05/17 at 23:45 Meperidine HCl (Demerol) 50 mg Q2H PRN IV REACTION; Start 03/05/17 at 12:00; Stop 03/05/17 at 23:45 Diphenhydramine HCl (Benadryl) 50 mg Q2H PRN IV ALLERGIC REACTION; Start at 12:00; Stop 03/05/17 at 23:45 SMITH BUSTAMANTE Mar 05, 2017 13:32
--- NOTE | 2017-03-05 23:37 | CONS ---
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 Pt is a [employer] and does not accept blood transfusion. response to steroids but whenever the dose of steroids are tapered, she develops symptomatic anemia,. Since she is Jehovah witness, she declines any blood products. Of note, Previous workup 12/11 did not show any abnormalities in peripheral blood cytogenetics, BCR ABL and had negative PNH workup. Pt was given Rituxan today. Hg slowly rising Problems: (1) Autoimmune hemolytic anemia, cold antibody type Status: Acute Comment: -pt has col agglutinin disease. she is s/p IVIG and currently on steroids -continue Solumedrol 60mg IV q 8 -s/p Rituxan 375mg/m2 today to be given weekly x 4 weeks. next dose to be given Friday. will write order -Cold Agglutinin titer at 1:4 -f/u cryoglobulin level -complement shows decrease of C3 -retic count is at 12% which shows bone marrow is trying to compensate -continue Cellcept 1000mg BID to help with hemolysis -SPEP and Serum ESTHER did not show evidence of monoclonal protein -continue folate and MVI -spoke with physician at [facility]. They will consider accept the patient for higher level of care given that her Hg has barely risen over the past 1.5 weeks despite multiple interventions (2) Refusal of blood transfusions as patient is Oriental orthodox Status: Chronic Comment: -will need to increase EPO to 60,000 unit q week. this was given last night -Ferrlecit x 5 days have continued (3) Back pain Status: Chronic Comment: -Tylenol po q 6 hours prn ordered Qualifiers: Back pain location: low back pain Chronicity: chronic Back pain laterality: right (4) Weakness generalized Status: Chronic Comment: -secondary to her anemia. -monitor sx as Hg rises. Problems: (1) Shingles rash Status: Acute Comment: -cont acyclovir 400mg TID -rash improving Qualifiers: Herpes zoster complications: without complications Qualified Code: B02.9 - Herpes zoster without complication Consultation Date/Type/Reason Admit Date/Time Feb 21, 2017 at 17:22 Initial Consult Date 02/22/17 Type of Consultation: Hematology Reason for Consultation hemolytic anemia Referring Provider: LUBA FERRARO 24 HR Interval Summary Free Text/Dictation patient received rituxan today and tolerated it well Exam/Review of Systems Vital Signs Vitals Vital Signs Date Time Temp Pulse Resp B/P Pulse Ox O2 Delivery O2 Flow Rate FiO2 03/05/17 20:00 98.3 106 19 105/67 100 03/05/17 18:00 Room Air Intake and Output 03/04/17 03/04/17 03/05/17 15:00 23:00 07:00 Intake Total 1710 ml 750 ml Balance 1710 ml 750 ml Exam Constitutional: alert, oriented, well developed Psych: nl mood/affect, no complaints Head: atraumatic, normocephalic Eyes: EOMI, PERRL, nl conjunctiva, nl lids, nl sclera ENMT: nl external ears & nose, nl lips & teeth, nl nasal mucosa & septum Neck: non-tender, supple Respiratory: clear to auscultation, normal air movement Cardiovascular: nl pulses, regular rate and rhythm Gastrointestinal: nl liver, spleen, non-tender, soft Musculoskeletal: nl extremities to inspection, nl gait and stance Extremities: normal pulses 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, nl mental status, nl speech, nl strength Skin: other (herpetic rash on buttock is resolving) Lymph: nl lymph nodes Results Result Diagram: 03/04/17 0629 03/04/17 0630 Medications Medications Current Medications Methylprednisolone Sodium Succinate (Solu-Medrol) 60 mg Q8 IV Last administered on 03/05/17 21:19; Admin Dose 60 MG; Start 02/23/17 at 14:00 Pantoprazole (Protonix Tab) 40 mg DAILY@06 PO Last administered on 03/05/17 05: 47; Admin Dose 40 MG; Start 02/24/17 at 06:00 Acetaminophen (Tylenol Tab) 325 mg Q6H PRN PO PAIN AND OR ELEVATED TEMP Last administered on 03/03/17 21:16; Admin Dose 325 MG; Start 02/24/17 at 09:00 Trimethoprim/ Sulfamethoxazole (Bactrim (Ss)) 1 tab MONWEDFRI PO Last administered on 03/05/17 12:30; Admin Dose 1 TAB; Start 02/24/17 at 09:30 IV Flush (NS 10 ml) 10 ml PRN PRN IV IV PROTOCOL; Start 02/25/17 at 19:00 Epoetin Carroll (Epogen (Oncology)) 60,000 units Th@17 SC Last administered on 02/27 17:10; Admin Dose 60,000 UNITS; Start 02/27/17 at 12:00 Mycophenolate Mofetil (Cellcept) 1,000 mg BID PO Last administered on 03/05/17 21:14; Admin Dose 1,000 MG; Start 02/27/17 at 21:00 Folic Acid (Folic Acid) 1 mg DAILY PO Last administered on 03/05/17 08:57; Admin Dose 1 MG; Start 02/28/17 at 09:00 Multivitamins Therapeutic (Theragran) 1 tab DAILY PO Last administered on 08:56; Admin Dose 1 TAB; Start 02/28/17 at 09:00 Zolpidem Tartrate 5 mg 5 mg HS PRN PO INSOMNIA Last administered on 02/28/17 22 :08; Admin Dose 5 MG; Start 02/28/17 at 21:30 Ferric Sodium Gluconate Complex/ Sodium Chloride (Ferrlecit/NS) 110 ml @ 110 mls/hr Q24H IVPB Last administered on 03/05/17 10:43; Admin Dose 110 MLS/HR; Start 03/03/17 at 10:30; Stop 03/07/17 at 11:29 Acyclovir (Zovirax) 400 mg TID PO Last administered on 03/05/17 21:20; Admin Dose 400 MG; Start 03/03/17 at 09:00 Al Hydrox/Mg Hydrox/Simethicone (Mag-Al Plus) 30 ml Q4H PRN PO GASTROINTESTINAL UPSET; Start 03/03/17 at 22:00 Ondansetron HCl 4 mg 4 mg Q6H PRN IV NAUSEA AND/OR VOMITING Last administered on 03/05/17 10:43; Admin Dose 4 MG; Start 03/03/17 at 22:00 Sodium Chloride (NS) 1,000 ml @ 75 mls/hr [id number] IV ; Start 03/04/17 at 11:00 Methylprednisolone Sodium Succinate (Solu-Medrol) 60 mg Q2H PRN IV REACTIONS; Start 03/05/17 at 12:00; Stop 03/05/17 at 23:45 Meperidine HCl (Demerol) 50 mg Q2H PRN IV REACTION; Start 03/05/17 at 12:00; Stop 03/05/17 at 23:45 Diphenhydramine HCl (Benadryl) 50 mg Q2H PRN IV ALLERGIC REACTION; Start at 12:00; Stop 03/05/17 at 23:45 PAMELA BENDER M.D. Mar 05, 2017 23:18
[2017-03-06] VITALS (12 sets, daily range): BP systolic 104–110; BP diastolic 55–66; PULSE 85–96; RESP 16–19
[2017-03-06] MEDS: SOD CHLORIDE 0.9% 1,000 ML IV SCH (01:09)
[2017-03-06] MEDS: PANTOPRAZOLE (EC) 40 MG TAB PO SCH (05:19)
[2017-03-06] MEDS: METHYLPREDNISOLONE 125 MG INJ IV SCH ×3 (05:20→20:30)
[2017-03-06 07:42] LABS: ABNORMAL IP MESSAGE 1; HEMATOCRIT 17.2 % (37.0-47.0); MEAN CORPUSCULAR HGB CONC 34.3 g/dl (32.0-37.0); MEAN CORPUSCULAR VOLUME 131.3 fl (82.0-101.0); MEAN PLATELET VOLUME 11.4 fl (7.4-10.4); NUCLEATED RED BLOOD CELLS% 339.6 /100WBC (0.0-0.0); PLATELET COUNT 104 10^3/UL (140-415); RED BLOOD COUNT 1.31 10^6/ul (4.20-5.40); RED CELL DISTRIBUTION WIDTH 32.8 % (11.5-14.5); WHITE BLOOD COUNT 30.2 10^3/ul (4.8-10.8)
[2017-03-06 07:50] LABS: HEMOGLOBIN 5.9 g/dl (12.0-16.0); POSITIVE DIFF @See below
[2017-03-06 08:04] LABS: CALCIUM 8.8 mg/dl (8.4-10.2); CREATININE 0.54 mg/dl (0.44-1.00); POTASSIUM 4.3 mmol/L (3.5-5.1)
[2017-03-06] MEDS: MYCOPHENOLATE 250 MG CAP PO SCH ×2 (08:29→20:25)
[2017-03-06] MEDS: ACYCLOVIR 400 MG TAB PO SCH ×3 (08:29→20:25)
[2017-03-06] MEDS: FOLIC ACID 1 MG TAB PO SCH (08:30)
[2017-03-06] MEDS: MULTIVITAMINS THERAPEUTIC TAB PO SCH (08:30)
[2017-03-06] MEDS: SOD FERRIC GLUC COMPLX 125 MG in SOD CHLORIDE 0.9% 100 ML IVPB SCH (11:00)
[2017-03-06] MEDS: ONDANSETRON 4 MG INJ IV PRN (11:01)
[2017-03-06 12:49] LABS: ANISOCYTOSIS 3+ (0-0); ERYTHROBLAST% (NRBC) (M) 311 % (0-0); GIANT THROMBO% (M) 7 % (0-0); MICROCYTOSIS 3+ (0-0); MONOCYTES % (M) 16 % (0-11); MYELOCYTES % (M) 1 % (0.0-0.0); PLATELET ESTIMATE DECREASED; POLYCHROMASIA 3+ (0-0); PROMYELOCYTES #M 0 # (0-0); PROMYELOCYTES % (M) 1 % (0-0)
--- NOTE | 2017-03-06 14:22 | PN ---
Date/Time of Note Date/Time of Note DATE: 03/06/17 TIME: 14:20 Assessment/Plan VTE Prophylaxis VTE Prophylaxis Intervention: other Lines/Catheters [facility] Type (from [facility] PICC Line Central line still needed: Yes Urinary Cath still in place: No Assessment/Plan Assessment/Plan - Autoimmune hemolytic anemia. The patient is a Judaism and cannot get a blood transfusion. - Dr. Pak is following in hematology consultation. - Refusal of blood transfusions as patient is Judaism - Epogen per Hematology - Chronic Weakness generalized -secondary to her anemia. -monitor CBC - Possible shingles, continue acyclovir, isolation, buttock rash improving Further recommendations based on clinical course. Plan of care discussed with Dr. Will. 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, requiring O2 Respiratory: no complaints Cardiovascular: no complaints Gastrointestinal: no complaints Musculoskeletal: no complaints Skin: no complaints Exam/Review of Systems Vital Signs Vitals Vital Signs Date Time Temp Pulse Resp B/P Pulse Ox O2 Delivery O2 Flow Rate FiO2 03/06/17 12:16 96 03/06/17 11:19 98.2 16 107/65 97 03/05/17 18:00 Room Air Intake and Output 03/05/17 03/05/17 03/06/17 15:00 23:00 07:00 Intake Total 110 ml 1000 ml 1400 ml Balance 110 ml 1000 ml 1400 ml Exam Constitutional: alert, oriented Respiratory: clear to auscultation, normal air movement Cardiovascular: nl pulses, regular rate and rhythm Gastrointestinal: non-tender, soft Musculoskeletal: nl extremities to inspection Extremities: normal pulses Neurological: nl mental status, nl speech Skin: other (pale) Results Result Diagram: 03/06/17 0704 03/06/17 0704 Results 24 hrs Laboratory Tests Test 03/06/17 07:04 White Blood Count 30.2 H Red Blood Count 1.31 L Hemoglobin 5.9 *L Hematocrit 17.2 L Mean Corpuscular Volume 131.3 H Mean Corpuscular Hemoglobin 45.0 H Mean Corpuscular Hemoglobin Concent 34.3 Red Cell Distribution Width 32.8 H Platelet Count 104 L Mean Platelet Volume 11.4 H Neutrophils % Segmented Neutrophils % (Manual) 59 Band Neutrophils % (Manual) 13 H Lymphocytes % Lymphocytes % (Manual) 10 L Monocytes % Monocytes % (Manual) 16 H Eosinophils % Basophils % Myelocytes % (Manual) 1 H Promyelocytes % (Manual) 1 H Nucleated Red Blood Cells % 311 H Neutrophils # Neutrophils # (Manual) 19.0 H Band Neutrophils # 3.9 H Absolute Lymphocytes (Manual) 3.0 H Lymphocytes # Monocytes # Absolute Monocytes (Manual) 4.8 H Eosinophils # Basophils # Myelocytes # 0.3 H Promyelocytes # 0 Nucleated Red Blood Cells # Thrombocytosis 7 H Platelet Estimate DECREASED Polychromasia 3+ Anisocytosis 3+ Microcytosis 3+ Macrocytosis 2+ Sodium Level 142 Potassium Level 4.3 Chloride Level 100 Carbon Dioxide Level 30 Anion Gap 16 Blood Urea Nitrogen 13 Creatinine 0.54 Glucose Level 86 Calcium Level 8.8 Medications Medications Current Medications Methylprednisolone Sodium Succinate (Solu-Medrol) 60 mg Q8 IV Last administered on 03/06/17 13:05; Admin Dose 60 MG; Start 02/23/17 at 14:00 Pantoprazole (Protonix Tab) 40 mg DAILY@06 PO Last administered on 03/06/17 05 :19; Admin Dose 40 MG; Start 02/24/17 at 06:00 Acetaminophen (Tylenol Tab) 325 mg Q6H PRN PO PAIN AND OR ELEVATED TEMP Last administered on 03/03/17 21:16; Admin Dose 325 MG; Start 02/24/17 at 09:00 Trimethoprim/ Sulfamethoxazole (Bactrim (Ss)) 1 tab MONWEDFRI PO Last administered on 03/05/17 12:30; Admin Dose 1 TAB; Start 02/24/17 at 09:30 IV Flush (NS 10 ml) 10 ml PRN PRN IV IV PROTOCOL; Start 02/25/17 at 19:00 Epoetin Carroll (Epogen (Oncology)) 60,000 units Th@17 SC Last administered on 02/27 17:10; Admin Dose 60,000 UNITS; Start 02/27/17 at 12:00 Mycophenolate Mofetil (Cellcept) 1,000 mg BID PO Last administered on 08:29; Admin Dose 1,000 MG; Start 02/27/17 at 21:00 Folic Acid (Folic Acid) 1 mg DAILY PO Last administered on 03/06/17 08:30; Admin Dose 1 MG; Start 02/28/17 at 09:00 Multivitamins Therapeutic (Theragran) 1 tab DAILY PO Last administered on 08:30; Admin Dose 1 TAB; Start 02/28/17 at 09:00 Zolpidem Tartrate 5 mg 5 mg HS PRN PO INSOMNIA Last administered on 02/28/17 22 :08; Admin Dose 5 MG; Start 02/28/17 at 21:30 Ferric Sodium Gluconate Complex/ Sodium Chloride (Ferrlecit/NS) 110 ml @ 110 mls/hr Q24H IVPB Last administered on 03/06/17 11:00; Admin Dose 110 MLS/HR; Start 03/03/17 at 10:30; Stop 03/07/17 at 11:29 Acyclovir (Zovirax) 400 mg TID PO Last administered on 03/06/17 13:06; Admin Dose 400 MG; Start 03/03/17 at 09:00 Al Hydrox/Mg Hydrox/Simethicone (Mag-Al Plus) 30 ml Q4H PRN PO GASTROINTESTINAL UPSET; Start 03/03/17 at 22:00 Ondansetron HCl (Zofran Inj) 4 mg Q6H PRN IV NAUSEA AND/OR VOMITING Last administered on 03/06/17 11:01; Admin Dose 4 MG; Start 03/03/17 at 22:00 JORJE NICHOLAS Mar 06, 2017 14:22
[2017-03-06] MEDS: EPOETIN 10000 UNITS/ML VIAL (ONCOLOGY) SC SCH (17:37)
--- NOTE | 2017-03-06 21:18 | CONS ---
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 response to steroids but whenever the dose of steroids are tapered, she develops symptomatic anemia,. Since she is Jehovah witness, she declines any blood products. Of note, Previous workup 12/11 did not show any abnormalities in peripheral blood cytogenetics, BCR ABL and had negative PNH workup. Pt was given Rituxan yesterday. Hg slowly rising Problems: (1) Autoimmune hemolytic anemia, cold antibody type Status: Acute Comment: -pt has col agglutinin disease. she is s/p IVIG and currently on steroids -continue Solumedrol 60mg IV q 8 -s/p 2nd dose o Rituxan 375mg/m2 today to be given weekly x 4 weeks. given 03/05 -Cold Agglutinin titer at 1:4 -f/u cryoglobulin level -complement shows decrease of C3 -retic count is at 12% which shows bone marrow is trying to compensate -continue Cellcept 1000mg BID to help with hemolysis -SPEP and Serum ESTHER did not show evidence of monoclonal protein -continue folate and MVI -spoke with physician at [facility]. They will consider accept the patient for higher level of care given that her Hg has barely risen over the past 1.5 weeks despite multiple interventions (2) Refusal of blood transfusions as patient is Buddhist Status: Chronic Comment: -will need to increase EPO to 60,000 unit q week. this was given last night -Ferrlecit x 5 days have continued (3) Back pain Status: Chronic Comment: -Tylenol po q 6 hours prn ordered Qualifiers: Back pain location: low back pain Chronicity: chronic Back pain laterality: right (4) Weakness generalized Status: Chronic Comment: -secondary to her anemia. -monitor sx as Hg rises. Problems: (1) Shingles rash Status: Acute Qualifiers: Herpes zoster complications: without complications Qualified Code: B02.9 - Herpes zoster without complication Consultation Date/Type/Reason Admit Date/Time Feb 21, 2017 at 17:22 Initial Consult Date 02/22/17 Type of Consultation: Hematology Reason for Consultation hemolytic anemia Referring Provider: LUBA FERRARO 24 HR Interval Summary Free Text/Dictation Hg claire today. states she feels like she has more energy. s/p 2nd dose of Rituxan yesterday Exam/Review of Systems Vital Signs Vitals Vital Signs Date Time Temp Pulse Resp B/P Pulse Ox O2 Delivery O2 Flow Rate FiO2 03/06/17 20:29 94 03/06/17 19:54 98.8 16 108/58 96 03/05/17 18:00 Room Air Intake and Output 03/05/17 03/05/17 03/06/17 15:00 23:00 07:00 Intake Total 110 ml 1000 ml 1400 ml Balance 110 ml 1000 ml 1400 ml Exam Constitutional: alert, oriented Psych: no complaints Head: normocephalic Eyes: nl conjunctiva ENMT: nl external ears & nose, nl lips & teeth Neck: non-tender, supple Respiratory: clear to auscultation Cardiovascular: regular rate and rhythm Gastrointestinal: soft Musculoskeletal: joint tenderness, nl extremities to inspection Skin: nl turgor Results Result Diagram: 03/06/17 0704 03/06/17 0704 Results 24 hrs Laboratory Tests Test 03/06/17 07:04 White Blood Count 30.2 H Red Blood Count 1.31 L Hemoglobin 5.9 *L Hematocrit 17.2 L Mean Corpuscular Volume 131.3 H Mean Corpuscular Hemoglobin 45.0 H Mean Corpuscular Hemoglobin Concent 34.3 Red Cell Distribution Width 32.8 H Platelet Count 104 L Mean Platelet Volume 11.4 H Neutrophils % Segmented Neutrophils % (Manual) 59 Band Neutrophils % (Manual) 13 H Lymphocytes % Lymphocytes % (Manual) 10 L Monocytes % Monocytes % (Manual) 16 H Eosinophils % Basophils % Myelocytes % (Manual) 1 H Promyelocytes % (Manual) 1 H Nucleated Red Blood Cells % 311 H Neutrophils # Neutrophils # (Manual) 19.0 H Band Neutrophils # 3.9 H Absolute Lymphocytes (Manual) 3.0 H Lymphocytes # Monocytes # Absolute Monocytes (Manual) 4.8 H Eosinophils # Basophils # Myelocytes # 0.3 H Promyelocytes # 0 Nucleated Red Blood Cells # Thrombocytosis 7 H Platelet Estimate DECREASED Polychromasia 3+ Anisocytosis 3+ Microcytosis 3+ Macrocytosis 2+ Sodium Level 142 Potassium Level 4.3 Chloride Level 100 Carbon Dioxide Level 30 Anion Gap 16 Blood Urea Nitrogen 13 Creatinine 0.54 Glucose Level 86 Calcium Level 8.8 Medications Medications Current Medications Methylprednisolone Sodium Succinate (Solu-Medrol) 60 mg Q8 IV Last administered on 03/06/17 20:30; Admin Dose 60 MG; Start 02/23/17 at 14:00 Pantoprazole (Protonix Tab) 40 mg DAILY@06 PO Last administered on 03/06/17 05 :19; Admin Dose 40 MG; Start 02/24/17 at 06:00 Acetaminophen (Tylenol Tab) 325 mg Q6H PRN PO PAIN AND OR ELEVATED TEMP Last administered on 03/03/17 21:16; Admin Dose 325 MG; Start 02/24/17 at 09:00 Trimethoprim/ Sulfamethoxazole (Bactrim (Ss)) 1 tab MONWEDFRI PO Last administered on 03/05/17 12:30; Admin Dose 1 TAB; Start 02/24/17 at 09:30 IV Flush (NS 10 ml) 10 ml PRN PRN IV IV PROTOCOL; Start 02/25/17 at 19:00 Epoetin Carroll (Epogen (Oncology)) 60,000 units Th@17 SC Last administered on 17:37; Admin Dose 60,000 UNITS; Start 02/27/17 at 12:00 Mycophenolate Mofetil (Cellcept) 1,000 mg BID PO Last administered on 20:25; Admin Dose 1,000 MG; Start 02/27/17 at 21:00 Folic Acid (Folic Acid) 1 mg DAILY PO Last administered on 03/06/17 08:30; Admin Dose 1 MG; Start 02/28/17 at 09:00 Multivitamins Therapeutic (Theragran) 1 tab DAILY PO Last administered on 08:30; Admin Dose 1 TAB; Start 02/28/17 at 09:00 Zolpidem Tartrate 5 mg 5 mg HS PRN PO INSOMNIA Last administered on 02/28/17 22 :08; Admin Dose 5 MG; Start 02/28/17 at 21:30 Ferric Sodium Gluconate Complex/ Sodium Chloride (Ferrlecit/NS) 110 ml @ 110 mls/hr Q24H IVPB Last administered on 03/06/17 11:00; Admin Dose 110 MLS/HR; Start 03/03/17 at 10:30; Stop 03/07/17 at 11:29 Acyclovir (Zovirax) 400 mg TID PO Last administered on 03/06/17 20:25; Admin Dose 400 MG; Start 03/03/17 at 09:00 Al Hydrox/Mg Hydrox/Simethicone (Mag-Al Plus) 30 ml Q4H PRN PO GASTROINTESTINAL UPSET; Start 03/03/17 at 22:00 Ondansetron HCl (Zofran Inj) 4 mg Q6H PRN IV NAUSEA AND/OR VOMITING Last administered on 03/06/17 11:01; Admin Dose 4 MG; Start 03/03/17 at 22:00 PAMELA BENDER M.D. Mar 06, 2017 21:18
[2017-03-07] VITALS (10 sets, daily range): BP systolic 107–115; BP diastolic 56–70; PULSE 75–104; RESP 15–20
[2017-03-07] MEDS: METHYLPREDNISOLONE 125 MG INJ IV SCH ×3 (05:21→22:18)
[2017-03-07] MEDS: PANTOPRAZOLE (EC) 40 MG TAB PO SCH (05:21)
[2017-03-07 07:44] LABS: ABNORMAL IP MESSAGE 1; BASOPHIL # 0.1 10^3/ul (0.0-0.1); BASOPHILS % 0.3 % (0.0-2.0); HEMATOCRIT 19.3 % (37.0-47.0); LYMPHOCYTES # 0.8 10^3/ul (0.8-2.9); LYMPHOCYTES % 2.6 % (15.0-51.0); MEAN CORPUSCULAR HEMOGLOBIN 45.5 pg (29.0-33.0); MEAN CORPUSCULAR HGB CONC 33.7 g/dl (32.0-37.0); MEAN PLATELET VOLUME 11.7 fl (7.4-10.4); MONOCYTE # 4.8 10^3/ul (0.3-0.9); NEUTROPHIL # 19.8 10^3/ul (1.6-7.5); NEUTROPHILS % 65.1 % (39.0-77.0); NUCLEATED RED BLOOD CELLS% 371.8 /100WBC (0.0-0.0); PLATELET COUNT 104 10^3/UL (140-415); RED BLOOD COUNT 1.43 10^6/ul (4.20-5.40); RED CELL DISTRIBUTION WIDTH 33.2 % (11.5-14.5); WHITE BLOOD COUNT 30.4 10^3/ul (4.8-10.8)
[2017-03-07 07:48] LABS: HEMOGLOBIN 6.5 g/dl (12.0-16.0); MONOCYTES % 15.7 % (0.0-11.0); NUCLEATED RED BLOOD CELLS # 112.9 10^3/ul (0.0-0.0); POSITIVE DIFF @See below
[2017-03-07 08:14] LABS: CALCIUM 9.2 mg/dl (8.4-10.2); CREATININE 0.51 mg/dl (0.44-1.00); POTASSIUM 4.3 mmol/L (3.5-5.1)
[2017-03-07] MEDS: FOLIC ACID 1 MG TAB PO SCH (08:24)
[2017-03-07] MEDS: ACYCLOVIR 400 MG TAB PO SCH ×3 (08:24→22:17)
[2017-03-07] MEDS: MULTIVITAMINS THERAPEUTIC TAB PO SCH (08:24)
[2017-03-07] MEDS: MYCOPHENOLATE 250 MG CAP PO SCH ×2 (08:25→22:17)
[2017-03-07 08:58] LABS: ANISOCYTOSIS 3+ (0-0); ERYTHROBLAST% (NRBC) (M) 276 % (0-0); MICROCYTOSIS 3+ (0-0); MONOCYTES % (M) 3 % (0-11); PLATELET ESTIMATE DECREASED; POLYCHROMASIA 2+ (0-0)
--- NOTE | 2017-03-07 09:08 | CONS ---
Date/Time of Note Date/Time of Note DATE: 03/07/17 TIME: 09:06 Assessment/Plan Assessment/Plan Chief Complaint/Hosp Course 31 y/o with cold agglutinan chronic hemolytic anemia with response to steroids in the past but unable to maintain her Hg once the steroid was tapered. 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 Pt is a Rastafarian and does not accept blood transfusion. response to steroids but whenever the dose of steroids are tapered, she develops symptomatic anemia,. Since she is Jehovah witness, she declines any blood products. Of note, Previous workup 12/11 did not show any abnormalities in peripheral blood cytogenetics, BCR ABL and had negative PNH workup. Pt was given Rituxan yesterday. Hg slowly rising, now > 6.5 Problems: (1) Autoimmune hemolytic anemia, cold antibody type Status: Acute Comment: -pt has col agglutinin disease. she is s/p IVIG and currently on steroids -decrease Solumedrol 60mg IV to q 12 -s/p 2nd dose o Rituxan 375mg/m2 today to be given weekly x 4 weeks. given 03/05 -Cold Agglutinin titer at 1:4 -f/u cryoglobulin level -complement shows decrease of C3 -retic count is at 12% which shows bone marrow is trying to compensate -continue Cellcept 1000mg BID to help with hemolysis -SPEP and Serum ESTHER did not show evidence of monoclonal protein -continue folate and MVI -spoke with physician at [facility]. They will consider accept the patient for higher level of care given that her Hg has barely risen over the past 1.5 weeks despite multiple interventions (2) Refusal of blood transfusions as patient is Druze Status: Chronic Comment: -will need to increase EPO to 60,000 unit q week. this was given last night -Ferrlecit x 5 days have continued (3) Back pain Status: Chronic Comment: -Tylenol po q 6 hours prn ordered Qualifiers: Back pain location: low back pain Chronicity: chronic Back pain laterality: right (4) Weakness generalized Status: Chronic Comment: -secondary to her anemia. -monitor sx as Hg rises. Problems: (1) Shingles rash Status: Acute Qualifiers: Herpes zoster complications: without complications Qualified Code: B02.9 - Herpes zoster without complication Problems: Consultation Date/Type/Reason Admit Date/Time Feb 21, 2017 at 17:22 Initial Consult Date 02/22/17 Type of Consultation: Hematology Reason for Consultation autoimmune hemolytic anemia Referring Provider: LUBA FERRARO 24 HR Interval Summary Free Text/Dictation pt continues to have more energy. shingles rash is improving Exam/Review of Systems Vital Signs Vitals Vital Signs Date Time Temp Pulse Resp B/P Pulse Ox O2 Delivery O2 Flow Rate FiO2 03/07/17 08:14 75 03/07/17 07:34 98.3 16 111/65 98 03/05/17 18:00 Room Air Intake and Output 03/06/17 03/06/17 03/07/17 15:00 23:00 07:00 Intake Total 1130 ml 1025 ml Balance 1130 ml 1025 ml Exam Constitutional: alert, oriented Psych: no complaints Head: normocephalic Eyes: nl conjunctiva ENMT: nl external ears & nose Neck: non-tender, supple Respiratory: clear to auscultation Cardiovascular: regular rate and rhythm Gastrointestinal: soft Musculoskeletal: nl extremities to inspection, nl gait and stance Extremities: normal pulses Results Result Diagram: 03/07/17 0652 03/07/17 0652 Results 24 hrs Laboratory Tests Test 03/07/17 06:52 White Blood Count 30.4 H Red Blood Count 1.43 L Hemoglobin 6.5 *L Hematocrit 19.3 L Mean Corpuscular Volume 135.0 H Mean Corpuscular Hemoglobin 45.5 H Mean Corpuscular Hemoglobin Concent 33.7 Red Cell Distribution Width 33.2 H Platelet Count 104 L Mean Platelet Volume 11.7 H Neutrophils % 65.1 Segmented Neutrophils % (Manual) 74 Band Neutrophils % (Manual) 14 H Lymphocytes % 2.6 L Lymphocytes % (Manual) 10 L Monocytes % 15.7 H Monocytes % (Manual) 3 Eosinophils % 0.0 Basophils % 0.3 Nucleated Red Blood Cells % 276 H Neutrophils # 19.8 H Neutrophils # (Manual) 23.8 H Band Neutrophils # 4.2 H Absolute Lymphocytes (Manual) 3.0 H Lymphocytes # 0.8 Monocytes # 4.8 H Absolute Monocytes (Manual) 0.9 Eosinophils # 0.0 Basophils # 0.1 Nucleated Red Blood Cells # 112.9 H Platelet Estimate DECREASED Polychromasia 2+ Anisocytosis 3+ Microcytosis 3+ Macrocytosis 1+ Sodium Level 139 Potassium Level 4.3 Chloride Level 96 L Carbon Dioxide Level 30 Anion Gap 17 H Blood Urea Nitrogen 19 Creatinine 0.51 Glucose Level 90 Calcium Level 9.2 Medications Medications Current Medications Pantoprazole (Protonix Tab) 40 mg DAILY@06 PO Last administered on 03/07/17 05 :21; Admin Dose 40 MG; Start 02/24/17 at 06:00 Acetaminophen (Tylenol Tab) 325 mg Q6H PRN PO PAIN AND OR ELEVATED TEMP Last administered on 03/03/17 21:16; Admin Dose 325 MG; Start 02/24/17 at 09:00 Trimethoprim/ Sulfamethoxazole (Bactrim (Ss)) 1 tab MONWEDFRI PO Last administered on 03/05/17 12:30; Admin Dose 1 TAB; Start 02/24/17 at 09:30 IV Flush (NS 10 ml) 10 ml PRN PRN IV IV PROTOCOL; Start 02/25/17 at 19:00 Epoetin Carroll (Epogen (Oncology)) 60,000 units Th@17 SC Last administered on 17:37; Admin Dose 60,000 UNITS; Start 02/27/17 at 12:00 Mycophenolate Mofetil (Cellcept) 1,000 mg BID PO Last administered on 08:25; Admin Dose 1,000 MG; Start 02/27/17 at 21:00 Folic Acid (Folic Acid) 1 mg DAILY PO Last administered on 03/07/17 08:24; Admin Dose 1 MG; Start 02/28/17 at 09:00 Multivitamins Therapeutic (Theragran) 1 tab DAILY PO Last administered on 08:24; Admin Dose 1 TAB; Start 02/28/17 at 09:00 Zolpidem Tartrate (Ambien) 5 mg HS PRN PO INSOMNIA Last administered on 22:08; Admin Dose 5 MG; Start 02/28/17 at 21:30 Acyclovir (Zovirax) 400 mg TID PO Last administered on 03/07/17 08:24; Admin Dose 400 MG; Start 03/03/17 at 09:00 Al Hydrox/Mg Hydrox/Simethicone (Mag-Al Plus) 30 ml Q4H PRN PO GASTROINTESTINAL UPSET; Start 03/03/17 at 22:00 Ondansetron HCl (Zofran Inj) 4 mg Q6H PRN IV NAUSEA AND/OR VOMITING Last administered on 03/06/17t 11:01; Admin Dose 4 MG; Start 03/03/17 at 22:00 Methylprednisolone Sodium Succinate (Solu-Medrol) 60 mg Q12H IV ; Start at 12:00 PAMELA BENDER M.D. Mar 07, 2017 09:08
[2017-03-07] MEDS: TRIMETHOPRIM/SULFAMETHOX (SS) TAB PO SCH (12:53)
--- NOTE | 2017-03-07 12:58 | PN ---
Date/Time of Note Date/Time of Note DATE: 03/07/17 TIME: 12:56 Assessment/Plan VTE Prophylaxis VTE Prophylaxis Intervention: SCD's Lines/Catheters IV [facility] PICC Line Central line still needed: Yes Urinary Cath still in place: No Assessment/Plan Chief Complaint/Hosp Course No acute events overnight, patient remains hemodynamically stable, stated decrease in pruritus. Assessment/Plan - Autoimmune hemolytic anemia. The patient is a Mandaeism and cannot get a blood transfusion. Dr. Pak is following in hematology consultation. - Possible shingles, continue acyclovir, isolation. Further recommendations based on clinical course. Plan of care discussed with Dr. Will. Problems: Exam/Review of Systems Vital Signs Vitals Vital Signs Date Time Temp Pulse Resp B/P Pulse Ox O2 Delivery O2 Flow Rate FiO2 03/07/17 12:55 99 03/07/17 07:34 98.3 16 111/65 98 03/05/17 18:00 Room Air Intake and Output 03/06/17 03/06/17 03/07/17 15:00 23:00 07:00 Intake Total 1130 ml 1025 ml Balance 1130 ml 1025 ml Exam Constitutional: alert Neck: supple Respiratory: normal air movement Cardiovascular: nl pulses Gastrointestinal: non-tender, soft Extremities: normal pulses Neurological: nl mental status Skin: other (Left buttocks rash) Results Result Diagram: 03/07/17 0652 03/07/17 0652 Results 24 hrs Laboratory Tests Test 03/07/17 06:52 White Blood Count 30.4 H Red Blood Count 1.43 L Hemoglobin 6.5 *L Hematocrit 19.3 L Mean Corpuscular Volume 135.0 H Mean Corpuscular Hemoglobin 45.5 H Mean Corpuscular Hemoglobin Concent 33.7 Red Cell Distribution Width 33.2 H Platelet Count 104 L Mean Platelet Volume 11.7 H Neutrophils % 65.1 Segmented Neutrophils % (Manual) 74 Band Neutrophils % (Manual) 14 H Lymphocytes % 2.6 L Lymphocytes % (Manual) 10 L Monocytes % 15.7 H Monocytes % (Manual) 3 Eosinophils % 0.0 Basophils % 0.3 Nucleated Red Blood Cells % 276 H Neutrophils # 19.8 H Neutrophils # (Manual) 23.8 H Band Neutrophils # 4.2 H Absolute Lymphocytes (Manual) 3.0 H Lymphocytes # 0.8 Monocytes # 4.8 H Absolute Monocytes (Manual) 0.9 Eosinophils # 0.0 Basophils # 0.1 Nucleated Red Blood Cells # 112.9 H Platelet Estimate DECREASED Polychromasia 2+ Anisocytosis 3+ Microcytosis 3+ Macrocytosis 1+ Sodium Level 139 Potassium Level 4.3 Chloride Level 96 L Carbon Dioxide Level 30 Anion Gap 17 H Blood Urea Nitrogen 19 Creatinine 0.51 Glucose Level 90 Calcium Level 9.2 Medications Medications Current Medications Pantoprazole (Protonix Tab) 40 mg DAILY@06 PO Last administered on 03/07/17 05 :21; Admin Dose 40 MG; Start 02/24/17 at 06:00 Acetaminophen (Tylenol Tab) 325 mg Q6H PRN PO PAIN AND OR ELEVATED TEMP Last administered on 03/03/17 21:16; Admin Dose 325 MG; Start 02/24/17 at 09:00 Trimethoprim/ Sulfamethoxazole (Bactrim (Ss)) 1 tab MONWEDFRI PO Last administered on 03/07/17 12:53; Admin Dose 1 TAB; Start 02/24/17 at 09:30 IV Flush (NS 10 ml) 10 ml PRN PRN IV IV PROTOCOL; Start 02/25/17 at 19:00 Epoetin Carroll (Epogen (Oncology)) 60,000 units Th@17 SC Last administered on 17:37; Admin Dose 60,000 UNITS; Start 02/27/17 at 12:00 Mycophenolate Mofetil (Cellcept) 1,000 mg BID PO Last administered on 08:25; Admin Dose 1,000 MG; Start 02/27/17 at 21:00 Folic Acid (Folic Acid) 1 mg DAILY PO Last administered on 03/07/17 08:24; Admin Dose 1 MG; Start 02/28/17 at 09:00 Multivitamins Therapeutic (Theragran) 1 tab DAILY PO Last administered on 08:24; Admin Dose 1 TAB; Start 02/28/17 at 09:00 Zolpidem Tartrate (Ambien) 5 mg HS PRN PO INSOMNIA Last administered on 22:08; Admin Dose 5 MG; Start 02/28/17 at 21:30 Acyclovir (Zovirax) 400 mg TID PO Last administered on 03/07/17 12:54; Admin Dose 400 MG; Start 03/03/17 at 09:00 Al Hydrox/Mg Hydrox/Simethicone (Mag-Al Plus) 30 ml Q4H PRN PO GASTROINTESTINAL UPSET; Start 03/03/17 at 22:00 Ondansetron HCl (Zofran Inj) 4 mg Q6H PRN IV NAUSEA AND/OR VOMITING Last administered on 03/06/17 11:01; Admin Dose 4 MG; Start 03/03/17 at 22:00 Methylprednisolone Sodium Succinate (Solu-Medrol) 60 mg Q12H IV Last administered on 03/07/17 12:26; Admin Dose 60 MG; Start 03/07/17 at 12:00 SMITH BUSTAMANTE Mar 07, 2017 12:58
[2017-03-08 01:41] VITALS: BP 121/76; RESP 20
[2017-03-08] MEDS: PANTOPRAZOLE (EC) 40 MG TAB PO SCH (05:38)
[2017-03-08 07:14] LABS: ABNORMAL IP MESSAGE 1; HEMATOCRIT 21.6 % (37.0-47.0); MEAN CORPUSCULAR HEMOGLOBIN 43.9 pg (29.0-33.0); MEAN CORPUSCULAR HGB CONC 31.9 g/dl (32.0-37.0); MEAN CORPUSCULAR VOLUME 137.6 fl (82.0-101.0); MEAN PLATELET VOLUME 11.7 fl (7.4-10.4); NUCLEATED RED BLOOD CELLS% 440.9 /100WBC (0.0-0.0); PLATELET COUNT 104 10^3/UL (140-415); RED BLOOD COUNT 1.57 10^6/ul (4.20-5.40); RED CELL DISTRIBUTION WIDTH 33.8 % (11.5-14.5); WHITE BLOOD COUNT 27.1 10^3/ul (4.8-10.8)
[2017-03-08 07:46] LABS: HEMOGLOBIN 6.9 g/dl (12.0-16.0); POSITIVE DIFF @See below
[2017-03-08 08:10] VITALS: BP 113/59; RESP 16
[2017-03-08] MEDS: FOLIC ACID 1 MG TAB PO SCH (09:29)
[2017-03-08] MEDS: MULTIVITAMINS THERAPEUTIC TAB PO SCH (09:29)
[2017-03-08] MEDS: ACYCLOVIR 400 MG TAB PO SCH ×3 (09:29→20:31)
[2017-03-08] MEDS: MYCOPHENOLATE 250 MG CAP PO SCH ×2 (09:30→20:31)
[2017-03-08 10:34] LABS: ANISOCYTOSIS 3+ (0-0); ERYTHROBLAST% (NRBC) (M) 443 % (0-0); GIANT THROMBO% (M) 12 % (0-0); METAMYELOCYTES %M 3 % (0-0); MICROCYTOSIS 3+ (0-0); MONOCYTES % (M) 10 % (0-11); MYELOCYTES % (M) 5 % (0.0-0.0); PLATELET ESTIMATE DECREASED; POIKILOCYTOSIS 1+ (0-0); POLYCHROMASIA 3+ (0-0); SPHEROCYTES 3+ (0-0)
--- NOTE | 2017-03-08 13:00 | PN ---
Date/Time of Note Date/Time of Note DATE: 03/08/17 TIME: 12:43 Assessment/Plan VTE Prophylaxis VTE Prophylaxis Intervention: SCD's Lines/Catheters IV Catheter Type (from Nrs): PICC Line Central line still needed: Yes Urinary Cath still in place: No Assessment/Plan Assessment/Plan - Leukocytosis sec to Solumedrol, am labs - Autoimmune hemolytic anemia. - The patient is a Yazdanism and cannot get a blood transfusion. - Dr. Saldivar is following in hematology consultation. - Possible shingles, rash is getting better continue acyclovir, isolation. Further recommendations based on clinical course. Plan of care discussed with Dr. Will. Subjective 24 Hr Interval Summary Free Text/Dictation nad, able to function, feels more energetic , feels better, afebrile, dw staff- no new issues reported. Plan for [facility] care per dr saldivar for higher level of care as her Hg showed less improvement besides her past 1.5 weeks of multiple interventions by hematology. Cardiovascular: no complaints Gastrointestinal: no complaints Musculoskeletal: no complaints Skin: no complaints Neurologic: no complaints Endocrine: no complaints Exam/Review of Systems Vital Signs Vitals Vital Signs Date Time Temp Pulse Resp B/P Pulse Ox O2 Delivery O2 Flow Rate FiO2 03/08/17 08:10 98.3 83 16 113/59 95 03/07/17 16:00 Room Air Intake and Output 03/07/17 03/07/17 03/08/17 15:00 23:00 07:00 Intake Total 750 ml Balance 750 ml Exam Constitutional: alert, well developed Respiratory: clear to auscultation, normal air movement Cardiovascular: nl pulses, regular rate and rhythm Gastrointestinal: non-tender, soft Musculoskeletal: nl extremities to inspection Extremities: normal pulses Neurological: SOLUTION MIXER II-XII intact, nl mental status Skin: other Results Result Diagram: 03/08/17 0603 03/07/17 0652 Results 24 hrs Laboratory Tests Test 03/08/17 06:03 White Blood Count 27.1 H Red Blood Count 1.57 L Hemoglobin 6.9 *L Hematocrit 21.6 L Mean Corpuscular Volume 137.6 H Mean Corpuscular Hemoglobin 43.9 H Mean Corpuscular Hemoglobin Concent 31.9 L Red Cell Distribution Width 33.8 H Platelet Count 104 L Mean Platelet Volume 11.7 H Neutrophils % Segmented Neutrophils % (Manual) 70 Band Neutrophils % (Manual) 5 H Lymphocytes % Lymphocytes % (Manual) 7 L Monocytes % Monocytes % (Manual) 10 Eosinophils % Basophils % Metamyelocytes % (manual) 3 H Myelocytes % (Manual) 5 H Nucleated Red Blood Cells % 443 H Neutrophils # Neutrophils # (Manual) 19.3 H Band Neutrophils # 1.3 H Absolute Lymphocytes (Manual) 1.8 Lymphocytes # Monocytes # Absolute Monocytes (Manual) 2.7 H Eosinophils # Basophils # Metamyelocytes # 0.8 H Myelocytes # 1.3 H Nucleated Red Blood Cells # Thrombocytosis 12 H Platelet Estimate DECREASED Polychromasia 3+ Poikilocytosis 1+ Basophilic Stippling 1+ Anisocytosis 3+ Microcytosis 3+ Macrocytosis 2+ Spherocytes 3+ Medications Medications Current Medications Pantoprazole (Protonix Tab) 40 mg DAILY@06 PO Last administered on 03/08/17 05 :38; Admin Dose 40 MG; Start 02/24/17 at 06:00 Acetaminophen (Tylenol Tab) 325 mg Q6H PRN PO PAIN AND OR ELEVATED TEMP Last administered on 03/03/17 21:16; Admin Dose 325 MG; Start 02/24/17 at 09:00 Trimethoprim/ Sulfamethoxazole (Bactrim (Ss)) 1 tab MONWEDFRI PO Last administered on 03/07/17 12:53; Admin Dose 1 TAB; Start 02/24/17 at 09:30 IV Flush (NS 10 ml) 10 ml PRN PRN IV IV PROTOCOL; Start 02/25/17 at 19:00 Epoetin Carroll (Epogen (Oncology)) 60,000 units Th@17 SC Last administered on 17:37; Admin Dose 60,000 UNITS; Start 02/27/17 at 12:00 Mycophenolate Mofetil (Cellcept) 1,000 mg BID PO Last administered on 09:30; Admin Dose 1,000 MG; Start 02/27/17 at 21:00 Folic Acid (Folic Acid) 1 mg DAILY PO Last administered on 03/08/17 09:29; Admin Dose 1 MG; Start 02/28/17 at 09:00 Multivitamins Therapeutic (Theragran) 1 tab DAILY PO Last administered on 09:29; Admin Dose 1 TAB; Start 02/28/17 at 09:00 Zolpidem Tartrate (Ambien) 5 mg HS PRN PO INSOMNIA Last administered on 22:08; Admin Dose 5 MG; Start 02/28/17 at 21:30 Acyclovir (Zovirax) 400 mg TID PO Last administered on 03/08/17 09:29; Admin Dose 400 MG; Start 03/03/17 at 09:00 Al Hydrox/Mg Hydrox/Simethicone (Mag-Al Plus) 30 ml Q4H PRN PO GASTROINTESTINAL UPSET; Start 03/03/17 at 22:00 Ondansetron HCl (Zofran Inj) 4 mg Q6H PRN IV NAUSEA AND/OR VOMITING Last administered on 03/06/17 11:01; Admin Dose 4 MG; Start 03/03/17 at 22:00 Methylprednisolone Sodium Succinate (Solu-Medrol) 60 mg Q12H IV Last administered on 03/07/17 22:18; Admin Dose 60 MG; Start 03/07/17 at 12:00 JORJE NICHOLAS Mar 08, 2017 12:54
[2017-03-08] MEDS: METHYLPREDNISOLONE 125 MG INJ IV SCH ×2 (13:44→23:21)
[2017-03-08 14:42] VITALS: BP 112/59; RESP 18
[2017-03-08 20:40] VITALS: BP 111/55; RESP 18
[2017-03-09 01:49] VITALS: BP 112/58; RESP 18
[2017-03-09] MEDS: PANTOPRAZOLE (EC) 40 MG TAB PO SCH (05:21)
[2017-03-09 06:36] LABS: ABNORMAL IP MESSAGE 1; BASOPHILS % 0.2 % (0.0-2.0); HEMATOCRIT 24.6 % (37.0-47.0); HEMOGLOBIN 7.5 g/dl (12.0-16.0); LYMPHOCYTES # 0.5 10^3/ul (0.8-2.9); LYMPHOCYTES % 2.3 % (15.0-51.0); MEAN CORPUSCULAR HEMOGLOBIN 42.6 pg (29.0-33.0); MEAN CORPUSCULAR HGB CONC 30.5 g/dl (32.0-37.0); MEAN CORPUSCULAR VOLUME 139.8 fl (82.0-101.0); MEAN PLATELET VOLUME 11.7 fl (7.4-10.4); MONOCYTE # 1.7 10^3/ul (0.3-0.9); MONOCYTES % 7.6 % (0.0-11.0); NEUTROPHIL # 17.4 10^3/ul (1.6-7.5); NEUTROPHILS % 77.5 % (39.0-77.0); NUCLEATED RED BLOOD CELLS% 516.3 /100WBC (0.0-0.0); PLATELET COUNT 107 10^3/UL (140-415); RED BLOOD COUNT 1.76 10^6/ul (4.20-5.40); RED CELL DISTRIBUTION WIDTH 33.2 % (11.5-14.5); WHITE BLOOD COUNT 22.4 10^3/ul (4.8-10.8)
[2017-03-09 06:55] LABS: NUCLEATED RED BLOOD CELLS # 115.8 10^3/ul (0.0-0.0); POSITIVE DIFF @See below
[2017-03-09 07:08] LABS: CREATININE 0.46 mg/dl (0.44-1.00); POTASSIUM 3.9 mmol/L (3.5-5.1)
[2017-03-09 08:01] VITALS: BP 110/64; RESP 16
[2017-03-09] MEDS: ACYCLOVIR 400 MG TAB PO SCH ×3 (08:39→20:50)
[2017-03-09] MEDS: MULTIVITAMINS THERAPEUTIC TAB PO SCH (08:39)
[2017-03-09] MEDS: MYCOPHENOLATE 250 MG CAP PO SCH ×2 (08:39→20:50)
[2017-03-09] MEDS: FOLIC ACID 1 MG TAB PO SCH (08:39)
[2017-03-09] MEDS: METHYLPREDNISOLONE 125 MG INJ IV SCH (12:15)
[2017-03-09 15:28] VITALS: BP 104/64; RESP 18
--- NOTE | 2017-03-09 16:04 | PN ---
Date/Time of Note Date/Time of Note DATE: 03/09/17 TIME: 16:02 Assessment/Plan VTE Prophylaxis VTE Prophylaxis Intervention: other Lines/Catheters IV Catheter Type (from Nrs): PICC Line Central line still needed: Yes Urinary Cath still in place: No Assessment/Plan Assessment/Plan - Leukocytosis sec to Solumedrol, am labs - Autoimmune hemolytic anemia. - The patient is a Rastafarian and cannot get a blood transfusion. - Dr. Pak is following in hematology consultation. - Possible shingles, rash is getting better continue acyclovir, isolation. Further recommendations based on clinical course. Plan of care discussed with Dr. Will. Exam/Review of Systems Vital Signs Vitals Vital Signs Date Time Temp Pulse Resp B/P Pulse Ox O2 Delivery O2 Flow Rate FiO2 03/09/17 15:28 98.5 90 18 104/64 95 03/07/17 16:00 Room Air Intake and Output 03/08/17 03/08/17 03/09/17 15:00 23:00 07:00 Intake Total 1280 ml Balance 1280 ml Exam Constitutional: alert, oriented, well developed Respiratory: clear to auscultation, normal air movement Cardiovascular: nl pulses, regular rate and rhythm Gastrointestinal: non-tender, soft Musculoskeletal: nl extremities to inspection Extremities: normal pulses Neurological: nl mental status, nl speech Results Result Diagram: 03/09/17 0529 03/09/17 0529 Results 24 hrs Laboratory Tests Test 03/09/17 05:29 White Blood Count 22.4 H Red Blood Count 1.76 L Hemoglobin 7.5 L Hematocrit 24.6 L Mean Corpuscular Volume 139.8 H Mean Corpuscular Hemoglobin 42.6 H Mean Corpuscular Hemoglobin Concent 30.5 L Red Cell Distribution Width 33.2 H Platelet Count 107 L Mean Platelet Volume 11.7 H Neutrophils % 77.5 H Lymphocytes % 2.3 L Monocytes % 7.6 Eosinophils % 0.0 Basophils % 0.2 Nucleated Red Blood Cells % 516.3 H Neutrophils # 17.4 H Lymphocytes # 0.5 L Monocytes # 1.7 H Eosinophils # 0.0 Basophils # 0.0 Nucleated Red Blood Cells # 115.8 H Sodium Level 141 Potassium Level 3.9 Chloride Level 98 Carbon Dioxide Level 31 Anion Gap 16 Blood Urea Nitrogen 17 Creatinine 0.46 Glucose Level 102 Calcium Level 9.0 Medications Medications Current Medications Pantoprazole (Protonix Tab) 40 mg DAILY@06 PO Last administered on 03/09/17 05 :21; Admin Dose 40 MG; Start 02/24/17 at 06:00 Acetaminophen (Tylenol Tab) 325 mg Q6H PRN PO PAIN AND OR ELEVATED TEMP Last administered on 03/03/17 21:16; Admin Dose 325 MG; Start 02/24/17 at 09:00 Trimethoprim/ Sulfamethoxazole (Bactrim (Ss)) 1 tab MONWEDFRI PO Last administered on 03/07/17 12:53; Admin Dose 1 TAB; Start 02/24/17 at 09:30 IV Flush (NS 10 ml) 10 ml PRN PRN IV IV PROTOCOL; Start 02/25/17 at 19:00 Epoetin Carroll (Epogen (Oncology)) 60,000 units Th@17 SC Last administered on 17:37; Admin Dose 60,000 UNITS; Start 02/27/17 at 12:00 Mycophenolate Mofetil (Cellcept) 1,000 mg BID PO Last administered on 08:39; Admin Dose 1,000 MG; Start 02/27/17 at 21:00 Folic Acid (Folic Acid) 1 mg DAILY PO Last administered on 03/09/17 08:39; Admin Dose 1 MG; Start 02/28/17 at 09:00 Multivitamins Therapeutic (Theragran) 1 tab DAILY PO Last administered on 08:39; Admin Dose 1 TAB; Start 02/28/17 at 09:00 Zolpidem Tartrate (Ambien) 5 mg HS PRN PO INSOMNIA Last administered on 22:08; Admin Dose 5 MG; Start 02/28/17 at 21:30 Acyclovir (Zovirax) 400 mg TID PO Last administered on 03/09/17 12:15; Admin Dose 400 MG; Start 03/03/17 at 09:00 Al Hydrox/Mg Hydrox/Simethicone (Mag-Al Plus) 30 ml Q4H PRN PO GASTROINTESTINAL UPSET; Start 03/03/17 at 22:00 Ondansetron HCl (Zofran Inj) 4 mg Q6H PRN IV NAUSEA AND/OR VOMITING Last administered on 03/06/17 11:01; Admin Dose 4 MG; Start 03/03/17 at 22:00 Methylprednisolone Sodium Succinate (Solu-Medrol) 60 mg Q12H IV Last administered on 03/09/17 12:15; Admin Dose 60 MG; Start 03/07/17 at 12:00 JORJE NICHOLAS Mar 09, 2017 16:04
[2017-03-09 19:52] VITALS: BP 111/63; PULSE 91; RESP 18
[2017-03-10] MEDS: METHYLPREDNISOLONE 125 MG INJ IV SCH (00:16)
[2017-03-10] MEDS: PANTOPRAZOLE (EC) 40 MG TAB PO SCH (05:03)
[2017-03-10 05:45] LABS: ABNORMAL IP MESSAGE 1; BASOPHILS % 0.2 % (0.0-2.0); EOSINOPHILS % 0.1 % (0.0-7.0); HEMATOCRIT 27.2 % (37.0-47.0); HEMOGLOBIN 8.2 g/dl (12.0-16.0); LYMPHOCYTES # 0.4 10^3/ul (0.8-2.9); LYMPHOCYTES % 2.5 % (15.0-51.0); MEAN CORPUSCULAR HEMOGLOBIN 42.1 pg (29.0-33.0); MEAN CORPUSCULAR HGB CONC 30.1 g/dl (32.0-37.0); MEAN CORPUSCULAR VOLUME 139.5 fl (82.0-101.0); MEAN PLATELET VOLUME 11.5 fl (7.4-10.4); MONOCYTE # 1.1 10^3/ul (0.3-0.9); MONOCYTES % 6.3 % (0.0-11.0); NEUTROPHIL # 13.6 10^3/ul (1.6-7.5); NUCLEATED RED BLOOD CELLS% 599.7 /100WBC (0.0-0.0); PLATELET COUNT 106 10^3/UL (140-415); RED BLOOD COUNT 1.95 10^6/ul (4.20-5.40)
[2017-03-10 05:52] LABS: NUCLEATED RED BLOOD CELLS # 101.7 10^3/ul (0.0-0.0); POSITIVE DIFF @See below
[2017-03-10 06:05] LABS: CALCIUM 8.9 mg/dl (8.4-10.2); CREATININE 0.53 mg/dl (0.44-1.00); POTASSIUM 4.1 mmol/L (3.5-5.1)
[2017-03-10 08:28] VITALS: BP 110/68; RESP 18
[2017-03-10] MEDS: ACYCLOVIR 400 MG TAB PO SCH ×3 (08:55→21:27)
[2017-03-10] MEDS: MULTIVITAMINS THERAPEUTIC TAB PO SCH (08:55)
[2017-03-10] MEDS: MYCOPHENOLATE 250 MG CAP PO SCH ×2 (08:55→21:26)
[2017-03-10] MEDS: FOLIC ACID 1 MG TAB PO SCH (08:55)
[2017-03-10] MEDS ORDERED: METHYLPREDNISOLONE 125 MG INJ IV SCH (09:00)
[2017-03-10] MEDS: TRIMETHOPRIM/SULFAMETHOX (SS) TAB PO SCH (10:24)
--- NOTE | 2017-03-10 13:57 | PN ---
Date/Time of Note Date/Time of Note DATE: 03/10/17 TIME: 13:56 Assessment/Plan VTE Prophylaxis VTE Prophylaxis Intervention: SCD's Lines/Catheters IV [facility] Type (from [facility]): PICC Line Central line still needed: Yes Urinary Cath still in place: No Assessment/Plan Chief Complaint/Hosp Course Patient remains hemodynamically stable, hemoglobin is 8.2. Assessment/Plan - Autoimmune hemolytic anemia. The patient is a [employer] and cannot get a blood transfusion. Dr. Pak is following in hematology consultation. - Possible shingles, continue acyclovir, isolation. Further recommendations based on clinical course. Plan of care discussed with Dr. Will. Problems: Exam/Review of Systems Vital Signs Vitals Vital Signs Date Time Temp Pulse Resp B/P Pulse Ox O2 Delivery O2 Flow Rate FiO2 03/10/17 08:28 98.0 86 18 110/68 97 03/09/17 19:52 Room Air Intake and Output 03/09/17 03/09/17 03/10/17 15:00 23:00 07:00 Intake Total 1500 ml Balance 1500 ml Exam Constitutional: alert Neck: supple Respiratory: normal air movement Cardiovascular: nl pulses Gastrointestinal: non-tender, soft Extremities: normal pulses Neurological: nl mental status Skin: other (Left buttocks rash) Results Result Diagram: 03/10/17 0506 03/10/17 0506 Results 24 hrs Laboratory Tests Test 03/10/17 05:06 White Blood Count 17.0 #H Red Blood Count 1.95 L Hemoglobin 8.2 L Hematocrit 27.2 L Mean Corpuscular Volume 139.5 H Mean Corpuscular Hemoglobin 42.1 H Mean Corpuscular Hemoglobin Concent 30.1 L Red Cell Distribution Width Platelet Count 106 L Mean Platelet Volume 11.5 H Neutrophils % 80.0 H Lymphocytes % 2.5 L Monocytes % 6.3 Eosinophils % 0.1 Basophils % 0.2 Nucleated Red Blood Cells % 599.7 H Neutrophils # 13.6 H Lymphocytes # 0.4 L Monocytes # 1.1 H Eosinophils # 0.0 Basophils # 0.0 Nucleated Red Blood Cells # 101.7 H Sodium Level 138 Potassium Level 4.1 Chloride Level 101 Carbon Dioxide Level 30 Anion Gap 11 Blood Urea Nitrogen 18 Creatinine 0.53 Glucose Level 107 Calcium Level 8.9 Medications Medications Current Medications Pantoprazole (Protonix Tab) 40 mg DAILY@06 PO Last administered on 03/10/17 05 :03; Admin Dose 40 MG; Start 02/24/17 at 06:00 Acetaminophen (Tylenol Tab) 325 mg Q6H PRN PO PAIN AND OR ELEVATED TEMP Last administered on 03/03/17 21:16; Admin Dose 325 MG; Start 02/24/17 at 09:00 Trimethoprim/ Sulfamethoxazole (Bactrim (Ss)) 1 tab MONWEDFRI PO Last administered on 03/10/17 10:24; Admin Dose 1 TAB; Start 02/24/17 at 09:30 IV Flush (NS 10 ml) 10 ml PRN PRN IV IV PROTOCOL; Start 02/25/17 at 19:00 Epoetin Carroll (Epogen (Oncology)) 60,000 units Th@17 SC Last administered on 17:37; Admin Dose 60,000 UNITS; Start 02/27/17 at 12:00 Mycophenolate Mofetil (Cellcept) 1,000 mg BID PO Last administered on 08:55; Admin Dose 1,000 MG; Start 02/27/17 at 21:00 Folic Acid (Folic Acid) 1 mg DAILY PO Last administered on 03/10/17 08:55; Admin Dose 1 MG; Start 02/28/17 at 09:00 Multivitamins Therapeutic (Theragran) 1 tab DAILY PO Last administered on 08:55; Admin Dose 1 TAB; Start 02/28/17 at 09:00 Zolpidem Tartrate (Ambien) 5 mg HS PRN PO INSOMNIA Last administered on 22:08; Admin Dose 5 MG; Start 02/28/17 at 21:30 Acyclovir (Zovirax) 400 mg TID PO Last administered on 03/10/17 12:30; Admin Dose 400 MG; Start 03/03/17 at 09:00 Al Hydrox/Mg Hydrox/Simethicone (Mag-Al Plus) 30 ml Q4H PRN PO GASTROINTESTINAL UPSET; Start 03/03/17 at 22:00 Ondansetron HCl (Zofran Inj) 4 mg Q6H PRN IV NAUSEA AND/OR VOMITING Last administered on 03/06/17 11:01; Admin Dose 4 MG; Start 03/03/17 at 22:00 Methylprednisolone Sodium Succinate (Solu-Medrol) 60 mg DAILY IV Last administered on 03/10/17t 08:55; Admin Dose 60 MG; Start 03/10/17 at 09:00 SMITH BUSTAMANTE Mar 10, 2017 13:57
[2017-03-10 14:50] VITALS: BP 106/56; RESP 18
[2017-03-10 19:26] VITALS: BP 116/67; RESP 20
--- NOTE | 2017-03-10 20:48 | CONS ---
Date/Time of Note Date/Time of Note DATE: 03/10/17 TIME: 20:45 Assessment/Plan Assessment/Plan Chief Complaint/Hosp Course 31 y/o with cold agglutinan chronic hemolytic anemia with response to steroids in the past but unable to maintain her Hg once the steroid was tapered. 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 Pt is a [employer] and does not accept blood transfusion. response to steroids but whenever the dose of steroids are tapered, she develops symptomatic anemia,. Since she is Jehovah witness, she declines any blood products. Of note, Previous workup 12/11 did not show any abnormalities in peripheral blood cytogenetics, BCR ABL and had negative PNH workup. Pt was given Rituxan yesterday. Hg slowly rising, now > 6.5 (1) Autoimmune hemolytic anemia, cold antibody type Status: Acute Comment: -pt has col agglutinin disease. she is s/p IVIG and currently on steroids -decrease Solumedrol 60mg IV to q day -s/p 2nd dose o Rituxan 375mg/m2 today to be given weekly x 4 weeks. plan to given 3rd dose this friday -Cold Agglutinin titer at 1:4 -complement shows decrease of C3 -retic count is at 12% which shows bone marrow is trying to compensate -continue Cellcept 1000mg BID to help with hemolysis -SPEP and Serum ESTHER did not show evidence of monoclonal protein -continue folate and MVI -[facility] out patient referral -goal is to tap[er off steroids in house and ensure Hg does not drop. will plan to dc patient on cellcept (2) Refusal of blood transfusions as patient is [employer] Status: Chronic Comment: -will need to increase EPO to 60,000 unit q week. this was given last night -Ferrlecit x 5 days have continued (3) Back pain Status: Chronic Comment: -Tylenol po q 6 hours prn ordered Qualifiers: Back pain location: low back pain Chronicity: chronic Back pain laterality: right (4) Weakness generalized Status: Chronic Comment: -secondary to her anemia. -monitor sx as Hg rises. Problems: (1) Shingles rash Status: Acute Qualifiers: Herpes zoster complications: without complications Qualified Code: B02.9 - Herpes zoster without complication Problems: Consultation Date/Type/Reason Admit Date/Time Feb 21, 2017 at 17:22 Initial Consult Date 02/22/17 Type of Consultation: Hematology Reason for Consultation autoimmune hemolytic anemia Referring Provider: LUBA FERRARO 24 HR Interval Summary Free Text/Dictation Hg continues to rise. steroids were tapered yesterday Exam/Review of Systems Vital Signs Vitals Vital Signs Date Time Temp Pulse Resp B/P Pulse Ox O2 Delivery O2 Flow Rate FiO2 03/10/17 19:26 98.1 104 20 116/67 97 03/09/17 19:52 Room Air Intake and Output 03/09/17 03/09/17 03/10/17 15:00 23:00 07:00 Intake Total 1500 ml Balance 1500 ml Exam Constitutional: alert, oriented Psych: no complaints Head: normocephalic Eyes: nl conjunctiva ENMT: nl external ears & nose Neck: non-tender, supple Respiratory: clear to auscultation Cardiovascular: nl pulses, regular rate and rhythm Gastrointestinal: soft Musculoskeletal: nl extremities to inspection Results Result Diagram: 03/10/17 0506 03/10/17 0506 Results 24 hrs Laboratory Tests Test 03/10/17 05:06 White Blood Count 17.0 #H Red Blood Count 1.95 L Hemoglobin 8.2 L Hematocrit 27.2 L Mean Corpuscular Volume 139.5 H Mean Corpuscular Hemoglobin 42.1 H Mean Corpuscular Hemoglobin Concent 30.1 L Red Cell Distribution Width Platelet Count 106 L Mean Platelet Volume 11.5 H Neutrophils % 80.0 H Lymphocytes % 2.5 L Monocytes % 6.3 Eosinophils % 0.1 Basophils % 0.2 Nucleated Red Blood Cells % 599.7 H Neutrophils # 13.6 H Lymphocytes # 0.4 L Monocytes # 1.1 H Eosinophils # 0.0 Basophils # 0.0 Nucleated Red Blood Cells # 101.7 H Sodium Level 138 Potassium Level 4.1 Chloride Level 101 Carbon Dioxide Level 30 Anion Gap 11 Blood Urea Nitrogen 18 Creatinine 0.53 Glucose Level 107 Calcium Level 8.9 Medications Medications Current Medications Pantoprazole (Protonix Tab) 40 mg DAILY@06 PO Last administered on 03/10/17 05 :03; Admin Dose 40 MG; Start 02/24/17 at 06:00 Acetaminophen (Tylenol Tab) 325 mg Q6H PRN PO PAIN AND OR ELEVATED TEMP Last administered on 03/03/17 21:16; Admin Dose 325 MG; Start 02/24/17 at 09:00 Trimethoprim/ Sulfamethoxazole (Bactrim (Ss)) 1 tab MONWEDFRI PO Last administered on 03/10/17 10:24; Admin Dose 1 TAB; Start 02/24/17 at 09:30 IV Flush (NS 10 ml) 10 ml PRN PRN IV IV PROTOCOL; Start 02/25/17 at 19:00 Epoetin Carroll (Epogen (Oncology)) 60,000 units Th@17 SC Last administered on 17:37; Admin Dose 60,000 UNITS; Start 02/27/17 at 12:00 Mycophenolate Mofetil (Cellcept) 1,000 mg BID PO Last administered on 08:55; Admin Dose 1,000 MG; Start 02/27/17 at 21:00 Folic Acid (Folic Acid) 1 mg DAILY PO Last administered on 03/10/17 08:55; Admin Dose 1 MG; Start 02/28/17 at 09:00 Multivitamins Therapeutic (Theragran) 1 tab DAILY PO Last administered on 08:55; Admin Dose 1 TAB; Start 02/28/17 at 09:00 Zolpidem Tartrate (Ambien) 5 mg HS PRN PO INSOMNIA Last administered on 22:08; Admin Dose 5 MG; Start 02/28/17 at 21:30 Acyclovir (Zovirax) 400 mg TID PO Last administered on 03/10/17 12:30; Admin Dose 400 MG; Start 03/03/17 at 09:00 Al Hydrox/Mg Hydrox/Simethicone (Mag-Al Plus) 30 ml Q4H PRN PO GASTROINTESTINAL UPSET; Start 03/03/17 at 22:00 Ondansetron HCl (Zofran Inj) 4 mg Q6H PRN IV NAUSEA AND/OR VOMITING Last administered on 03/06/17 11:01; Admin Dose 4 MG; Start 03/03/17 at 22:00 Methylprednisolone Sodium Succinate (Solu-Medrol) 60 mg DAILY IV Last administered on 03/10/17 08:55; Admin Dose 60 MG; Start 03/10/17 at 09:00 PAMELA BENDER M.D. Mar 10, 2017 20:48
[2017-03-11 01:28] VITALS: BP 121/61; RESP 20
[2017-03-11] MEDS: PANTOPRAZOLE (EC) 40 MG TAB PO SCH (06:12)
[2017-03-11 07:07] LABS: ABNORMAL IP MESSAGE 1; HEMATOCRIT 27.4 % (37.0-47.0); HEMOGLOBIN 8.4 g/dl (12.0-16.0); MEAN CORPUSCULAR HEMOGLOBIN 42.9 pg (29.0-33.0); MEAN CORPUSCULAR HGB CONC 30.7 g/dl (32.0-37.0); MEAN CORPUSCULAR VOLUME 139.8 fl (82.0-101.0); MEAN PLATELET VOLUME 10.9 fl (7.4-10.4); NUCLEATED RED BLOOD CELLS% 595.7 /100WBC (0.0-0.0); PLATELET COUNT 119 10^3/UL (140-415); RED BLOOD COUNT 1.96 10^6/ul (4.20-5.40); RED CELL DISTRIBUTION WIDTH 30.4 % (11.5-14.5); WHITE BLOOD COUNT 12.4 10^3/ul (4.8-10.8)
[2017-03-11 07:11] LABS: POSITIVE DIFF @See below
[2017-03-11 08:00] VITALS: BP 107/56; RESP 20
[2017-03-11] MEDS: MYCOPHENOLATE 250 MG CAP PO SCH ×2 (08:51→21:21)
[2017-03-11] MEDS: ACYCLOVIR 400 MG TAB PO SCH ×3 (08:52→21:21)
[2017-03-11] MEDS: MULTIVITAMINS THERAPEUTIC TAB PO SCH (08:52)
[2017-03-11] MEDS: FOLIC ACID 1 MG TAB PO SCH (08:52)
[2017-03-11 09:43] LABS: ANISOCYTOSIS 3+ (0-0); EOSINOPHILS % (M) 2 % (0-7); ERYTHROBLAST% (NRBC) (M) 426 % (0-0); HYPOCHROMASIA 1+ (0-0); METAMYELOCYTES %M 3 % (0-0); MONOCYTES % (M) 11 % (0-11); PLATELET ESTIMATE NORMAL; POIKILOCYTOSIS 1+ (0-0); POLYCHROMASIA 2+ (0-0)
[2017-03-11 14:11] VITALS: BP 112/60; RESP 18
--- NOTE | 2017-03-11 14:17 | PN ---
Date/Time of Note Date/Time of Note DATE: 03/11/17 TIME: 14:16 Assessment/Plan VTE Prophylaxis VTE Prophylaxis Intervention: SCD's Lines/Catheters IV [facility] Type (from [facility]): PICC Line Central line still needed: Yes Urinary Cath still in place: No Assessment/Plan Chief Complaint/Hosp Course Patient is currently off steroids, continue to monitor hemoglobin and hematocrit , plan for Rituxan dose tomorrow. Assessment/Plan - Autoimmune hemolytic anemia. The patient is a Nondenominational and cannot get a blood transfusion. Dr. Pak is following in hematology consultation. - Possible shingles, continue acyclovir, isolation. Further recommendations based on clinical course. Plan of care discussed with Dr. Will. Problems: Exam/Review of Systems Vital Signs Vitals Vital Signs Date Time Temp Pulse Resp B/P Pulse Ox O2 Delivery O2 Flow Rate FiO2 03/11/17 14:11 98.3 103 18 112/60 97 03/09/17 19:52 Room Air Intake and Output 03/10/17 03/10/17 03/11/17 15:00 23:00 07:00 Intake Total 1320 ml 700 ml Balance 1320 ml 700 ml Exam Constitutional: alert Neck: supple Respiratory: normal air movement Cardiovascular: nl pulses Gastrointestinal: non-tender, soft Extremities: normal pulses Neurological: nl mental status Skin: other (Left buttocks rash) Results Result Diagram: 03/11/17 0630 03/10/17 0506 Results 24 hrs Laboratory Tests Test 03/11/17 06:30 White Blood Count 12.4 #H Red Blood Count 1.96 L Hemoglobin 8.4 L Hematocrit 27.4 L Mean Corpuscular Volume 139.8 H Mean Corpuscular Hemoglobin 42.9 H Mean Corpuscular Hemoglobin Concent 30.7 L Red Cell Distribution Width 30.4 H Platelet Count 119 L Mean Platelet Volume 10.9 H Neutrophils % Segmented Neutrophils % (Manual) 71 Band Neutrophils % (Manual) 3 Lymphocytes % Lymphocytes % (Manual) 11 L Monocytes % Monocytes % (Manual) 11 Eosinophils % Eosinophils % (Manual) 2 Basophils % Metamyelocytes % (manual) 3 H Nucleated Red Blood Cells % 426 H Neutrophils # (Manual) 8.8 H Band Neutrophils # 0.3 Absolute Lymphocytes (Manual) 1.3 Lymphocytes # Monocytes # Absolute Monocytes (Manual) 1.3 H Eosinophils # Basophils # Metamyelocytes # 0.3 H Nucleated Red Blood Cells # Platelet Estimate NORMAL Dimorphic Red Blood Cells 2+ Polychromasia 2+ Hypochromasia 1+ Poikilocytosis 1+ Anisocytosis 3+ Macrocytosis 3+ Medications Medications Current Medications Pantoprazole (Protonix Tab) 40 mg DAILY@06 PO Last administered on 03/11/17 06 :12; Admin Dose 40 MG; Start 02/24/17 at 06:00 Acetaminophen (Tylenol Tab) 325 mg Q6H PRN PO PAIN AND OR ELEVATED TEMP Last administered on 03/03/17 21:16; Admin Dose 325 MG; Start 02/24/17 at 09:00 Trimethoprim/ Sulfamethoxazole (Bactrim (Ss)) 1 tab MONWEDFRI PO Last administered on 03/10/17 10:24; Admin Dose 1 TAB; Start 02/24/17 at 09:30 IV Flush (NS 10 ml) 10 ml PRN PRN IV IV PROTOCOL; Start 02/25/17 at 19:00 Epoetin Carroll (Epogen (Oncology)) 60,000 units Th@17 SC Last administered on 17:37; Admin Dose 60,000 UNITS; Start 02/27/17 at 12:00 Mycophenolate Mofetil (Cellcept) 1,000 mg BID PO Last administered on 08:51; Admin Dose 1,000 MG; Start 02/27/17 at 21:00 Folic Acid (Folic Acid) 1 mg DAILY PO Last administered on 03/11/17 08:52; Admin Dose 1 MG; Start 02/28/17 at 09:00 Multivitamins Therapeutic (Theragran) 1 tab DAILY PO Last administered on 08:52; Admin Dose 1 TAB; Start 02/28/17 at 09:00 Zolpidem Tartrate (Ambien) 5 mg HS PRN PO INSOMNIA Last administered on 22:08; Admin Dose 5 MG; Start 02/28/17 at 21:30 Acyclovir (Zovirax) 400 mg TID PO Last administered on 03/11/17 08:52; Admin Dose 400 MG; Start 03/03/17 at 09:00 Al Hydrox/Mg Hydrox/Simethicone (Mag-Al Plus) 30 ml Q4H PRN PO GASTROINTESTINAL UPSET; Start 03/03/17 at 22:00 Ondansetron HCl (Zofran Inj) 4 mg Q6H PRN IV NAUSEA AND/OR VOMITING Last administered on 03/06/17t 11:01; Admin Dose 4 MG; Start 03/03/17 at 22:00 SMITH BUSTAMANTE Mar 11, 2017 14:17
--- NOTE | 2017-03-11 16:59 | CONS ---
Date/Time of Note Date/Time of Note DATE: 03/11/17 TIME: 16:57 Assessment/Plan Assessment/Plan Chief Complaint/Hosp Course 31 y/o with cold agglutinan chronic hemolytic anemia with response to steroids in the past but unable to maintain her Hg once the steroid was tapered. 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 Pt is a [employer] and does not accept blood transfusion. response to steroids but whenever the dose of steroids are tapered, she develops symptomatic anemia,. Since she is Jehov[employer] witness, she declines any blood products. Of note, Previous workup 12/11 did not show any abnormalities in peripheral blood cytogenetics, BCR ABL and had negative PNH workup. Pt was given Rituxan yesterday. Hg slowly rising, now > 8.0 (1) Autoimmune hemolytic anemia, cold antibody type Status: Acute Comment: -pt has col agglutinin disease. she is s/p IVIG and currently on steroids -discontinue Solumedrol 60mg IV for now -s/p 2nd dose o Rituxan 375mg/m2 today to be given weekly x 4 weeks. plan to given 3rd dose this friday -Cold Agglutinin titer at 1:4 -complement shows decrease of C3 -retic count is at 12% which shows bone marrow is trying to compensate -continue Cellcept 1000mg BID to help with hemolysis -SPEP and Serum ESTHER did not show evidence of monoclonal protein -continue folate and MVI -[facility] out patient referral -goal is to tap[er off steroids in house and ensure Hg does not drop. will plan to dc patient on cellcept (2) Refusal of blood transfusions as patient is [employer] Status: Chronic Comment: -will need to increase EPO to 60,000 unit q week. this was given last night -Ferrlecit x 5 days have continued (3) Back pain Status: Chronic Comment: -Tylenol po q 6 hours prn ordered Qualifiers: Back pain location: low back pain Chronicity: chronic Back pain laterality: right (4) Weakness generalized Status: Chronic Comment: -secondary to her anemia. -monitor sx as Hg rises. Problems: (1) Shingles rash Status: Acute Qualifiers: Herpes zoster complications: without complications Qualified Code: B02.9 - Herpes zoster without complication Problems: Consultation Date/Type/Reason Admit Date/Time Feb 21, 2017 at 17:22 Initial Consult Date 02/22/17 Type of Consultation: Hematology Reason for Consultation autoimmune hemolytic anemia Referring Provider: LUBA FERRARO 24 HR Interval Summary Free Text/Dictation no acute overnight events. pt's Hg is responding well Exam/Review of Systems Vital Signs Vitals Vital Signs Date Time Temp Pulse Resp B/P Pulse Ox O2 Delivery O2 Flow Rate FiO2 03/11/17 14:11 98.3 103 18 112/60 97 03/09/17 19:52 Room Air Intake and Output 03/10/17 03/10/17 03/11/17 14:59 22:59 06:59 Intake Total 1320 ml 700 ml Balance 1320 ml 700 ml Exam Constitutional: alert, oriented Psych: no complaints Head: normocephalic Eyes: nl conjunctiva ENMT: nl external ears & nose Neck: non-tender, supple Respiratory: clear to auscultation, normal air movement Cardiovascular: nl pulses, regular rate and rhythm Gastrointestinal: soft Musculoskeletal: nl extremities to inspection, nl gait and stance Results Result Diagram: 03/11/17 0630 03/10/17 0506 Results 24 hrs Laboratory Tests Test 03/11/17 06:30 White Blood Count 12.4 #H Red Blood Count 1.96 L Hemoglobin 8.4 L Hematocrit 27.4 L Mean Corpuscular Volume 139.8 H Mean Corpuscular Hemoglobin 42.9 H Mean Corpuscular Hemoglobin Concent 30.7 L Red Cell Distribution Width 30.4 H Platelet Count 119 L Mean Platelet Volume 10.9 H Neutrophils % Segmented Neutrophils % (Manual) 71 Band Neutrophils % (Manual) 3 Lymphocytes % Lymphocytes % (Manual) 11 L Monocytes % Monocytes % (Manual) 11 Eosinophils % Eosinophils % (Manual) 2 Basophils % Metamyelocytes % (manual) 3 H Nucleated Red Blood Cells % 426 H Neutrophils # (Manual) 8.8 H Band Neutrophils # 0.3 Absolute Lymphocytes (Manual) 1.3 Lymphocytes # Monocytes # Absolute Monocytes (Manual) 1.3 H Eosinophils # Basophils # Metamyelocytes # 0.3 H Nucleated Red Blood Cells # Platelet Estimate NORMAL Dimorphic Red Blood Cells 2+ Polychromasia 2+ Hypochromasia 1+ Poikilocytosis 1+ Anisocytosis 3+ Macrocytosis 3+ Medications Medications Current Medications Pantoprazole (Protonix Tab) 40 mg DAILY@06 PO Last administered on 03/11/17 06 :12; Admin Dose 40 MG; Start 02/24/17 at 06:00 Acetaminophen (Tylenol Tab) 325 mg Q6H PRN PO PAIN AND OR ELEVATED TEMP Last administered on 03/03/17 21:16; Admin Dose 325 MG; Start 02/24/17 at 09:00 Trimethoprim/ Sulfamethoxazole (Bactrim (Ss)) 1 tab MONWEDFRI PO Last administered on 03/10/17 10:24; Admin Dose 1 TAB; Start 02/24/17 at 09:30 IV Flush (NS 10 ml) 10 ml PRN PRN IV IV PROTOCOL; Start 02/25/17 at 19:00 Epoetin Carroll (Epogen (Oncology)) 60,000 units Th@17 SC Last administered on 17:37; Admin Dose 60,000 UNITS; Start 02/27/17 at 12:00 Mycophenolate Mofetil (Cellcept) 1,000 mg BID PO Last administered on 08:51; Admin Dose 1,000 MG; Start 02/27/17 at 21:00 Folic Acid (Folic Acid) 1 mg DAILY PO Last administered on 03/11/17 08:52; Admin Dose 1 MG; Start 02/28/17 at 09:00 Multivitamins Therapeutic (Theragran) 1 tab DAILY PO Last administered on 08:52; Admin Dose 1 TAB; Start 02/28/17 at 09:00 Zolpidem Tartrate (Ambien) 5 mg HS PRN PO INSOMNIA Last administered on 22:08; Admin Dose 5 MG; Start 02/28/17 at 21:30 Acyclovir (Zovirax) 400 mg TID PO Last administered on 03/11/17 14:27; Admin Dose 400 MG; Start 03/03/17 at 09:00 Al Hydrox/Mg Hydrox/Simethicone (Mag-Al Plus) 30 ml Q4H PRN PO GASTROINTESTINAL UPSET; Start 03/03/17 at 22:00 Ondansetron HCl (Zofran Inj) 4 mg Q6H PRN IV NAUSEA AND/OR VOMITING Last administered on 03/06/17 11:01; Admin Dose 4 MG; Start 03/03/17 at 22:00 PAMELA BENDER M.D. Mar 11, 2017 16:58
[2017-03-11 20:30] VITALS: BP 108/69; RESP 20
[2017-03-11] MEDS: ACETAMINOPHEN 325 MG TAB PO PRN (21:25)
[2017-03-11 23:29] VITALS: BP 106/56; RESP 20
[2017-03-12] VITALS (11 sets, daily range): BP systolic 98–164; BP diastolic 55–68; PULSE 84–107; RESP 18–20
[2017-03-12] MEDS: PANTOPRAZOLE (EC) 40 MG TAB PO SCH (04:42)
[2017-03-12 05:36] LABS: ABNORMAL IP MESSAGE 1; HEMATOCRIT 28.3 % (37.0-47.0); HEMOGLOBIN 8.8 g/dl (12.0-16.0); MEAN CORPUSCULAR HEMOGLOBIN 43.3 pg (29.0-33.0); MEAN CORPUSCULAR HGB CONC 31.1 g/dl (32.0-37.0); MEAN CORPUSCULAR VOLUME 139.4 fl (82.0-101.0); MEAN PLATELET VOLUME 11.3 fl (7.4-10.4); NUCLEATED RED BLOOD CELLS% 443.6 /100WBC (0.0-0.0); PLATELET COUNT 139 10^3/UL (140-415); RED BLOOD COUNT 2.03 10^6/ul (4.20-5.40); WHITE BLOOD COUNT 9.1 10^3/ul (4.8-10.8)
[2017-03-12 05:59] LABS: POSITIVE DIFF @See below
--- NOTE | 2017-03-12 09:00 | CONS ---
Date/Time of Note Date/Time of Note DATE: 03/12/17 TIME: 08:59 Assessment/Plan Assessment/Plan Chief Complaint/Hosp Course 31 y/o with cold agglutinan chronic hemolytic anemia with response to steroids in the past but unable to maintain her Hg once the steroid was tapered. 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 response to steroids but whenever the dose of steroids are tapered, she develops symptomatic anemia,. Since she is Jehovah witness, she declines any blood products. Of note, Previous workup 12/11 did not show any abnormalities in peripheral blood cytogenetics, BCR ABL and had negative PNH workup. Pt was given Rituxan yesterday. Hg slowly rising, now > 8.0 (1) Autoimmune hemolytic anemia, cold antibody type Status: Acute Comment: -pt has col agglutinin disease. she is s/p IVIG and currently on steroids -discontinue Solumedrol 60mg IV for now -s/p 2nd dose o Rituxan 375mg/m2 today to be given weekly x 4 weeks. plan to given 3rd dose today -Cold Agglutinin titer at 1:4 -complement shows decrease of C3 -retic count is at 12% which shows bone marrow is trying to compensate -continue Cellcept 1000mg BID to help with hemolysis -SPEP and Serum ESTHER did not show evidence of monoclonal protein -continue folate and MVI -[facility] out patient referral -goal is to tap[er off steroids in house and ensure Hg does not drop. will plan to dc patient on cellcept (2) Refusal of blood transfusions as patient is [employer] Status: Chronic Comment: -will need to increase EPO to 60,000 unit q week. this was given last night -Ferrlecit x 5 days have continued (3) Back pain Status: Chronic Comment: -Tylenol po q 6 hours prn ordered Qualifiers: Back pain location: low back pain Chronicity: chronic Back pain laterality: right (4) Weakness generalized Status: Chronic Comment: -secondary to her anemia. -monitor sx as Hg rises. Problems: (1) Shingles rash Status: Acute Qualifiers: Herpes zoster complications: without complications Qualified Code: B02.9 - Herpes zoster without complication Problems: Consultation Date/Type/Reason Admit Date/Time Feb 21, 2017 at 17:22 Initial Consult Date 02/22/17 Type of Consultation: Hematology Reason for Consultation autoimmune hemolytic anemia Referring Provider: LUBA FERRARO 24 HR Interval Summary Free Text/Dictation pt doing well. no acute overnight events Exam/Review of Systems Vital Signs Vitals Vital Signs Date Time Temp Pulse Resp B/P Pulse Ox O2 Delivery O2 Flow Rate FiO2 03/12/17 08:11 98.1 92 18 164/65 96 03/09/17 19:52 Room Air Intake and Output 03/11/17 03/11/17 03/12/17 15:00 23:00 07:00 Intake Total 640 ml 880 ml Balance 640 ml 880 ml Exam Constitutional: alert, oriented Psych: no complaints Head: normocephalic Eyes: nl conjunctiva ENMT: nl external ears & nose Neck: non-tender, supple Respiratory: clear to auscultation Cardiovascular: regular rate and rhythm Gastrointestinal: soft Musculoskeletal: nl extremities to inspection Extremities: normal pulses Neurological: ASSIST[employer] II-XII intact Results Result Diagram: 03/12/17 0443 03/10/17 0506 Results 24 hrs Laboratory Tests Test 03/12/17 04:43 White Blood Count 9.1 # Red Blood Count 2.03 L Hemoglobin 8.8 L Hematocrit 28.3 L Mean Corpuscular Volume 139.4 H Mean Corpuscular Hemoglobin 43.3 H Mean Corpuscular Hemoglobin Concent 31.1 L Red Cell Distribution Width 29.0 H Platelet Count 139 L Mean Platelet Volume 11.3 H Neutrophils % Lymphocytes % Monocytes % Eosinophils % Basophils % Nucleated Red Blood Cells % 443.6 H Neutrophils # (Manual) 6.3 Lymphocytes # Monocytes # Eosinophils # Basophils # Nucleated Red Blood Cells # Medications Medications Current Medications Pantoprazole (Protonix Tab) 40 mg DAILY@06 PO Last administered on 03/12/17 04 :42; Admin Dose 40 MG; Start 02/24/17 at 06:00 Acetaminophen (Tylenol Tab) 325 mg Q6H PRN PO PAIN AND OR ELEVATED TEMP Last administered on 03/11/17 21:25; Admin Dose 325 MG; Start 02/24/17 at 09:00 Trimethoprim/ Sulfamethoxazole (Bactrim (Ss)) 1 tab MONWEDFRI PO Last administered on 03/10/17 10:24; Admin Dose 1 TAB; Start 02/24/17 at 09:30 IV Flush (NS 10 ml) 10 ml PRN PRN IV IV PROTOCOL; Start 02/25/17 at 19:00 Epoetin Carroll (Epogen (Oncology)) 60,000 units Th@17 SC Last administered on 17:37; Admin Dose 60,000 UNITS; Start 02/27/17 at 12:00 Mycophenolate Mofetil (Cellcept) 1,000 mg BID PO Last administered on 21:21; Admin Dose 1,000 MG; Start 02/27/17 at 21:00 Folic Acid (Folic Acid) 1 mg DAILY PO Last administered on 03/11/17 08:52; Admin Dose 1 MG; Start 02/28/17 at 09:00 Multivitamins Therapeutic (Theragran) 1 tab DAILY PO Last administered on 08:52; Admin Dose 1 TAB; Start 02/28/17 at 09:00 Zolpidem Tartrate (Ambien) 5 mg HS PRN PO INSOMNIA Last administered on 22:08; Admin Dose 5 MG; Start 02/28/17 at 21:30 Acyclovir (Zovirax) 400 mg TID PO Last administered on 03/11/17 21:21; Admin Dose 400 MG; Start 03/03/17 at 09:00 Al Hydrox/Mg Hydrox/Simethicone (Mag-Al Plus) 30 ml Q4H PRN PO GASTROINTESTINAL UPSET; Start 03/03/17 at 22:00 Ondansetron HCl (Zofran Inj) 4 mg Q6H PRN IV NAUSEA AND/OR VOMITING Last administered on 03/06/17 11:01; Admin Dose 4 MG; Start 03/03/17 at 22:00 PAMELA BENDER M.D. Mar 12, 2017 09:00
[2017-03-12 09:48] LABS: ANISOCYTOSIS 3+ (0-0); ERYTHROBLAST% (NRBC) (M) 631 % (0-0); HYPOCHROMASIA 1+ (0-0); MICROCYTOSIS 2+ (0-0); MONOCYTES % (M) 8 % (0-11); PLATELET ESTIMATE DECREASED; POIKILOCYTOSIS 3+ (0-0); POLYCHROMASIA 2+ (0-0)
[2017-03-12] MEDS: MYCOPHENOLATE 250 MG CAP PO SCH ×2 (09:52→20:38)
[2017-03-12] MEDS: FOLIC ACID 1 MG TAB PO SCH (09:52)
[2017-03-12] MEDS: MULTIVITAMINS THERAPEUTIC TAB PO SCH (09:52)
[2017-03-12] MEDS: ACYCLOVIR 400 MG TAB PO SCH ×3 (09:52→20:38)
[2017-03-12] MEDS: TRIMETHOPRIM/SULFAMETHOX (SS) TAB PO SCH (11:18)
--- NOTE | 2017-03-12 13:18 | PN ---
Date/Time of Note Date/Time of Note DATE: 03/12/17 TIME: 13:17 Assessment/Plan VTE Prophylaxis VTE Prophylaxis Intervention: SCD's Lines/Catheters IV [facility] Type (from [facility] PICC Line Central line still needed: Yes Urinary Cath still in place: No Assessment/Plan Chief Complaint/Hosp Course Pending Rituxan infusion today, remains hemodynamically stable. Assessment/Plan - Autoimmune hemolytic anemia. The patient is a [employer] and cannot get a blood transfusion. Dr. Pak is following in hematology consultation. - Possible shingles, continue acyclovir, isolation. Further recommendations based on clinical course. Plan of care discussed with Dr. Will. Problems: Exam/Review of Systems Vital Signs Vitals Vital Signs Date Time Temp Pulse Resp B/P Pulse Ox O2 Delivery O2 Flow Rate FiO2 03/12/17 08:11 98.1 92 18 164/65 96 03/09/17 19:52 Room Air Intake and Output 03/11/17 03/11/17 03/12/17 15:00 23:00 07:00 Intake Total 640 ml 880 ml Balance 640 ml 880 ml Exam Constitutional: alert Neck: supple Respiratory: normal air movement Cardiovascular: nl pulses Gastrointestinal: non-tender, soft Extremities: normal pulses Neurological: nl mental status Skin: other (Left buttocks rash) Results Result Diagram: 03/12/17 0443 03/10/17 0506 Results 24 hrs Laboratory Tests Test 03/12/17 04:43 White Blood Count 9.1 # Red Blood Count 2.03 L Hemoglobin 8.8 L Hematocrit 28.3 L Mean Corpuscular Volume 139.4 H Mean Corpuscular Hemoglobin 43.3 H Mean Corpuscular Hemoglobin Concent 31.1 L Red Cell Distribution Width 29.0 H Platelet Count 139 L Mean Platelet Volume 11.3 H Neutrophils % Segmented Neutrophils % (Manual) 67 Band Neutrophils % (Manual) 5 H Lymphocytes % Lymphocytes % (Manual) 21 Monocytes % Monocytes % (Manual) 8 Eosinophils % Basophils % Nucleated Red Blood Cells % 631 H Neutrophils # (Manual) 6.1 Band Neutrophils # 0.4 Absolute Lymphocytes (Manual) 1.9 Lymphocytes # Monocytes # Absolute Monocytes (Manual) 0.7 Eosinophils # Basophils # Nucleated Red Blood Cells # Platelet Estimate DECREASED Polychromasia 2+ Hypochromasia 1+ Poikilocytosis 3+ Anisocytosis 3+ Microcytosis 2+ Macrocytosis 1+ Medications Medications Current Medications Pantoprazole (Protonix Tab) 40 mg DAILY@06 PO Last administered on 03/12/17 04 :42; Admin Dose 40 MG; Start 02/24/17 at 06:00 Acetaminophen (Tylenol Tab) 325 mg Q6H PRN PO PAIN AND OR ELEVATED TEMP Last administered on 03/11/17 21:25; Admin Dose 325 MG; Start 02/24/17 at 09:00 Trimethoprim/ Sulfamethoxazole (Bactrim (Ss)) 1 tab MONWEDFRI PO Last administered on 03/12/17 11:18; Admin Dose 1 TAB; Start 02/24/17 at 09:30 IV Flush (NS 10 ml) 10 ml PRN PRN IV IV PROTOCOL; Start 02/25/17 at 19:00 Epoetin Carroll (Epogen (Oncology)) 60,000 units Th@17 SC Last administered on 17:37; Admin Dose 60,000 UNITS; Start 02/27/17 at 12:00 Mycophenolate Mofetil (Cellcept) 1,000 mg BID PO Last administered on 09:52; Admin Dose 1,000 MG; Start 02/27/17 at 21:00 Folic Acid (Folic Acid) 1 mg DAILY PO Last administered on 03/12/17 09:52; Admin Dose 1 MG; Start 02/28/17 at 09:00 Multivitamins Therapeutic (Theragran) 1 tab DAILY PO Last administered on 09:52; Admin Dose 1 TAB; Start 02/28/17 at 09:00 Zolpidem Tartrate (Ambien) 5 mg HS PRN PO INSOMNIA Last administered on 22:08; Admin Dose 5 MG; Start 02/28/17 at 21:30 Acyclovir (Zovirax) 400 mg TID PO Last administered on 03/12/17 09:52; Admin Dose 400 MG; Start 03/03/17 at 09:00 Al Hydrox/Mg Hydrox/Simethicone (Mag-Al Plus) 30 ml Q4H PRN PO GASTROINTESTINAL UPSET; Start 03/03/17 at 22:00 Ondansetron HCl (Zofran Inj) 4 mg Q6H PRN IV NAUSEA AND/OR VOMITING Last administered on 03/06/17 11:01; Admin Dose 4 MG; Start 03/03/17 at 22:00 SMITH BUSTAMANTE Mar 12, 2017 13:18
[2017-03-12] MEDS ORDERED: MEPERIDINE 25 MG INJ IV PRN (15:00)
[2017-03-12] MEDS ORDERED: METHYLPREDNISOLONE 125 MG INJ IV PRN (15:00)
[2017-03-12] MEDS ORDERED: DIPHENHYDRAMINE 50 MG INJ IV PRN (15:00)
[2017-03-12] MEDS: SOD CHLORIDE 0.9% 1,000 ML IV SCH (15:52)
[2017-03-12] MEDS ORDERED: DEXAMETHASONE 10 MG/ML 1 ML INJ IV SCH (16:00)
[2017-03-12] MEDS ORDERED: DIPHENHYDRAMINE 50 MG INJ IV SCH (16:00)
[2017-03-12] MEDS ORDERED: SOD CHLORIDE 0.9% IV SCH (16:00)
[2017-03-12] MEDS ORDERED: RITUXIMAB IV SCH (16:00)
[2017-03-12] MEDS ORDERED: ACETAMINOPHEN 325 MG TAB PO SCH (16:00)
[2017-03-13 00:29] VITALS: BP 99/66; PULSE 10; RESP 18
[2017-03-13 01:37] VITALS: BP 103/62; PULSE 91; RESP 18
[2017-03-13 01:56] VITALS: BP 102/68; RESP 18
[2017-03-13] MEDS: SOD CHLORIDE 0.9% 1,000 ML IV SCH (03:36)
[2017-03-13 05:22] LABS: ABNORMAL IP MESSAGE 1; HEMATOCRIT 27.9 % (37.0-47.0); HEMOGLOBIN 8.6 g/dl (12.0-16.0); MEAN CORPUSCULAR HGB CONC 30.8 g/dl (32.0-37.0); MEAN CORPUSCULAR VOLUME 132.9 fl (82.0-101.0); MEAN PLATELET VOLUME 11.1 fl (7.4-10.4); NUCLEATED RED BLOOD CELLS% 141.3 /100WBC (0.0-0.0); PLATELET COUNT 146 10^3/UL (140-415); RED CELL DISTRIBUTION WIDTH 26.8 % (11.5-14.5); WHITE BLOOD COUNT 7.6 10^3/ul (4.8-10.8)
[2017-03-13] MEDS: PANTOPRAZOLE (EC) 40 MG TAB PO SCH (05:34)
[2017-03-13 05:35] LABS: CALCIUM 8.5 mg/dl (8.4-10.2); CREATININE 0.41 mg/dl (0.44-1.00)
[2017-03-13 05:39] LABS: POSITIVE DIFF @See below
[2017-03-13 08:16] VITALS: BP 105/60; RESP 18
[2017-03-13] MEDS: MULTIVITAMINS THERAPEUTIC TAB PO SCH (08:36)
[2017-03-13] MEDS: ACYCLOVIR 400 MG TAB PO SCH ×2 (08:37→13:16)
[2017-03-13] MEDS: FOLIC ACID 1 MG TAB PO SCH (08:37)
[2017-03-13] MEDS: MYCOPHENOLATE 250 MG CAP PO SCH (08:37)
[2017-03-13 09:19] LABS: ANISOCYTOSIS 3+ (0-0); ERYTHROBLAST% (NRBC) (M) 158 % (0-0); MICROCYTOSIS 2+ (0-0); MONOCYTES % (M) 1 % (0-11); MYELOCYTES % (M) 1 % (0.0-0.0); PLATELET ESTIMATE NORMAL; POIKILOCYTOSIS 1+ (0-0); POLYCHROMASIA 3+ (0-0); SPHEROCYTES 1+ (0-0)
--- NOTE | 2017-03-13 09:35 | CONS ---
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 response to steroids but whenever the dose of steroids are tapered, she develops symptomatic anemia,. Since she is Jehovah witness, she declines any blood products. Of note, Previous workup 12/11 did not show any abnormalities in peripheral blood cytogenetics, BCR ABL and had negative PNH workup. Pt was given Rituxan yesterday. Hg slowly rising, now stable and > 8.0 OFF STEROIDS (1) Autoimmune hemolytic anemia, cold antibody type Status: Acute Comment: -pt has col agglutinin disease. she is s/p IVIG and currently on steroids -discontinue Solumedrol 60mg IV for now -s/p 2nd dose o Rituxan 375mg/m2 today to be given weekly x 4 weeks. plan to given 3rd dose today -Cold Agglutinin titer at 1:4 -complement shows decrease of C3 -retic count is at 12% which shows bone marrow is trying to compensate -continue Cellcept 1000mg BID to help with hemolysis -SPEP and Serum ESTHER did not show evidence of monoclonal protein -continue folate and MVI -[facility] out patient referral -plan to dc patient on cellcept -DC PICC -OK FOR DC FROM [facility] STANDPOINT (2) Refusal of blood transfusions as patient is Zoroastrianism Status: Chronic Comment: -continue EPO to 60,000 unit q week as an out patient -Ferrlecit x 5 days have continued (3) Back pain Status: Chronic Comment: -Tylenol po q 6 hours prn ordered Qualifiers: Back pain location: low back pain Chronicity: chronic Back pain laterality: right (4) Weakness generalized Status: Chronic Comment: -secondary to her anemia. -monitor sx as Hg rises. Problems: (1) Shingles rash Status: Acute Qualifiers: Herpes zoster complications: without complications Qualified Code: B02.9 - Herpes zoster without complication Problems: Consultation Date/Type/Reason Admit Date/Time Feb 21, 2017 at 17:22 Initial Consult Date 02/22/17 Type of Consultation: Hematology Reason for Consultation autoimmune hemolytic anemia Referring Provider: LUBA FERRARO 24 HR Interval Summary Free Text/Dictation pt received her Rituxan yesterday. feels better. Hg stable Exam/Review of Systems Vital Signs Vitals Vital Signs Date Time Temp Pulse Resp B/P Pulse Ox O2 Delivery O2 Flow Rate FiO2 03/13/17 08:16 98.2 76 18 105/60 98 03/13/17 01:56 Room Air Intake and Output 03/12/17 03/12/17 03/13/17 15:00 23:00 07:00 Intake Total 150 ml 1632.5 ml Balance 150 ml 1632.5 ml Exam Constitutional: alert, oriented Psych: no complaints Eyes: nl conjunctiva ENMT: nl external ears & nose Neck: non-tender, supple Respiratory: clear to auscultation Cardiovascular: regular rate and rhythm Gastrointestinal: soft Musculoskeletal: nl extremities to inspection, nl gait and stance Extremities: normal pulses Results Result Diagram: 03/13/17 0440 03/13/17 0440 Results 24 hrs Laboratory Tests Test 03/13/17 04:40 White Blood Count 7.6 Red Blood Count 2.10 L Hemoglobin 8.6 L Hematocrit 27.9 L Mean Corpuscular Volume 132.9 H Mean Corpuscular Hemoglobin 41.0 H Mean Corpuscular Hemoglobin Concent 30.8 L Red Cell Distribution Width 26.8 H Platelet Count 146 Mean Platelet Volume 11.1 H Neutrophils % Segmented Neutrophils % (Manual) 88 H Lymphocytes % Lymphocytes % (Manual) 10 L Monocytes % Monocytes % (Manual) 1 Eosinophils % Basophils % Myelocytes % (Manual) 1 H Nucleated Red Blood Cells % 158 H Neutrophils # (Manual) Absolute Lymphocytes (Manual) 0.7 L Lymphocytes # Monocytes # Absolute Monocytes (Manual) 0.0 L Eosinophils # Basophils # Myelocytes # 0.0 Nucleated Red Blood Cells # Platelet Estimate NORMAL Polychromasia 3+ Poikilocytosis 1+ Anisocytosis 3+ Microcytosis 2+ Macrocytosis 2+ Spherocytes 1+ Sodium Level 141 Potassium Level 4.0 Chloride Level 103 Carbon Dioxide Level 27 Anion Gap 15 Blood Urea Nitrogen 16 Creatinine 0.41 L Glucose Level 112 Calcium Level 8.5 Medications Medications Current Medications Pantoprazole (Protonix Tab) 40 mg DAILY@06 PO Last administered on 03/13/17t 05 :34; Admin Dose 40 MG; Start 7/31/17 at 06:00 Acetaminophen (Tylenol Tab) 325 mg Q6H PRN PO PAIN AND OR ELEVATED TEMP Last administered on 03/11/17 21:25; Admin Dose 325 MG; Start 02/24/17 at 09:00 Trimethoprim/ Sulfamethoxazole (Bactrim (Ss)) 1 tab MONWEDFRI PO Last administered on 03/12/17 11:18; Admin Dose 1 TAB; Start 02/24/17 at 09:30 IV Flush (NS 10 ml) 10 ml PRN PRN IV IV PROTOCOL; Start 02/25/17 at 19:00 Epoetin Carroll (Epogen (Oncology)) 60,000 units Th@17 SC Last administered on 17:37; Admin Dose 60,000 UNITS; Start 02/27/17 at 12:00 Mycophenolate Mofetil (Cellcept) 1,000 mg BID PO Last administered on 08:37; Admin Dose 1,000 MG; Start 02/27/17 at 21:00 Folic Acid (Folic Acid) 1 mg DAILY PO Last administered on 03/13/17 08:37; Admin Dose 1 MG; Start 02/28/17 at 09:00 Multivitamins Therapeutic (Theragran) 1 tab DAILY PO Last administered on 08:36; Admin Dose 1 TAB; Start 02/28/17 at 09:00 Zolpidem Tartrate (Ambien) 5 mg HS PRN PO INSOMNIA Last administered on 22:08; Admin Dose 5 MG; Start 02/28/17 at 21:30 Acyclovir (Zovirax) 400 mg TID PO Last administered on 03/13/17 08:37; Admin Dose 400 MG; Start 03/03/17 at 09:00 Al Hydrox/Mg Hydrox/Simethicone (Mag-Al Plus) 30 ml Q4H PRN PO GASTROINTESTINAL UPSET; Start 03/03/17 at 22:00 Ondansetron HCl 4 mg 4 mg Q6H PRN IV NAUSEA AND/OR VOMITING Last administered on 03/06/17 11:01; Admin Dose 4 MG; Start 03/03/17 at 22:00 Rituximab 500 mg/ Rituximab 175 mg/ Sodium Chloride 337.5 ml @ 0 mls/hr ONCE IV Last administered on 03/12/17t 17:33; Admin Dose 0 MLS/HR; Start 03/12/17 at 16:00; Stop 03/13/17 at 15:59 Sodium Chloride (NS) 1,000 ml @ 75 mls/hr [id number] IV Last administered on 03/13t 03:36; Admin Dose 75 MLS/HR; Start 03/12/17 at 15:00; Stop 03/13/17 at 23: 00 Diphenhydramine HCl (Benadryl) 25 mg Q4H PRN IV ALLERGIC REACTION; Start at 15:00; Stop 03/13/17 at 14:59 Methylprednisolone Sodium Succinate (Solu-Medrol) 60 mg Q4H PRN IV ALLERGIC REACTION; Start 03/12/17 at 15:00; Stop 03/13/17 at 14:59 Meperidine HCl (Demerol) 25 mg Q4H PRN IV ALLERGIC REACTION; Start 03/12/17 at 15:00; Stop 03/13/17 at 14:59 PAMELA BENDER M.D. Mar 13, 2017 09:35
--- NOTE | 2017-03-13 13:43 | DS ---
Date/Time of Note Date/Time of Note DATE: 03/13/17 TIME: 13:42 Discharge Summary Admission/Discharge Info Admit Date/Time Feb 21, 2017 at 17:22 Discharge Date/Time Discharge Diagnosis - Autoimmune hemolytic anemia. -Restorationist and cannot get a blood transfusion. - Possible shingles-imp Patient Condition: Stable Hx of Present Illness Patient with a history of symptomatic anemia comes in with the same of feeling weak and tired. Hospital Course 31 y/o with cold agglutinan chronic hemolytic anemia with response to steroids in the past but unable to maintain her Hg once the steroid was tapered. 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 Pt is a [employer] and does not accept blood transfusion. response to steroids but whenever the dose of steroids are tapered, she develops symptomatic anemia,. Since she is Jehovah witness, she declines any blood products. Of note, Previous workup 12/11 did not show any abnormalities in peripheral blood cytogenetics, BCR ABL and had negative PNH workup. Pt was given Rituxan yesterday. Hg slowly rising, now stable and > 8.0 OFF STEROIDS (1) Autoimmune hemolytic anemia, cold antibody type Status: Acute Comment: -pt has col agglutinin disease. she is s/p IVIG and currently on steroids -discontinue Solumedrol 60mg IV for now -s/p 2nd dose o Rituxan 375mg/m2 today to be given weekly x 4 weeks. plan to given 3rd dose today -Cold Agglutinin titer at 1:4 -complement shows decrease of C3 -retic count is at 12% which shows bone marrow is trying to compensate -continue Cellcept 1000mg BID to help with hemolysis -SPEP and Serum ESTHER did not show evidence of monoclonal protein -continue folate and MVI -[facility] out patient referral -plan to dc patient on cellcept -DC PICC -OK FOR DC FROM [facility] STANDPOINT (2) Refusal of blood transfusions as patient is Restorationist Status: Chronic Comment: -continue EPO to 60,000 unit q week as an out patient -Ferrlecit x 5 days have continued (3) Back pain Status: Chronic Comment: -Tylenol po q 6 hours prn ordered Qualifiers: Back pain location: low back pain Chronicity: chronic Back pain laterality: right (4) Weakness generalized Status: Chronic Comment: -secondary to her anemia. -monitor sx as Hg rises. Problems: (1) Shingles rash Status: Acute Qualifiers: Herpes zoster complications: without complications Qualified Code: B02.9 - Herpes zoster without complication Home Meds Reported Medications Sulfamethoxazole/Trimethoprim* (Bactrim Ds* Tablet) 1 Each Tablet, 1 TAB PO DAILY, TAB ON FRIDAY AND Friday02/21/17 Prednisone* (Prednisone*) 10 Mg Tab, 10 MG PO DAILY, TAB 02/21/17 Primary Care Provider Justen Peter Time spent on discharge: > 30 minutes Pending Labs Laboratory Tests Test 03/13/17 04:40 White Blood Count 7.610^3/ul (4.8-10.8) Red Blood Count 2.1010^6/ul (4.20-5.40) Hemoglobin 8.6g/dl (12.0-16.0) Hematocrit 27.9% (37.0-47.0) Mean Corpuscular Volume 132.9fl (82.0-101.0) Mean Corpuscular Hemoglobin 41.0pg (29.0-33.0) Mean Corpuscular Hemoglobin Concent 30.8g/dl (32.0-37.0) Red Cell Distribution Width 26.8% (11.5-14.5) Platelet Count 85617^3/UL (140-415) Mean Platelet Volume 11.1fl (7.4-10.4) Neutrophils % % (39.0-77.0) Segmented Neutrophils % (Manual) 88% (39-77) Lymphocytes % % (15.0-51.0) Lymphocytes % (Manual) 10% (15-51) Monocytes % % (0.0-11.0) Monocytes % (Manual) 1% (0-11) Eosinophils % % (0.0-7.0) Basophils % % (0.0-2.0) Myelocytes % (Manual) 1% (0.0-0.0) Nucleated Red Blood Cells % 158% (0-0) Neutrophils # (Manual) 10^3/ul (1.7-7.5) Absolute Lymphocytes (Manual) 0.710^3/ul (0.8-2.9) Lymphocytes # 10^3/ul (0.8-2.9) Monocytes # 10^3/ul (0.3-0.9) Absolute Monocytes (Manual) 0.010^3/ul (0.3-0.9) Eosinophils # 10^3/ul (0.0-0.5) Basophils # 10^3/ul (0.0-0.1) Myelocytes # 0.010^3/ul (0.0-0.0) Nucleated Red Blood Cells # 10^3/ul (0.0-0.0) Platelet Estimate NORMAL Polychromasia 3+ (0-0) Poikilocytosis 1+ (0-0) Anisocytosis 3+ (0-0) Microcytosis 2+ (0-0) Macrocytosis 2+ (0-0) Spherocytes 1+ (0-0) Sodium Level 141mmol/L (135-144) Potassium Level 4.0mmol/L (3.5-5.1) Chloride Level 103mmol/L (97-110) Carbon Dioxide Level 27mmol/L (21-31) Anion Gap 15 (8-16) Blood Urea Nitrogen 16mg/dl (7-20) Creatinine 0.41mg/dl (0.44-1.00) Glucose Level 112mg/dl (70-220) Calcium Level 8.5mg/dl (8.4-10.2) JORJE NICHOLAS Mar 13, 2017 13:42
--- NOTE | 2017-03-13 13:48 | PDOCDIS ---
Discharge Instructions DIAGNOSIS Discharge Diagnosis - Autoimmune hemolytic anemia. -Buddhism and cannot get a blood transfusion. - Possible shingles-imp CONDITION Patient Condition: Stable HOME CARE INSTRUCTIONS: Special Diet: REGULAR. ACTIVITY: Activity Restrictions: Slowly Increase Activity Rest between Activity Avoid heavy lifting Do not Drive Do not operate Machinery Do not operate Power Tool Avoid Heavy Housework FOLLOW UP/APPOINTMENTS Follow-up Plan FU with Primary MD X 1 WEEK FU with Hematology as recommended Call 911 or go to the nearest hospital if symptoms get worse Patient verbalized understanding DC instructions JORJE NICHOLAS Mar 13, 2017 13:48
[2017-03-13] MEDS ORDERED: FOLI-49 PO (13:56)
[2017-03-13] MEDS ORDERED: PANT40TA4 PO (13:56)
[2017-03-13] MEDS ORDERED: MULTI PO (13:56)
--- NOTE | 2017-03-13 14:05 | DS ---
Date/Time of Note Date/Time of Note DATE: 03/13/17 TIME: 14:04 Discharge Summary Admission/Discharge Info Admit Date/Time Feb 21, 2017 at 17:22 Discharge Date/Time Discharge Diagnosis - Autoimmune hemolytic anemia. -B[employer]ism and cannot get a blood transfusion. - Possible shingles-imp Hx of Present Illness Patient with a history of symptomatic anemia comes in with the same of feeling weak and tired. Hospital Course 31 y/o with cold agglutinan chronic hemolytic anemia with response to steroids in the past but unable to maintain her Hg once the steroid was tapered. 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 response to steroids but whenever the dose of steroids are tapered, she develops symptomatic anemia,. Since she is Jehovah witness, she declines any blood products. Of note, Previous workup 12/11 did not show any abnormalities in peripheral blood cytogenetics, BCR ABL and had negative PNH workup. Pt was given Rituxan yesterday. Hg slowly rising, now stable and > 8.0 OFF STEROIDS (1) Autoimmune hemolytic anemia, cold antibody type Status: Acute Comment: -pt has col agglutinin disease. she is s/p IVIG and currently on steroids -discontinue Solumedrol 60mg IV for now -s/p 2nd dose o Rituxan 375mg/m2 today to be given weekly x 4 weeks. plan to given 3rd dose today -Cold Agglutinin titer at 1:4 -complement shows decrease of C3 -retic count is at 12% which shows bone marrow is trying to compensate -continue Cellcept 1000mg BID to help with hemolysis -SPEP and Serum ESTHER did not show evidence of monoclonal protein -continue folate and MVI -[facility] out patient referral -plan to dc patient on cellcept -DC PICC -OK FOR DC FROM [facility] STANDPOINT (2) Refusal of blood transfusions as patient is [employer]ism Status: Chronic Comment: -continue EPO to 60,000 unit q week as an out patient -Ferrlecit x 5 days have continued (3) Back pain Status: Chronic Comment: -Tylenol po q 6 hours prn ordered Qualifiers: Back pain location: low back pain Chronicity: chronic Back pain laterality: right (4) Weakness generalized Status: Chronic Comment: -secondary to her anemia. -monitor sx as Hg rises. Problems: (1) Shingles rash Status: Acute Qualifiers: Herpes zoster complications: without complications Qualified Code: B02.9 - Herpes zoster without complication Home Meds Active Scripts Pantoprazole* (Pantoprazole*) 40 Mg Tablet.dr, 40 MG PO DAILY@06 for 30 Days Prov:JORJE NICHOLAS 03/13/17 Multivitamins* (Theragran*) 1 Tab Tab, 1 TAB PO DAILY for 30 Days, TAB Prov:JORJE NICHOLAS 03/13/17 Folic Acid* (Folic Acid*) 1 Mg Tablet, 1 MG PO DAILY for 30 Days, TAB Prov:JORJE NICHOLAS 03/13/17 Reported Medications Prednisone* (Prednisone*) 10 Mg Tab, 10 MG PO DAILY, TAB 02/21/17 Discontinued Reported Medications Sulfamethoxazole/Trimethoprim* (Bactrim Ds* Tablet) 1 Each Tablet, 1 TAB PO DAILY, TAB ON FRIDAY AND Friday02/21/17 Primary Care Provider Justen Peter Pending Labs Laboratory Tests Test 03/13/17 04:40 White Blood Count 7.610^3/ul (4.8-10.8) Red Blood Count 2.1010^6/ul (4.20-5.40) Hemoglobin 8.6g/dl (12.0-16.0) Hematocrit 27.9% (37.0-47.0) Mean Corpuscular Volume 132.9fl (82.0-101.0) Mean Corpuscular Hemoglobin 41.0pg (29.0-33.0) Mean Corpuscular Hemoglobin Concent 30.8g/dl (32.0-37.0) Red Cell Distribution Width 26.8% (11.5-14.5) Platelet Count 18915^3/UL (140-415) Mean Platelet Volume 11.1fl (7.4-10.4) Neutrophils % % (39.0-77.0) Segmented Neutrophils % (Manual) 88% (39-77) Lymphocytes % % (15.0-51.0) Lymphocytes % (Manual) 10% (15-51) Monocytes % % (0.0-11.0) Monocytes % (Manual) 1% (0-11) Eosinophils % % (0.0-7.0) Basophils % % (0.0-2.0) Myelocytes % (Manual) 1% (0.0-0.0) Nucleated Red Blood Cells % 158% (0-0) Neutrophils # (Manual) 10^3/ul (1.7-7.5) Absolute Lymphocytes (Manual) 0.710^3/ul (0.8-2.9) Lymphocytes # 10^3/ul (0.8-2.9) Monocytes # 10^3/ul (0.3-0.9) Absolute Monocytes (Manual) 0.010^3/ul (0.3-0.9) Eosinophils # 10^3/ul (0.0-0.5) Basophils # 10^3/ul (0.0-0.1) Myelocytes # 0.010^3/ul (0.0-0.0) Nucleated Red Blood Cells # 10^3/ul (0.0-0.0) Platelet Estimate NORMAL Polychromasia 3+ (0-0) Poikilocytosis 1+ (0-0) Anisocytosis 3+ (0-0) Microcytosis 2+ (0-0) Macrocytosis 2+ (0-0) Spherocytes 1+ (0-0) Sodium Level 141mmol/L (135-144) Potassium Level 4.0mmol/L (3.5-5.1) Chloride Level 103mmol/L (97-110) Carbon Dioxide Level 27mmol/L (21-31) Anion Gap 15 (8-16) Blood Urea Nitrogen 16mg/dl (7-20) Creatinine 0.41mg/dl (0.44-1.00) Glucose Level 112mg/dl (70-220) Calcium Level 8.5mg/dl (8.4-10.2) JORJE NICHOLAS Mar 13, 2017 14:04
[2017-03-13 15:06] VITALS: BP 106/67; RESP 18
[2017-03-13] MEDS: EPOETIN 10000 UNITS/ML VIAL (ONCOLOGY) SC SCH (16:34)
== END 2017-03-13 17:15 | disposition still patient (30) | DRG 810 ==
LOC: FTE 14:08 → TEL 17:22 → MS2 03-08 01:22 → MS1 03-11 22:38
PROVIDERS: ADMIT Internal Medicine; ATTEND Internal Medicine
PROC: 02HV33Z Insertion of Infusion Device into Superior Vena Cava, Percutaneous Approach (ICD-10-PCS; principal; 2017-02-25)
DX: D59.1 Other autoimmune hemolytic anemias (principal); B02.9 Zoster without complications; D72.829 Elevated white blood cell count, unspecified; Z53.1 Procedure and treatment not carried out because of patient's decision for reasons of belief and group pressure; M54.9 Dorsalgia, unspecified
CPT/HCPCS: 36569; 71010; 76937; 80048; 80076; 81003; 82595; 82607; 82728; 82746; 82784; 83615; 84155; 84165; 85025; 85045; 85610; 85730; 86157; 86160; 86320; 86704; 86709; 86803; 86850; 86870; 86900; 86901; 87340; 96374; J0885; J9310; J1100; J1200; J1566; J2175; J2405; J2916; J2930; J7030; J7040; J7050; J7517